=== PATIENT | male | born 1935 | race Caucasian/White ===

== ENCOUNTER 2017-09-09 00:18 | Emergency (ER) | payer MEDICARE, BC ==
[2017-09-09 00:43] LABS: BASOPHILS % (AUTO) 0.4 %; EOSINOPHILS # (AUTO) 0.6 10^3/uL (0.0-0.7); EOSINOPHILS % (AUTO) 11.1 %; HGB - HEMOGLOBIN 15.4 g/dL (14.0-18.0); LYMPHOCYTES # (AUTO) 1.3 10^3/uL (1.5-3.5); LYMPHOCYTES % (AUTO) 23.1 %; MEAN CORPUSCULAR HEMOGLOBIN 33.5 pg (27.0-31.0); MEAN CORPUSCULAR HGB CONC 33.6 g/dL (32.0-36.0); MEAN CORPUSCULAR VOLUME 99.8 fL (80.0-94.0); MEAN PLATELET VOLUME 7.5 fL (7.4-11.4); MONOCYTES % (AUTO) 17.8 %; NEUTROPHILS # (AUTO) 2.7 10^3/uL (1.5-6.6); NEUTROPHILS % (AUTO) 47.6 %; PLT - PLATELET COUNT 197 10^3/uL (130-450); RED CELL DISTRIBUTION WIDTH 13.5 % (12.0-15.0); WHITE BLOOD COUNT 5.8 x10^3/uL (4.8-10.8)
[2017-09-09 00:56] LABS: ALBUMIN/GLOBULIN RATIO 1.2 (1.0-2.2); BILIRUBIN,TOTAL 0.6 mg/dL (0.2-1.0); CREATININE 0.7 mg/dL (0.6-1.2); TOTAL PROTEIN 7.4 g/dL (6.7-8.2)
[2017-09-09] MEDS ORDERED: NITROGLYCERIN 50 MG/250 ML 50 MG/250 ML BOTTLE IV SCH (01:00)
--- NOTE | 2017-09-09 01:07 | XRAY Report ---
EXAM: CHEST RADIOGRAPHY EXAM DATE: 09/09/2017 12:54 AM. CLINICAL HISTORY: Chest pressure. COMPARISON: None. TECHNIQUE: 2 views. FINDINGS: Lungs/Pleura: No alveolar consolidation or pleural effusion seen. No pneumothorax. Mediastinum: Heart size upper normal. Other: None. IMPRESSION: 1. Heart size upper normal. No acute abnormality seen. [facility] Referring Provider Line: [phone] SITE ID: [id number]
--- NOTE | 2017-09-09 01:07 | XRAY Preliminary Report ---
Exam: XR CHEST 2 VIEW PA/LAT IMPRESSION: 1. Heart size upper normal. No acute abnormality seen. [facility] SITE ID: [id number]
[2017-09-09 01:20] LABS: PT - PROTHROMBIN TIME 10.9 secs (9.9-12.6)
--- NOTE | 2017-09-09 01:29 | ED Physician Documentation ---
History of Present Illness - Stated complaint Stated Complaint: CHEST PRESSURE - Chief complaint Chief Complaint: Cardiac - History obtained from History obtained from: Patient (pt here for evaluation of left sided rib pain. he states that it was a gradula onset at atounf 1600 today and has been constant since then until he arrived in the ER then it went away. pinpoint on the left sided of his chest, no change with movement, no nausea, no radiation, no shortness of breath, no travel, was symptom free at the time of my evaluation.) Review of Systems Constitutional: denies: Fever, Chills Throat: denies: Dental pain / toothache, Sore throat Cardiac: reports: Other (left sided rib pain). denies: Chest pain / pressure, Palpitations, Pedal edema, Calf pain Respiratory: denies: Dyspnea, Cough, Hemoptysis, Wheezing GI: denies: Abdominal Pain, Abdominal Swelling, Nausea, Vomiting, Diarrhea : denies: Dysuria Skin: denies: Rash, Lesions, Laceration (s) Musculoskeletal: denies: Neck pain, Back pain, Extremity pain, Joint pain, Extremity swelling Neurologic: denies: Generalized weakness, Altered mental status, Headache PD PAST MEDICAL HISTORY - Past Medical History Past Medical History: Yes Cardiovascular: Hypertension, High cholesterol, Coronary artery disease Neuro: None HEENT: None - Present Medications Home Medications: Ambulatory Orders Medication Instructions Recorded Confirmed Aspirin [Aspirin EC] 81 mg PO DAILY 09/09/17 09/09/17 Atorvastatin [Lipitor] 10 mg PO DAILY 09/09/17 09/09/17 Calcium Carbonate/Vitamin D3 1 tab PO DAILY 09/09/17 09/09/17 [Calcium 500-Vit D3 600 Caplet] Carvedilol Phosphate [Coreg Cr] 40 mg PO DAILY 09/09/17 09/09/17 Cholecalciferol (Vitamin D3) 2,000 unit PO DAILY 09/09/17 09/09/17 [Vitamin D3] Diltiazem HCl [Diltiazem 24Hr Cd] 300 mg PO DAILY 09/09/17 09/09/17 Doxycycline Hyclate 50 mg PO DAILY 09/09/17 09/09/17 Krill Oil/[place]-3/Dha/Epa [[place]-3 1 cap PO DAILY 09/09/17 09/09/17 Krill Oil Softgel] Lisinopril 30 mg PO DAILY 09/09/17 09/09/17 Lutein/Zeaxanthin [Ocuvite Lutein 1 cap PO DAILY 09/09/17 09/09/17 25-5 mg Softgel] Ubidecarenone [Co Q-10] 300 mg PO DAILY 09/09/17 09/09/17 - Allergies Allergies/Adverse Reactions: Allergies Allergy/AdvReac Type Severity Reaction Status Date / Time No Known Drug Allergies Allergy Verified 09/09/17 00:22 - Social History Does the pt smoke?: No Smoking Status: Never smoker PD ED PE NORMAL - Vitals Vital signs reviewed: Yes - General General: Alert and oriented X 3, No acute distress, Well developed/nourished - HEENT HEENT: Atraumatic, Moist mucous membranes - Cardiac Cardiac: RRR, No murmur, No gallop, No rub - Respiratory Respiratory: No respiratory distress, Clear bilaterally - Abdomen Abdomen: Soft, Non tender, Non distended - Back Back: No CVA TTP, No spinal TTP - Derm Derm: Normal color, Warm and dry, No rash - Extremities Extremities: No edema, No calf tenderness / cord - Neuro Neuro: Alert and oriented X 3, Normal speech Eye Opening: Spontaneous Motor: Obeys Commands Verbal: Oriented GCS Score: 15 - Psych Psych: Normal mood, Normal affect Results - Vitals Vitals: Vital Signs - 24 hr 09/09/17 09/09/17 00:22 01:02 Temperature 36.9 C Heart Rate 78 67 Respiratory 18 18 Rate Blood Pressure 195/93 H 165/82 H O2 Saturation 95 97 Oxygen O2 Source Room air - EKG (time done) 0024 Rate: Rate (enter#) Rhythm: NSR [place]: Normal Intervals: Normal [place]. No: Prolonged QT QRS: Normal Ischemia: Normal ST segments - Labs Labs: Laboratory Tests 09/09/17 09/09/17 09/09/17 00:30 00:30 00:30 WBC 5.8 RBC 4.60 L Hgb 15.4 Hct 45.9 MCV 99.8 H MCH 33.5 H MCHC 33.6 RDW 13.5 Plt Count 197 MPV 7.5 Neut # 2.7 Lymph # 1.3 L [place] # 1.0 Eos # 0.6 Baso # 0.0 Absolute Nucleated RBC 0.00 Nucleated RBC % 0.0 PT INR APTT Sodium 140 Potassium 3.6 Chloride 102 Carbon Dioxide 28 Anion Gap 10.0 BUN 11 Creatinine 0.7 Estimated GFR (MDRD) 108 Glucose 200 H Calcium 9.0 Total Bilirubin 0.6 AST 20 ALT 17 Alkaline Phosphatase 59 Troponin I < 0.04 Total Protein 7.4 Albumin 4.0 Globulin 3.4 Albumin/Globulin Ratio 1.2 Lipase 26 09/09/17 01:00 WBC RBC Hgb Hct MCV MCH MCHC RDW Plt Count MPV Neut # Lymph # [place] # Eos # Baso # Absolute Nucleated RBC Nucleated RBC % PT 10.9 INR 1.0 APTT 29.9 Sodium Potassium Chloride Carbon Dioxide Anion Gap BUN Creatinine Estimated GFR (MDRD) Glucose Calcium Total Bilirubin AST ALT Alkaline Phosphatase Troponin I Total Protein Albumin Globulin Albumin/Globulin Ratio Lipase - Rads (name of study) CXR Radiology: Final report received (No acute changes) PD MEDICAL DECISION MAKING - ED course Complexity details: reviewed results, re-evaluated patient, considered differential, d/w patient ED course: pt with pinpoint left sided rib pain that had resolved by the time of my evaluation. He had a neg trop and normal ECG > 6 hours after the onset of the symptoms. pt CXR neg. doubt ACS now. we discussed his symptoms and his blood pressure. he is on medications for his HTN and will follow up with his PCM. pt was given return precautions. Departure - Departure Disposition: 01 Home, Self Care Clinical Impression: Chest wall pain Condition: Good Instructions: ED Chest Pain NonCardiac Follow-Up: ZEYAD LAL PA-C [Primary Care Provider] - Comments: Recommend that you contact your primary care provider for a follow up in the next couple days. Continue all of your medications. Return to the ER for any new or worsening symptoms.
[2017-09-09 02:12] VITALS: BP 174/85
== END 2017-09-09 02:18 | disposition home or self-care (01) ==
LOC: ED 00:18
DX: R07.89 Other chest pain (principal); I10 Essential (primary) hypertension; E78.00 Pure hypercholesterolemia, unspecified; I25.10 Atherosclerotic heart disease of native coronary artery without angina pectoris; Z79.82 Long term (current) use of aspirin
CPT/HCPCS: 36415; 71020; 80053; 83690; 84484; 85025; 85610; 85730; 93005; 99283

== ENCOUNTER 2019-07-20 12:57 | Inpatient (IN) | payer MEDICARE, BC ==
--- NOTE | 2019-07-20 13:26 | ED Physician Documentation ---
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 He has long-standing issues with his left eye and over the last week has developed abdominal distention, constipation and some abdominal pain as well as generalized weakness and multiple falls without injury. He does drink alcohol daily. He denies any history of abdominal surgeries.) Review of Systems Ten Systems: 10 systems reviewed and negative Constitutional: reports: Fatigue. denies: Fever, Chills Cardiac: denies: Chest pain / pressure, Palpitations Respiratory: denies: Dyspnea, Cough GI: reports: Abdominal Pain, Abdominal Swelling, Constipation. denies: Nausea, Vomiting : denies: Dysuria PD PAST MEDICAL HISTORY - Past Medical History Cardiovascular: Hypertension, High cholesterol, Coronary artery disease HEENT: None - Present Medications Home Medications: Ambulatory Orders Medication Instructions Recorded Confirmed Aspirin [Aspirin EC] 81 mg PO DAILY 09/09/17 09/09/17 Atorvastatin [Lipitor] 10 mg PO DAILY 09/09/17 09/09/17 Calcium Carbonate/Vitamin D3 1 tab PO DAILY 09/09/17 09/09/17 [Calcium 500-Vit D3 600 Caplet] Carvedilol Phosphate [Coreg Cr] 40 mg PO DAILY 09/09/17 09/09/17 Cholecalciferol (Vitamin D3) 2,000 unit PO DAILY 09/09/17 09/09/17 [Vitamin D3] Doxycycline Hyclate 50 mg PO DAILY 09/09/17 09/09/17 Krill Oil/[place]-3/Dha/Epa [[place]-3 1 cap PO DAILY 09/09/17 09/09/17 Krill Oil Softgel] Lisinopril 30 mg PO DAILY 09/09/17 09/09/17 Lutein/Zeaxanthin [Ocuvite Lutein 1 cap PO DAILY 09/09/17 09/09/17 25-5 mg Softgel] Ubidecarenone [Co Q-10] 300 mg PO DAILY 09/09/17 09/09/17 dilTIAZem HCl [Diltiazem 24Hr Cd] 300 mg PO DAILY 09/09/17 09/09/17 - Allergies Allergies/Adverse Reactions: Allergies Allergy/AdvReac Type Severity Reaction Status Date / Time No Known Drug Allergies Allergy Verified 09/09/17 00:22 - Social History Does the pt smoke?: No Smoking Status: Never smoker - Family History Family history: reports: Non contributory PD ED PE NORMAL - Vitals Vital signs reviewed: Yes (Initial vital signs in the room are much better than they were in triage) - General General: Alert and oriented X 3, No acute distress - HEENT HEENT: Other (He has a patch over the left eye) - Neck Neck: Supple, no meningeal sign, No bony TTP - Cardiac Cardiac: RRR, No murmur - Respiratory Respiratory: No respiratory distress, Clear bilaterally - Abdomen Abdomen: Other (Distended abdomen, tympanitic to percussion, nontender.) - Back Back: No CVA TTP, No spinal TTP - Derm Derm: Normal color, Warm and dry - Extremities Extremities: No edema, No calf tenderness / cord - Neuro Neuro: Alert and oriented X 3, Normal speech Results - Vitals Vitals: Vital Signs - 24 hr 07/20/19 07/20/19 07/20/19 13:12 13:40 13:47 Temperature 95 C H Heart Rate 53 L 64 Respiratory 18 18 Rate Blood Pressure 72/50 L 125/71 O2 Saturation 87 L 88 L 93 07/20/19 07/20/19 15:00 16:03 Temperature Heart Rate 64 63 Respiratory 23 23 Rate Blood Pressure 123/69 136/79 H O2 Saturation 95 92 Oxygen O2 Source Nasal cannula - EKG (time done) 1353 Rate: Rate (enter#) (63) Rhythm: NSR [place]: Normal Intervals: Normal [place] QRS: LVH Ischemia: Normal ST segments, Q waves (inferior) Computer interpretation: Agree with computer - Labs Labs: Laboratory Tests 07/20/19 07/20/19 07/20/19 13:29 13:29 13:29 WBC 8.6 RBC 4.31 L Hgb 14.9 Hct 44.6 MCV 103.5 H MCH 34.6 H MCHC 33.4 RDW 13.8 Plt Count 191 MPV 9.9 Neut # (Auto) 6.1 Lymph # (Auto) 1.1 L [place] # (Auto) 1.3 H Eos # (Auto) 0.1 Baso # (Auto) 0.0 Absolute Nucleated RBC 0.00 Nucleated RBC % 0.0 Manual Slide Review Indicated RBC Morph Micro Appear 1+ ANISOCYTOSIS PT 11.2 INR 1.0 Sodium 136 Potassium 3.9 Chloride 96 L Carbon Dioxide 27 Anion Gap 13.0 BUN 32 H Creatinine 1.2 Estimated GFR (MDRD) 58 L Glucose 169 H Lactic Acid Calcium 9.5 Total Bilirubin 1.7 H AST 66 H ALT 58 Alkaline Phosphatase 72 Total Protein 6.9 Albumin 3.7 Globulin 3.2 Albumin/Globulin Ratio 1.2 Lipase 26 Ethyl Alcohol < 5.0 07/20/19 13:29 WBC RBC Hgb Hct MCV MCH MCHC RDW Plt Count MPV Neut # (Auto) Lymph # (Auto) [place] # (Auto) Eos # (Auto) Baso # (Auto) Absolute Nucleated RBC Nucleated RBC % Manual Slide Review RBC Morph Micro Appear PT INR Sodium Potassium Chloride Carbon Dioxide Anion Gap BUN Creatinine Estimated GFR (MDRD) Glucose Lactic Acid 2.8 H Calcium Total Bilirubin AST ALT Alkaline Phosphatase Total Protein Albumin Globulin Albumin/Globulin Ratio Lipase Ethyl Alcohol - Rads (name of study) Ct A/P Radiology: EMP read contemporaneously (Large and small bowel obstruction with transition in the sigmoid concerning for an occult colon cancer. Liver lesion needing follow-up, small ascites, trace right pleural effusion, cardiomegaly, underdistended IVC) PD MEDICAL DECISION MAKING - ED course ED course: 84-year-old gentleman presents with a progressive abdominal distention associated with decreased bowel movements but no vomiting. CT as shown concerning for a bowel obstruction potentially due to an occult malignancy. Spoke with the on-call surgeon, Dr. Guajardo for consultation and admitted to the hospitalist, Dr. Garces. Departure - Departure Disposition: 66 [facility] DC/Xfer Clinical Impression: Bowel obstruction Qualifiers: Intestinal obstruction type: unspecified Intestinal obstruction extent: unspecified extent Qualified Code(s): K56.609 - Unspecified intestinal obstruction, unspecified as to partial versus complete obstruction Condition: Serious
[2019-07-20] MEDS ORDERED: IOVERSOL 320 100 ML VIAL IVP ONE ×2 (13:43→16:15)
[2019-07-20 13:46] LABS: BASOPHILS % (AUTO) 0.2 %; EOSINOPHILS # (AUTO) 0.1 10^3/uL (0.0-0.7); EOSINOPHILS % (AUTO) 1.3 %; HGB - HEMOGLOBIN 14.9 g/dL (14.0-18.0); LYMPHOCYTES # (AUTO) 1.1 10^3/uL (1.5-3.5); LYMPHOCYTES % (AUTO) 12.3 %; MEAN CORPUSCULAR HEMOGLOBIN 34.6 pg (27.0-31.0); MEAN CORPUSCULAR HGB CONC 33.4 g/dL (32.0-36.0); MEAN CORPUSCULAR VOLUME 103.5 fL (80.0-94.0); MEAN PLATELET VOLUME 9.9 fL (7.4-11.4); MONOCYTES # (AUTO) 1.3 10^3/uL (0.0-1.0); MONOCYTES % (AUTO) 14.6 %; NEUTROPHILS # (AUTO) 6.1 10^3/uL (1.5-6.6); NEUTROPHILS % (AUTO) 71.3 %; PLT - PLATELET COUNT 191 10^3/uL (130-450); RED BLOOD COUNT 4.31 10^6/uL (4.70-6.10); RED CELL DISTRIBUTION WIDTH 13.8 % (12.0-15.0); WHITE BLOOD COUNT 8.6 x10^3/uL (4.8-10.8)
[2019-07-20 13:47] LABS: PT - PROTHROMBIN TIME 11.2 secs (9.9-12.6)
[2019-07-20 13:59] LABS: ALBUMIN 3.7 g/dL (3.2-5.5); ALBUMIN/GLOBULIN RATIO 1.2 (1.0-2.2); ALKALINE PHOSPHATASE 72 IU/L (42-121); ALT ALANINE AMINOTRANSFERASE 58 IU/L (10-60); AST ASPARTATE AMINOTRANSFERASE 66 IU/L (10-42); BILIRUBIN,TOTAL 1.7 mg/dL (0.2-1.0); BUN - BLOOD UREA NITROGEN 32 mg/dL (6-20); CALCIUM 9.5 mg/dL (8.5-10.3); CARBON DIOXIDE - CO2 27 mmol/L (21-32); CHLORIDE 96 mmol/L (101-111); CREATININE 1.2 mg/dL (0.6-1.2); GFR - MDRD 58 (>89); GLUCOSE 169 mg/dL (70-100); LIPASE 26 U/L (22-51); SODIUM 136 mmol/L (135-145); TOTAL PROTEIN 6.9 g/dL (6.7-8.2)
[2019-07-20 14:00] LABS: RBC MORPHOLOGY (MULTIPLE) 1+ ANISOCYTOSIS (NORMAL)
[2019-07-20] MEDS ORDERED: SODIUM CHLORIDE 0.9% 1,000 ML IV ONE ×2 (15:02)
--- NOTE | 2019-07-20 15:50 | CT Report ---
Reason: IV only, abd pain Procedure Date: 07/20/2019 Accession Number: [id number] / [id number] Procedure: CT - Abdomen/Pelvis W CPT Code: Final Report FULL RESULT: EXAM: CT ABDOMEN AND PELVIS EXAM DATE: 07/20/2019 02:28 PM. CLINICAL HISTORY: Abdominal pain COMPARISONS: None. TECHNIQUE: Routine helical CT imaging was performed through the abdomen and pelvis. IV contrast: 90 cc Optiray 320. Enteric contrast: No. Reconstructions: Coronal and sagittal. In accordance with CT protocol optimization, one or more of the following dose reduction techniques were utilized for this exam: automated exposure control, adjustment of mA and/or KV based on patient size, or use of iterative reconstructive technique. FINDINGS: Imaged chest: Trace right pleural effusion with right lower lobe subsegmental atelectasis. Ground glass opacity within the left lingula and left lower lobe. Cardiomegaly and coronary artery disease. Liver: There is a 2 cm hypoenhancing lesion within the posterior aspect of segment 7 (image 21, series 3) which is nonspecific. The liver is diffusely decreased in attenuation consistent fatty infiltration. There is a linear 2 cm focus of hypoattenuation within segment 2/3 which may represent scarring. Gallbladder: Unremarkable. Biliary: Unremarkable. Pancreas: Unremarkable. Spleen: Unremarkable. Adrenal glands: Unremarkable. Kidneys: Right renal cyst. Otherwise unremarkable. Urinary bladder: Thick-walled which may be secondary to underdistention. Reproductive organs: Enlarged prostate. Bowel: Dilated small and large bowel with foci of pseudo-pneumatosis seen within the ascending colon and cecum. No obvious bowel wall thickening, however, there is liquid stool in the descending colon. There is an abrupt transition to normal caliber within the proximal sigmoid colon (series 5, image 33) without obvious mass, however, there is a adjacent prominent mesenteric lymph node. Stomach: Unremarkable. Appendix: Unremarkable. Miscellaneous: Small ascites. No extraluminal gas. Aorta: Mild aortic atherosclerosis. Normal in caliber. IVC: Underdistended. Lymph nodes: No pathologically enlarged lymph nodes identified. Bones: Several healing right anterior rib fractures. There is a nonspecific 4.5 mm sclerotic lesion in T5. Sidewalls: Small fat-containing left inguinal hernia. IMPRESSION: 1. Dilated small and large bowel with abrupt transition to normal caliber in the proximal sigmoid colon. No obvious mass, however, there is an adjacent prominent mesenteric lymph node. No obvious bowel wall thickening. There is pseudo-pneumatosis within the ascending colon. Given abrupt transition point findings concerning for occult colon cancer. However, liquid stool in the colon and small bowel could be seen in enterocolitis. Recommend Gastroenterology consultation and colonoscopy for further evaluation. 2. Suspicious 2 cm hypoenhancing lesion within the right posterior liver. Recommend nonemergent MRI liver for further evaluation. 3. Small ascites. 4. Trace right pleural effusion with right lower lobe subsegmental atelectasis. Ground glass opacity within the left lingula and left lower lobe favored to represent atelectasis, however, infection/inflammation could have a similar appearance. 6. Cardiomegaly. 7. Underdistended IVC suggests dehydration. DEMARCO The above call report findings were discussed with Romero Tracey by Dr. Joe Orosco at 03:36 PM on 07/20/2019.
--- NOTE | 2019-07-20 16:02 | CONSULTATION NOTE ---
Referring Provider Name of Referring Provider:: arlene Consult Date: 07/20/19 Chief Complaint - Chief Complaint Chief Complaint: Abd distention / no BM x 3 days History of Present Illness - Admitted From Admitted From:: ED - History Obtained From Records Reviewed: yes History obtained from: ED record Exam Limitations: None - History of Present Illness HPI Comment/Other: 84 yo/wm w/abd distention and no BM x 3 days R/O bowel obst History - Past Medical History Cardiovascular: reports: Hypertension, High cholesterol, Coronary artery disease HEENT: reports: None MRSA Hx?: No - Family & Social History Living arrangement: At home Living Situation: With spouse/s.o. Meds/Allgy - Home Medications Home Medications: Ambulatory Orders Medication Instructions Recorded Confirmed Aspirin [Aspirin EC] 81 mg PO DAILY 09/09/17 09/09/17 Atorvastatin [Lipitor] 10 mg PO DAILY 09/09/17 09/09/17 Calcium Carbonate/Vitamin D3 1 tab PO DAILY 09/09/17 09/09/17 [Calcium 500-Vit D3 600 Caplet] Carvedilol Phosphate [Coreg Cr] 40 mg PO DAILY 09/09/17 09/09/17 Cholecalciferol (Vitamin D3) 2,000 unit PO DAILY 09/09/17 09/09/17 [Vitamin D3] Doxycycline Hyclate 50 mg PO DAILY 09/09/17 09/09/17 Krill Oil/[place]-3/Dha/Epa [[place]-3 1 cap PO DAILY 09/09/17 09/09/17 Krill Oil Softgel] Lisinopril 30 mg PO DAILY 09/09/17 09/09/17 Lutein/Zeaxanthin [Ocuvite Lutein 1 cap PO DAILY 09/09/17 09/09/17 25-5 mg Softgel] Ubidecarenone [Co Q-10] 300 mg PO DAILY 09/09/17 09/09/17 dilTIAZem HCl [Diltiazem 24Hr Cd] 300 mg PO DAILY 09/09/17 09/09/17 - Allergies Allergies/Adverse Reactions: Allergies Allergy/AdvReac Type Severity Reaction Status Date / Time No Known Drug Allergies Allergy Verified 09/09/17 00:22 Review of Systems - Constitutional Constitutional: reports: Fatigue, Poor appetite - Eyes Eyes: reports: Other (Watering left eye) - Gastrointestinal Gastrointestinal: reports: Abdominal distention, Constipation, Change in bowel habits Exam - Vital Signs Reviewed Vital Signs: Yes Vital Signs: Vital Signs x48h Temp Pulse Resp BP Pulse Ox 07/20/19 15:00 64 23 123/69 95 07/20/19 13:47 93 07/20/19 13:40 95 C H 64 18 125/71 88 L 07/20/19 13:12 53 L 18 72/50 L 87 L - Physical Exam General Appearance: positive: No acute distress Eyes Bilateral: positive: Other (Patch OS) Respiratory: positive: Chest non-tender, No respiratory distress, Breath sounds nml Cardiovascular: positive: Regular rate & rhythm Abdomen: positive: Non-tender, Nml bowel sounds, Other (Abd distention) Conclusion/Plan - Diagnosis Diagnosis: Possible large bowel obstruction - Plan Plan: Hospitalist to admit Observation Recommend return flow enema - Lab Results Lab results reviewed: Yes Fish Bones: 07/20/19 13:29 07/20/19 13:29 - Diagnostic Imaging Results Diagnostic Imaging Results: positive: Final report reviewed
[2019-07-20] MEDS ORDERED: ACETAMINOPHEN 325 MG TABLET PO PRN (16:12)
[2019-07-20] MEDS ORDERED: ONDANSETRON 4 MG/2 ML VIAL IVP PRN (16:12)
[2019-07-20] MEDS ORDERED: METOPROLOL 5 MG/5 ML VIAL IVP PRN (16:56)
--- NOTE | 2019-07-20 17:13 | HISTORY & PHYSICAL EXAMINATION ---
Chief Complaint - Chief Complaint Chief Complaint: abdominal distension History of Present Illness - History of Present Illness HPI Comment/Other: Mr. 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 HLD, CAD, who presents ER by private vehicle accompanied by his , complain of abdominal distension. pt report he has abdominal distended for three days. He report he did not have bowel movement for three days as well. He denies nausea, vomiting or abdominal pain. He report he did not eat much for three days because of distended abdomen. he report he never had EGD or colonoscopy. He report he has long-standing issues with his left eye. he also report he has generalized weakness and multiple falls but without injury. He denies any history of abdominal surgeries. He denies recent weight loss, GI bleed. CT of abdomen reveals dilated small and large bowel with abrupt transition to normal caliber in the proximal sigmoid colon, concerning for occult colon cancer. surgeon Dr. Guajardo was consulted. Dr. Guajardo recommended to have return flow enema for pt. pt is admitted for above medical reason. History - Past Medical History Cardiovascular: reports: Hypertension, High cholesterol, Coronary artery disease HEENT: reports: None MRSA Hx?: No - Family & Social History Family History: Mother: , Alzheimer's Disease, Father: Family History Comment/Other: pt report his mother from dementia at age 78, he is unclear to his father's health condition. he had two children. Living arrangement: At home Living Situation: With spouse/s.o. Social History Notes: he denies cigarette smoker, alcohol and drug issue. he r eport he was a professor of [employer] [place] before he was retired. he is living at [place] with his . - POLST POLST Status: DNR Meds/Allgy - Home Medications Home Medications: Ambulatory Orders Medication Instructions Recorded Confirmed Aspirin [Aspirin EC] 81 mg PO DAILY 09/09/17 09/09/17 Atorvastatin [Lipitor] 10 mg PO DAILY 09/09/17 09/09/17 Calcium Carbonate/Vitamin D3 1 tab PO DAILY 09/09/17 09/09/17 [Calcium 500-Vit D3 600 Caplet] Carvedilol Phosphate [Coreg Cr] 40 mg PO DAILY 09/09/17 09/09/17 Cholecalciferol (Vitamin D3) 2,000 unit PO DAILY 09/09/17 09/09/17 [Vitamin D3] Doxycycline Hyclate 50 mg PO DAILY 09/09/17 09/09/17 Krill Oil/Colo-3/Dha/Epa [Colo-3 1 cap PO DAILY 09/09/17 09/09/17 Krill Oil Softgel] Lisinopril 30 mg PO DAILY 09/09/17 09/09/17 Lutein/Zeaxanthin [Ocuvite Lutein 1 cap PO DAILY 09/09/17 09/09/17 25-5 mg Softgel] Ubidecarenone [Co Q-10] 300 mg PO DAILY 09/09/17 09/09/17 dilTIAZem HCl [Diltiazem 24Hr Cd] 300 mg PO DAILY 09/09/17 09/09/17 - Allergies Allergies/Adverse Reactions: Allergies Allergy/AdvReac Type Severity Reaction Status Date / Time No Known Drug Allergies Allergy Verified 09/09/17 00:22 Review of Systems - Constitutional Constitutional: denies: Fatigue, Fever, Chills, Malaise, Weakness, Poor appetite, Diaphoresis, Night sweats - Eyes Eyes: denies: Pain, Irritation, Spots in vision, Field loss, Vision loss, Dipolpia - Ears, Nose & Throat Ears, Nose & Throat: denies: Ear pain, Hearing loss, Hearing aids, Tinnitus, Vertigo, Nasal pain, Nasal discharge, Nosebleeds, Nasal obstruction, Nasal con gestion, Postnasal drainage, Dentures, Sore throat, Hoarseness, Mouth lesions - Cardiovascular Cariovascular: denies: Irregular heart rate, Palpitations, Chest pain, Edema, Lightheadedness, Syncope, Exertional dyspnea, Decr. exercise tolerance - Respiratory Respiratory: denies: Cough, Sputum production, Wheezing, Snoring, Hemoptysis, Orthopnea, SOB at rest, SOB with exertion - Gastrointestinal Gastrointestinal: reports: Abdominal distention. denies: Abdominal pain, Constipation, Diarrhea, Change in bowel habits, Rectal bleeding, Black stools, Bloody stools, Nausea, Vomiting, Bile emesis, Cesar blood emesis, Coffee grounds emesis, Reflux/heartburn - Genitourinary Genitourinary: denies: Dysuria, Frequency, Urgency, Hematuria, Incontinence, Flank pain, Nocturia - Musculoskeletal Musculoskeletal: denies: Muscle pain, Back pain, Muscle aches, Stiffness, Limited range of motion, Muscle weakness - Integumentary Integumentary: denies: Rash, Pruritis, Lesions, Dryness, Lumps, Acne, Pigment changes - Neurological Neurological: denies: General weakness, Focal weakness, Headache, Dizziness, Numbness, Memory problems, Pre-existing deficit, Abnormal gait, Seizures, Incoordination, Slurred speech - Psychiatric Psychiatric: denies: Depression, Anxiety, Suicidal, Delusions, Hallucinations, Homicidal - Endocrine Endocrine: denies: Polyuria, Polydypsia, Polyphagia - Hematologic/Lymphatic Hematologic/Lymphatic: denies: Anemia, Bruising, Petechiae, Blood clots, Lymphadenopathy, Bleeding tendencies Exam - Vital Signs Reviewed Vital Signs: Yes Vital Signs: Vital Signs x48h Temp Pulse Resp BP Pulse Ox 07/20/19 17:00 62 18 133/75 H 91 L 07/20/19 16:03 63 23 136/79 H 92 07/20/19 15:00 64 23 123/69 95 07/20/19 13:47 93 07/20/19 13:40 95 C H 64 18 125/71 88 L 07/20/19 13:12 53 L 18 72/50 L 87 L - Physical Exam General Appearance: positive: No acute distress, Alert. negative: Lethargic Eyes Bilateral: positive: Normal inspection, PERRL ENT: positive: ENT inspection nml, Pharynx nml. negative: Purulent nasal drainage Neck: positive: Nml inspection, Thyroid nml, No JVD, Trachea midline. negative: Thyromegaly, Lymphadenopathy (R), Lymphadenopathy (L), Stiff neck, Tracheal deviation Respiratory: positive: Chest non-tender, No respiratory distress, Breath sounds nml. negative: Wheezes, Rales, Rhonchi Cardiovascular: positive: Regular rate & rhythm, No murmur, No gallop. negative: Irregularly irregular, Bradycardia, JVD present, Systolic murmur, Diastolic murmur Peripheral Pulses: positive: 2+ Abdomen: positive: Abnml bowel sounds, Other (abdomen extensive distention, but without tenderness, significant reduced bowel sound). negative: Tenderness, Guarding, Rebound Back: positive: Nml inspection. negative: CVA tenderness (R), CVA tenderness (L) Skin: positive: Color nml, No rash, Warm, Dry. negative: Cyanosis, Diaphoresis, Pallor Extremities: positive: Non-tender, Nml appearance. negative: Calf tenderness, Columba's sign/cords Neurologic/Psychiatric: positive: Oriented x3, Sensation nml. negative: Weakness, Sensory loss, Facial droop, Slurred/abnml speech, Depressed mood/affect Sepsis Event Note (H) - Evaluation Current Stage of Sepsis: Ruled out Conclusion/Plan - Problem List (1) Abdominal distention Conclusion/Plan: pt present extensive abdominal distention, but pt did not have N/V and obvious abdominal pain. pt report he has no bowel movement for three days. CT reveals dilation at proximal large colon close to sigmoid area, also concern of occult colon cancer. pt has never had EGD or colonoscopy in his life. GI surgeon was consulted in ER, and recommend to have return flow enema for pt now. NPO with IVF of NS since pt has no N/V, NG is not needed now PRN meds for abdominal pain and nausea lab and vital and tele monitor (2) HTN (hypertension) Conclusion/Plan: stable now, since any meds is switched IV, PRN metoprolol IV now. vital monitor closely (3) HLD (hyperlipidemia) Conclusion/Plan: pt has home lipitor, hold now since NPO, will reconcile after pharmacy verify (4) Hx of coronary artery disease Conclusion/Plan: stable, denies chest pain, palpitation. will reconcile home meds after verified (5) Dehydration Conclusion/Plan: pt report he did not drink much water since his abdomen distended. pt clinic present dry mouth and dehydration IVF of NS lab and vital monitor (6) Do not attempt intubation Conclusion/Plan: pt request do not attempt intubation, but wish to have CPR, chest compression for his code status - Lab Results Lab results reviewed: Yes Fish Bones: 07/20/19 13:29 07/20/19 13:29 Core Measures - Anticipated LOS I expect patient to be DC'd or transferred within 96 hours.: Yes - DVT/VTE - Prophylaxis VTE/DVT Device ordered at admit?: Yes VTE/DVT Prophylaxis med ordered at admit?: Yes
[2019-07-20] MEDS: SODIUM CHLORIDE 0.9% 1,000 ML IV SCH (18:09)
[2019-07-20] MEDS: SODIUM CHLORIDE FLUSH 0.9% 10 ML SYRINGE IVP PRN (18:10)
[2019-07-20] MEDS ORDERED: hydrALAZINE INJ 20 MG/ML VIAL IVP PRN (18:27)
[2019-07-20] MEDS: SODIUM CHLORIDE FLUSH 0.9% 10 ML SYRINGE IVP SCH (23:50)
[2019-07-21 01:14] LABS: GLUCOSE, URINE (UA) NEGATIVE (NEGATIVE); KETONES,URINE (UA) 15 mg/dL (NEGATIVE); LEUKOCYTE ESTERASE, URINE NEGATIVE (NEGATIVE); NITRITE,URINE NEGATIVE (NEGATIVE); OCCULT BLOOD,URINE TRACE-INTA (NEGATIVE); PH,URINE 6.5 PH (5.0-7.5); PROTEIN,URINE TRACE mg/dL (NEGATIVE); UROBILINOGEN,URINE 1 (NORMAL) E.U./dL (NORMAL)
[2019-07-21 01:16] LABS: CLARITY,URINE CLEAR (CLEAR)
[2019-07-21 01:18] LABS: BILIRUBIN,URINE NEGATIVE (NEGATIVE); ICTOTEST,URINE NEGATIVE
[2019-07-21] MEDS: SODIUM CHLORIDE 0.9% 1,000 ML IV SCH (04:21)
[2019-07-21 05:03] LABS: BASOPHILS % (AUTO) 0.3 %; HGB - HEMOGLOBIN 13.8 g/dL (14.0-18.0); LYMPHOCYTES % (AUTO) 20.2 %; MEAN CORPUSCULAR HEMOGLOBIN 34.4 pg (27.0-31.0); MEAN CORPUSCULAR HGB CONC 33.2 g/dL (32.0-36.0); MEAN CORPUSCULAR VOLUME 103.7 fL (80.0-94.0); MEAN PLATELET VOLUME 9.8 fL (7.4-11.4); MONOCYTES % (AUTO) 23.8 %; NEUTROPHILS % (AUTO) 55.4 %; PLT - PLATELET COUNT 166 10^3/uL (130-450); RED BLOOD COUNT 4.01 10^6/uL (4.70-6.10); RED CELL DISTRIBUTION WIDTH 14.1 % (12.0-15.0); WHITE BLOOD COUNT 3.3 x10^3/uL (4.8-10.8)
[2019-07-21 05:04] LABS: ALBUMIN 3.1 g/dL (3.2-5.5); ALBUMIN/GLOBULIN RATIO 1.1 (1.0-2.2); BILIRUBIN,TOTAL 1.6 mg/dL (0.2-1.0); CALCIUM 8.5 mg/dL (8.5-10.3); CREATININE 0.8 mg/dL (0.6-1.2); MAGNESIUM 2.8 mg/dL (1.7-2.8)
[2019-07-21 05:06] LABS: ABNORMAL LYMPHS % (MANUAL) 0 %
[2019-07-21 05:20] LABS: BAND NEUTROPHILS % (MANUAL) 27 %; DIFFERENTIAL COMMENT MANUAL DIFFERENTIAL; LYMPHOCYTES # (MANUAL) 0.8 10^3/uL (1.5-3.5); LYMPHOCYTES % (MANUAL) 24 %; MONOCYTES # (MANUAL) 0.5 10^3/uL (0.0-1.0); PLATELET ESTIMATE, MANUAL NORMAL (130-450,000) (NORMAL); RBC MORPHOLOGY (MULTIPLE) NORMAL APPEARANCE (NORMAL)
[2019-07-21] MEDS: SODIUM CHLORIDE FLUSH 0.9% 10 ML SYRINGE IVP PRN ×2 (06:16→22:21)
[2019-07-21] MEDS ORDERED: PANTOPRAZOLE 40 MG VIAL IVP SCH (07:00)
[2019-07-21] MEDS ORDERED: ALBUTEROL NEB 2.5 MG/3 ML INH PRN (08:34)
[2019-07-21] MEDS ORDERED: IPRATROPIUM/ALBUTEROL 3 ML NEB INH PRN (08:35)
[2019-07-21] MEDS: ENOXAPARIN 40 MG/0.4 ML SYRINGE SUBQ SCH ×2 (08:53→11:40)
[2019-07-21] MEDS: SODIUM CHLORIDE FLUSH 0.9% 10 ML SYRINGE IVP SCH (08:54)
[2019-07-21] MEDS ORDERED: LIDOCAINE JELLY 2% 5 ML TUBE TOP ONE (09:00)
[2019-07-21] MEDS ORDERED: POTASSIUM CHLOR 10 MEQ/100 ML 10 MEQ/100 ML BAG IV ONE (09:00)
[2019-07-21 09:17] LABS: BASOPHILS % (AUTO) 0.3 %; HGB - HEMOGLOBIN 14.2 g/dL (14.0-18.0); LYMPHOCYTES # (AUTO) 0.7 10^3/uL (1.5-3.5); LYMPHOCYTES % (AUTO) 21.6 %; MEAN CORPUSCULAR HEMOGLOBIN 34.7 pg (27.0-31.0); MEAN CORPUSCULAR VOLUME 105.1 fL (80.0-94.0); MEAN PLATELET VOLUME 10.1 fL (7.4-11.4); MONOCYTES # (AUTO) 0.7 10^3/uL (0.0-1.0); MONOCYTES % (AUTO) 23.2 %; NEUTROPHILS # (AUTO) 1.7 10^3/uL (1.5-6.6); NEUTROPHILS % (AUTO) 54.6 %; PLT - PLATELET COUNT 176 10^3/uL (130-450); RED BLOOD COUNT 4.09 10^6/uL (4.70-6.10); RED CELL DISTRIBUTION WIDTH 14.1 % (12.0-15.0); WHITE BLOOD COUNT 3.1 x10^3/uL (4.8-10.8)
[2019-07-21] MEDS: MULTIVITAMIN 10 ML, THIAMINE INJ 100 MG, FOLIC ACID INJ 1 MG in SODIUM CHLORIDE 0.9% 1,... IV SCH (09:25)
[2019-07-21 09:42] LABS: RBC MORPHOLOGY (MULTIPLE) 2+ ANISOCYTOSIS (NORMAL)
--- NOTE | 2019-07-21 09:53 | XRAY Report ---
Reason: SOB Procedure Date: 07/21/2019 Accession Number: [id number] / [id number] Procedure: XR - Chest 1 View X-Ray CPT Code: 49982 Final Report FULL RESULT: EXAM: CHEST RADIOGRAPHY EXAM DATE: 07/21/2019 08:07 AM. CLINICAL HISTORY: Shortness of breath. COMPARISON: CHEST 2 VIEW PA/LAT 09/09/2017 12:42 AM. TECHNIQUE: 1 view. FINDINGS: Lungs/Pleura: Diminished lung volumes. Bibasilar atelectasis. No pneumothorax. Mediastinum: Cardiomegaly. Other: The visualized colon is distended with air. IMPRESSION: 1. Bibasilar atelectasis. RADIA
[2019-07-21] MEDS ORDERED: PHENOL THROAT SPRAY 177 ML MM PRN (11:31)
[2019-07-21] MEDS ORDERED: D5.45NS W/20 MEQ KCL 1,000 ML IV SCH (12:00)
--- NOTE | 2019-07-21 13:42 | XRAY Report ---
Reason: NG tube placement Procedure Date: 07/21/2019 Accession Number: [id number] / [id number] Procedure: XR - No-Charge 1V Abdomen CPT Code: 89178 Addended Final Report FULL RESULT: EXAM: ABDOMEN RADIOGRAPHY EXAM DATE: 07/21/2019 01:21 PM. CLINICAL HISTORY: NG tube placement. COMPARISON: ABDOMEN/PELVIS W/ 07/20/2019 2:19 PM. TECHNIQUE: 1 view. FINDINGS: Lung Bases: Unremarkable. Bowel Gas Pattern: There is copious gas dilation of small bowel and large bowel with maximum caliber of 11.4 cm. Free Air: Extraintestinal gas cannot be reliably assessed on supine projection only. Other: None. IMPRESSION: Prominent gaseous distention of small and large bowel can be seen with large bowel obstruction or ileus. Correlation is made to the recent CT abdomen and pelvis. DEMARCO The call report notification system was initiated by Dr. Rehan Murrieta at 01:40 PM on 07/21/2019. ADDENDUM: 07/21/2019 14:02 The above call report findings were discussed with Doctors Eloy and Bennett by Dr. Rehan Murrieta at 02:02 PM on 07/21/2019. ADDENDUM: 07/21/19 15:42 The enteric tube position is not confidently established given the large and small bowel gaseous dilatation as well as apical lordotic technique and possible pleural effusions/lung base consolidation. Would recommend reevaluation of enteric tube position following surgical intervention if clinically applicable.
[2019-07-21] MEDS ORDERED: SALINE ENEMA 133 ML BOTTLE RC SCH (14:00)
--- NOTE | 2019-07-21 14:21 | PROVIDER PROGRESS NOTE ---
Assessment/Plan - Problem List (1) Abdominal distention Assessment/Plan: 07/21 pt had twice of enema per surgeon's instruction. pt had one documented bowel movement of moderate size. pt still present abdomen distension but slightly reduced from yesterday. But pt also had nausea an vomiting. pt had NG tube now. I called Dr. Guajardo for pt's conditions. Dr. Guajardo tell me now pt will have procedure. I already ordered ECHO for pt as well. pt is NPO now. pt has hx of CAD. revised cardiac risk index for pre-operative risk is one point with 6% 30-day risk of , SD or cardiac arrest. pt present extensive abdominal distention, but pt did not have N/V and obvious abdominal pain. pt report he has no bowel movement for three days. CT reveals dilation at proximal large colon close to sigmoid area, also concern of occult colon cancer. pt has never had EGD or colonoscopy in his life. GI surgeon was consulted in ER, and recommend to have return flow enema for pt now. NPO with IVF of NS since pt has no N/V, NG is not needed now PRN meds for abdominal pain and nausea lab and vital and tele monitor (2)nausea and vomiting pt has n/v today morning. NG tube was ordered for pt, Xray was ordered to check NG tube position. NG sucked out about 400ml upper GI secretion now. continue anti-emesis PRN IVF of D5 1/2 NS with 20 meq K lab and vital, tele monitor pt (3) HTN (hypertension) Conclusion/Plan: stable now, since any meds is switched IV, PRN metoprolol IV now. vital monitor closely (4) HLD (hyperlipidemia) Conclusion/Plan: pt has home lipitor, hold now since NPO, will reconcile after pharmacy verify (5) Hx of coronary artery disease Conclusion/Plan: stable, denies chest pain, palpitation. will reconcile home meds after verified (6) Dehydration Conclusion/Plan: 07/21 pt's creatinine is improved, better. continue gently IVF, precaution of fluid overloaded pt report he did not drink much water since his abdomen distended. pt clinic present dry mouth and dehydration IVF of NS lab and vital monitor (7) alcohol abuse I did ask pt and his at pt's bedside about smoking, alcohol and drug hx. pt clearly told me he did not have all above. today morning, pt's told me and nurse, pt did have heavy alcohol drunk hx and had hx of withdrawal. pt presented some confused at today morning as well. Now pt's mental status is better, pt is alert and oriented to himself, and location but not time. CIWA protocol, ativan PRN as protocol Banana bag 1:1 check pt with neuro check - Current Meds Current Meds: Current Medications Generic Name Dose Route Start Last Admin Trade Name Freq PRN Reason Stop Dose Admin Enoxaparin Sodium 40 mg 07/21/19 09:00 07/21/19 11:40 Lovenox SUBQ Not Given DAILY BRO Multivitamins 10 ml/ Thiamine 1,011.2 mls @ 100 mls/hr 07/21/19 09:30 07/21/19 09:25 HCl 100 mg/ Folic Acid 1 mg/ IV 100 mls/hr Sodium Chloride DAILY BRO Administration Pantoprazole Sodium 40 mg 07/21/19 07:00 07/21/19 06:16 Protonix IVP 40 mg QDAC BRO Administration Phenol/Menthol 2 sprays 07/21/19 11:31 07/21/19 11:37 Chloraseptic MM 2 sprays Q2HR PRN Administration Throat Pain Sodium Chloride 10 ml 07/20/19 16:12 07/21/19 06:16 Normal Saline Flush 0.9% IVP 10 ml PRN PRN Administration NEEDED PER PROVIDER ORDERS Sodium Chloride 10 ml 07/21/19 01:00 07/21/19 08:54 Normal Saline Flush 0.9% IVP Not Given 0100,0900,1700 BRO - Lab Result Fish Bone Diagrams: 07/21/19 09:07 07/21/19 04:35 - Additional Planning My Orders: My Active Orders 07/20/19 16:12 Activity Orders [RC] Q2HR IO [RC] IOSHIFT Initiate Bowel Care Protocol [RC] .protocol Initiate Line Care Protocol [RC] QSHIFT Initiate Personal Care Protoco [RC] .protocol Oxygen Therapy [RC] Routine Telemetry- [RC] Q4HR Vital Signs [RC] 0800,1600,0000 Acetaminophen [Tylenol] 650 mg PO Q4HR PRN Morphine Inj (Carpuject) [Morphine (Carpuject)] 2 mg IVP Q2HR PRN Ondansetron Inj [Zofran Inj] 4 mg IVP Q6HR PRN Sodium Chloride Flush 0.9% [Normal Saline Flush 0.9%] 10 ml IVP PRN PRN Code Status [OTHERS] Routine Condition of Patient [OTHERS] Routine DVT Prophylaxis [OTHERS] Routine 07/20/19 16:14 IV Insert [RC] .ONCE NPO [DIET] 07/20/19 16:15 SCDs [RC] QSHIFT 07/20/19 16:56 Metoprolol Inj [Lopressor Inj] 5 mg IVP Q6H PRN 07/20/19 17:57 Code Status [OTHERS] Routine 07/20/19 18:27 hydrALAZINE INJ [Apresoline Inj] 10 mg IVP QID PRN 07/21/19 01:00 Sodium Chloride Flush 0.9% [Normal Saline Flush 0.9%] 10 ml IVP 0100,0900,1700 07/21/19 07:00 Pantoprazole [Protonix] 40 mg IVP QDAC 07/21/19 08:34 Albuterol 2.5 mg INH RTQ4H PRN 07/21/19 08:35 Nebulizer/MDI Tx. [RC] .QID Ipratropium/Albuterol [Duoneb] 3 ml INH RTQID PRN 07/21/19 08:36 NG Tube Care [RC] Q4HR 07/21/19 08:48 1:1 Observation [RC] Routine CIWA - AR Score Card [RC] Routine Routine Neuro Check [RC] Routine Routine Social Work Consult [CONS] Routine LORazepam INJ [Ativan Inj (Vial)] 1 mg IVP Q1H PRN 07/21/19 09:00 Enoxaparin [Lovenox] 40 mg SUBQ DAILY 07/21/19 09:30 Multivitamin [Infuvite] 10 ml Thiamine Inj [Vitamin B-1 Inj] 100 mg Folic Acid Inj 1 mg Sodium Chloride 0.9% [Normal Saline 0.9%] 1,000 ml IV DAILY 07/21/19 11:31 Phenol [Chloraseptic] 2 sprays MM Q2HR PRN 07/21/19 12:00 D5.45ns W/20 Meq KCl 1,000 ml IV 100 mls/hr 07/21/19 13:15 Enema [RC] .ONCE 07/22/19 05:00 CBC - COMP BLD CT W/AUTO DIFF [HEME] DAILYLAB CMP [COMPREHENSIVE METABOLIC PANEL] [CHEM] DAILYLAB 07/23/19 05:00 CBC - COMP BLD CT W/AUTO DIFF [HEME] DAILYLAB CMP [COMPREHENSIVE METABOLIC PANEL] [CHEM] DAILYLAB 07/24/19 05:00 CBC - COMP BLD CT W/AUTO DIFF [HEME] DAILYLAB CMP [COMPREHENSIVE METABOLIC PANEL] [CHEM] DAILYLAB 07/25/19 05:00 CBC - COMP BLD CT W/AUTO DIFF [HEME] DAILYLAB CMP [COMPREHENSIVE METABOLIC PANEL] [CHEM] DAILYLAB Subjective - Subjective Patient Reports: Feeling Better Objective Vital Signs: Vital Signs - 24 hr 07/20/19 07/20/19 07/20/19 15:00 16:03 17:00 Temperature Heart Rate 64 63 62 Heart Rate [ Brachial] Respiratory 23 23 18 Rate Blood Pressure 123/69 136/79 H 133/75 H Blood Pressure [Right Brachial artery] O2 Saturation 95 92 91 L 07/20/19 07/20/19 07/21/19 17:45 23:52 04:19 Temperature 36.3 C L 36.8 C 36.4 C L Heart Rate Heart Rate [ 60 70 79 Brachial] Respiratory 20 18 20 Rate Blood Pressure Blood Pressure 138/72 H 133/65 H 150/79 H [Right Brachial artery] O2 Saturation 93 95 91 L 07/21/19 07/21/19 07/21/19 08:00 10:29 11:45 Temperature 36.3 C L 37 C Heart Rate 83 Heart Rate [ 81 78 Brachial] Respiratory 22 14 22 Rate Blood Pressure Blood Pressure 146/73 H 133/68 H [Right Brachial artery] O2 Saturation 92 91 L Oxygen O2 Source Nasal cannula I&O (Last 24 Hrs): Intake and Output Totals x24h 07/19/19 07/20/19 07/21/19 23:59 23:59 23:59 Intake Total 1000 1030 Output Total 125 225 Balance 875 805 General: Alert, Mild distress HEENT: Atraumatic Neck: Supple Lymphatic: no adenopathy Neuro: Alert, Non Focal Cardiovascular: Regular rate, Normal S1, Normal S2 Respiratory: Chest non-tender, No respiratory distress Abdomen: Other (distended abdomen, reduced bowel sound, denies tenderness.) - Results Results: Laboratory Results WBC 3.1 x10^3/uL (4.8-10.8) L 07/21/19 09:07 RBC 4.09 10^6/uL (4.70-6.10) L 07/21/19 09:07 Hgb 14.2 g/dL (14.0-18.0) 07/21/19 09:07 Hct 43.0 % (42.0-52.0) 07/21/19 09:07 MCV 105.1 fL (80.0-94.0) H 07/21/19 09:07 MCH 34.7 pg (27.0-31.0) H 07/21/19 09:07 MCHC 33.0 g/dL (32.0-36.0) 07/21/19 09:07 RDW 14.1 % (12.0-15.0) 07/21/19 09:07 Plt Count 176 10^3/uL (130-450) 07/21/19 09:07 MPV 10.1 fL (7.4-11.4) 07/21/19 09:07 Neut # (Auto) 1.7 10^3/uL (1.5-6.6) 07/21/19 09:07 Lymph # (Auto) 0.7 10^3/uL (1.5-3.5) L 07/21/19 09:07 [place] # (Auto) 0.7 10^3/uL (0.0-1.0) 07/21/19 09:07 Eos # (Auto) 0.0 10^3/uL (0.0-0.7) 07/21/19 09:07 Baso # (Auto) 0.0 10^3/uL (0.0-0.1) 07/21/19 09:07 Absolute Nucleated RBC 0.00 x10^3/uL 07/21/19 09:07 Total Counted 100 07/21/19 04:35 Band Neuts % (Manual) 27 % (0-10) H 07/21/19 04:35 Abnorm Lymph % (Manual) 0 % 07/21/19 04:35 Nucleated RBC % 0.0 /100WBC 07/21/19 09:07 Neutrophils # (Manual) 2.0 10^3/uL (1.5-6.6) 07/21/19 04:35 Lymphocytes # (Manual) 0.8 10^3/uL (1.5-3.5) L 07/21/19 04:35 Monocytes # (Manual) 0.5 10^3/uL (0.0-1.0) 07/21/19 04:35 Eosinophils # (Manual) 0.0 10^3/uL (0-0.7) 07/21/19 04:35 Basophils # (Manual) 0.0 10^3/uL (0-0.1) 07/21/19 04:35 Differential Comment MANUAL DIFFERENTIAL 07/21/19 04:35 Manual Slide Review Indicated 07/21/19 09:07 Platelet Estimate NORMAL (130-450,000) (NORMAL) 07/21/19 04:35 RBC Morph Micro Appear 2+ ANISOCYTOSIS (NORMAL) 07/21/19 09:07 PT 11.2 secs (9.9-12.6) 07/20/19 13:29 INR 1.0 (0.8-1.2) 07/20/19 13:29 Sodium 139 mmol/L (135-145) 07/21/19 04:35 Potassium 3.4 mmol/L (3.5-5.0) L 07/21/19 04:35 Chloride 103 mmol/L (101-111) 07/21/19 04:35 Carbon Dioxide 23 mmol/L (21-32) 07/21/19 04:35 Anion Gap 13.0 (6-13) 07/21/19 04:35 BUN 41 mg/dL (6-20) H 07/21/19 04:35 Creatinine 0.8 mg/dL (0.6-1.2) 07/21/19 04:35 Estimated GFR (MDRD) 92 (>89) 07/21/19 04:35 Glucose 122 mg/dL (70-100) H 07/21/19 04:35 Lactic Acid 1.2 mmol/L (0.5-2.2) 07/20/19 18:28 Calcium 8.5 mg/dL (8.5-10.3) 07/21/19 04:35 Magnesium 2.8 mg/dL (1.7-2.8) 07/21/19 04:35 Total Bilirubin 1.6 mg/dL (0.2-1.0) H 07/21/19 04:35 AST 47 IU/L (10-42) H 07/21/19 04:35 ALT 51 IU/L (10-60) 07/21/19 04:35 Alkaline Phosphatase 61 IU/L (42-121) 07/21/19 04:35 Total Protein 6.0 g/dL (6.7-8.2) L 07/21/19 04:35 Albumin 3.1 g/dL (3.2-5.5) L 07/21/19 04:35 Globulin 2.9 g/dL (2.1-4.2) 07/21/19 04:35 Albumin/Globulin Ratio 1.1 (1.0-2.2) 07/21/19 04:35 Lipase 26 U/L (22-51) 07/20/19 13:29 Urine Color DARK YELLOW 07/20/19 23:35 Urine Clarity CLEAR (CLEAR) 07/20/19 23:35 Urine pH 6.5 PH (5.0-7.5) 07/20/19 23:35 Ur Specific [place] <=1.005 (1.002-1.030) 07/20/19 23:35 Urine Protein TRACE mg/dL (NEGATIVE) 07/20/19 23:35 Urine Glucose (UA) NEGATIVE mg/dL (NEGATIVE) 07/20/19 23:35 Urine Ketones 15 mg/dL (NEGATIVE) H 07/20/19 23:35 Urine Occult Blood TRACE-INTA (NEGATIVE) 07/20/19 23:35 Urine Nitrite NEGATIVE (NEGATIVE) 07/20/19 23:35 Urine Bilirubin NEGATIVE (NEGATIVE) 07/20/19 23:35 Urine Urobilinogen 1 (NORMAL) E.U./dL (NORMAL) 07/20/19 23:35 Ur Leukocyte Esterase NEGATIVE (NEGATIVE) 07/20/19 23:35 Ur Microscopic Review NOT INDICATED 07/20/19 23:35 Urine Culture Comments NOT INDICATED 07/20/19 23:35 Ethyl Alcohol < 5.0 mg/dL 07/20/19 13:29 Sepsis Event Note (H) - Evaluation Current Stage of Sepsis: Ruled out ABX Reporting Has patient been on IV antibiotics over the past 48 hours?: No Current Medications - Current Medications Current Medications: Active Medications Acetaminophen (Tylenol) 650 mg PO Q4HR PRN PRN Reason: Pain 1 to 4 Albuterol () 2.5 mg INH RTQ4H PRN PRN Reason: Wheezing Albuterol/Ipratropium (Duoneb) 3 ml INH RTQID PRN PRN Reason: Shortness of Air/Wheezing Enoxaparin Sodium (Lovenox) 40 mg SUBQ DAILY [facility] Last Admin: 07/21/19 11:40 Dose: Not Given Hydralazine HCl (Apresoline Inj) 10 mg IVP QID PRN PRN Reason: Hypertensive Emergency Multivitamins 10 ml/ Thiamine HCl 100 mg/ Folic Acid 1 mg/Sodium Chloride 1,011.2 mls @ 100 mls/hr IV DAILY [facility] Last Admin: 07/21/19 09:25 Dose: 100 mls/hr Potassium Chloride/Dextrose/Sod Cl (D5.45ns W/20 Meq Kcl) 1,000 mls @ 75 mls/hr IV .[id number] [facility] Lorazepam (Ativan Inj (Vial)) 1 mg IVP Q1H PRN; Protocol PRN Reason: CIWA >8 Metoprolol Tartrate (Lopressor Inj) 5 mg IVP Q6H PRN PRN Reason: Hypertensive Emergency Morphine Sulfate (Morphine (Carpuject)) 2 mg IVP Q2HR PRN PRN Reason: Pain 8 to 10 Ondansetron HCl (Zofran Inj) 4 mg IVP Q6HR PRN PRN Reason: Nausea / Vomiting Pantoprazole Sodium (Protonix) 40 mg IVP QDAC [facility] Last Admin: 07/21/19 06:16 Dose: 40 mg Phenol/Menthol (Chloraseptic) 2 sprays MM Q2HR PRN PRN Reason: Throat Pain Last Admin: 07/21/19 11:37 Dose: 2 sprays Sodium Chloride (Normal Saline Flush 0.9%) 10 ml IVP PRN PRN PRN Reason: NEEDED PER PROVIDER ORDERS Last Admin: 07/21/19 06:16 Dose: 10 ml Sodium Chloride (Normal Saline Flush 0.9%) 10 ml IVP 0100,0900,1700 [facility] Last Admin: 07/21/19 08:54 Dose: Not Given Aspirin [Aspirin EC] 81 mg PO DAILY 09/09/17 Atorvastatin [Lipitor] 10 mg PO DAILY 09/09/17 Calcium Carbonate/Vitamin D3 [Calcium 500-Vit D3 600 Caplet] 1 tab PO DAILY 09/09/17 Carvedilol Phosphate [Coreg Cr] 40 mg PO DAILY 09/09/17 Doxycycline Hyclate 50 mg PO DAILY 09/09/17 Krill Oil/Paron-3/Dha/Epa [Paron-3 Krill Oil Softgel] 1 cap PO DAILY 09/09/17 Lutein/Zeaxanthin [Ocuvite Lutein 25-5 mg Softgel] 1 cap PO DAILY 09/09/17 Ubidecarenone [Co Q-10] 300 mg PO DAILY 09/09/17 dilTIAZem HCl [Diltiazem 24Hr Cd] 300 mg PO DAILY 09/09/17 L. Acidophilus/L. Rhamnosus [Probiotic 15 Billion Cell Cap] 1 each PO DAILY 07/21/19 Lisinopril [Prinivil] 20 mg PO BID 07/21/19 Multivitamin,Therapeutic [Thera] 1 each PO DAILY 07/21/19
--- NOTE | 2019-07-21 15:57 | PROVIDER PROGRESS NOTE ---
Assessment/Plan - Problem List (1) Bowel obstruction Qualifiers: Intestinal obstruction type: unspecified Intestinal obstruction extent: unspecified extent Qualified Code(s): K56.609 - Unspecified intestinal obstruction, unspecified as to partial versus complete obstruction Assessment/Plan: Large bowel obstruction unresponsive to conservative therapy. / Exploratory laparotomy and possible bowel resection. - Current Meds Current Meds: Current Medications Generic Name Dose Route Start Last Admin Trade Name Freq PRN Reason Stop Dose Admin Enoxaparin Sodium 40 mg 07/21/19 09:00 07/21/19 11:40 Lovenox SUBQ Not Given DAILY BRO Multivitamins 10 ml/ Thiamine 1,011.2 mls @ 100 mls/hr 07/21/19 09:30 07/21/19 09:25 HCl 100 mg/ Folic Acid 1 mg/ IV 100 mls/hr Sodium Chloride DAILY BRO Administration Pantoprazole Sodium 40 mg 07/21/19 07:00 07/21/19 06:16 Protonix IVP 40 mg QDAC BRO Administration Phenol/Menthol 2 sprays 07/21/19 11:31 07/21/19 11:37 Chloraseptic MM 2 sprays Q2HR PRN Administration Throat Pain Sodium Chloride 10 ml 07/20/19 16:12 07/21/19 06:16 Normal Saline Flush 0.9% IVP 10 ml PRN PRN Administration NEEDED PER PROVIDER ORDERS Sodium Chloride 10 ml 07/21/19 01:00 07/21/19 08:54 Normal Saline Flush 0.9% IVP Not Given 0100,0900,1700 BRO - Lab Result Lab results reviewed: Yes Fish Bone Diagrams: 07/21/19 09:07 07/21/19 04:35 - EKG Results EKG Interpreted Independently: Yes - Diagnostic Imaging Results Diagnostic Imaging Results: Discussed with radiologist - Additional Planning Condition/Complexity: Critical My Orders: My Active Orders 07/20/19 16:54 Enema [RC] .ONCE Consult/Specialty: Hospitalist Plan Discussed with:: Patient, Spouse Time Spent: Greater than 60 minutes Subjective - Subjective Patient Reports: Constipation, Nausea Nursing Reports: Confused, Constipation, Vomitting Objective Vital Signs: Vital Signs - 24 hr 07/20/19 07/20/19 07/20/19 16:03 17:00 17:45 Temperature 36.3 C L Heart Rate 63 62 Heart Rate [ 60 Brachial] Respiratory 23 18 20 Rate Blood Pressure 136/79 H 133/75 H Blood Pressure 138/72 H [Right Brachial artery] O2 Saturation 92 91 L 93 07/20/19 07/21/19 07/21/19 23:52 04:19 08:00 Temperature 36.8 C 36.4 C L 36.3 C L Heart Rate Heart Rate [ 70 79 81 Brachial] Respiratory 18 20 22 Rate Blood Pressure Blood Pressure 133/65 H 150/79 H 146/73 H [Right Brachial artery] O2 Saturation 95 91 L 92 07/21/19 07/21/19 07/21/19 10:29 11:45 14:43 Temperature 37 C Heart Rate 83 Heart Rate [ 78 Brachial] Respiratory 14 22 Rate Blood Pressure Blood Pressure 133/68 H 186/102 H [Right Brachial artery] O2 Saturation 91 L 07/21/19 07/21/19 15:12 15:25 Temperature 37.0 C Heart Rate Heart Rate [ 95 Brachial] Respiratory 22 Rate Blood Pressure Blood Pressure 167/81 H 129/107 H [Right Brachial artery] O2 Saturation 91 L Oxygen O2 Source Nasal cannula I&O (Last 24 Hrs): Intake and Output Totals x24h 07/19/19 07/20/19 07/21/19 23:59 23:59 23:59 Intake Total 1000 2130 Output Total 125 1175 Balance 875 955 Neuro: Disoriented Cardiovascular: Regular rate Respiratory: No respiratory distress Abdomen: Other (Massive distention) - Results Results: Laboratory Results WBC 3.1 x10^3/uL (4.8-10.8) L 07/21/19 09:07 RBC 4.09 10^6/uL (4.70-6.10) L 07/21/19 09:07 Hgb 14.2 g/dL (14.0-18.0) 07/21/19 09:07 Hct 43.0 % (42.0-52.0) 07/21/19 09:07 MCV 105.1 fL (80.0-94.0) H 07/21/19 09:07 MCH 34.7 pg (27.0-31.0) H 07/21/19 09:07 MCHC 33.0 g/dL (32.0-36.0) 07/21/19 09:07 RDW 14.1 % (12.0-15.0) 07/21/19 09:07 Plt Count 176 10^3/uL (130-450) 07/21/19 09:07 MPV 10.1 fL (7.4-11.4) 07/21/19 09:07 Neut # (Auto) 1.7 10^3/uL (1.5-6.6) 07/21/19 09:07 Lymph # (Auto) 0.7 10^3/uL (1.5-3.5) L 07/21/19 09:07 [place] # (Auto) 0.7 10^3/uL (0.0-1.0) 07/21/19 09:07 Eos # (Auto) 0.0 10^3/uL (0.0-0.7) 07/21/19 09:07 Baso # (Auto) 0.0 10^3/uL (0.0-0.1) 07/21/19 09:07 Absolute Nucleated RBC 0.00 x10^3/uL 07/21/19 09:07 Total Counted 100 07/21/19 04:35 Band Neuts % (Manual) 27 % (0-10) H 07/21/19 04:35 Abnorm Lymph % (Manual) 0 % 07/21/19 04:35 Nucleated RBC % 0.0 /100WBC 07/21/19 09:07 Neutrophils # (Manual) 2.0 10^3/uL (1.5-6.6) 07/21/19 04:35 Lymphocytes # (Manual) 0.8 10^3/uL (1.5-3.5) L 07/21/19 04:35 Monocytes # (Manual) 0.5 10^3/uL (0.0-1.0) 07/21/19 04:35 Eosinophils # (Manual) 0.0 10^3/uL (0-0.7) 07/21/19 04:35 Basophils # (Manual) 0.0 10^3/uL (0-0.1) 07/21/19 04:35 Differential Comment MANUAL DIFFERENTIAL 07/21/19 04:35 Manual Slide Review Indicated 07/21/19 09:07 Platelet Estimate NORMAL (130-450,000) (NORMAL) 07/21/19 04:35 RBC Morph Micro Appear 2+ ANISOCYTOSIS (NORMAL) 07/21/19 09:07 PT 11.2 secs (9.9-12.6) 07/20/19 13:29 INR 1.0 (0.8-1.2) 07/20/19 13:29 Sodium 139 mmol/L (135-145) 07/21/19 04:35 Potassium 3.4 mmol/L (3.5-5.0) L 07/21/19 04:35 Chloride 103 mmol/L (101-111) 07/21/19 04:35 Carbon Dioxide 23 mmol/L (21-32) 07/21/19 04:35 Anion Gap 13.0 (6-13) 07/21/19 04:35 BUN 41 mg/dL (6-20) H 07/21/19 04:35 Creatinine 0.8 mg/dL (0.6-1.2) 07/21/19 04:35 Estimated GFR (MDRD) 92 (>89) 07/21/19 04:35 Glucose 122 mg/dL (70-100) H 07/21/19 04:35 Lactic Acid 1.2 mmol/L (0.5-2.2) 07/20/19 18:28 Calcium 8.5 mg/dL (8.5-10.3) 07/21/19 04:35 Magnesium 2.8 mg/dL (1.7-2.8) 07/21/19 04:35 Total Bilirubin 1.6 mg/dL (0.2-1.0) H 07/21/19 04:35 AST 47 IU/L (10-42) H 07/21/19 04:35 ALT 51 IU/L (10-60) 07/21/19 04:35 Alkaline Phosphatase 61 IU/L (42-121) 07/21/19 04:35 Total Protein 6.0 g/dL (6.7-8.2) L 07/21/19 04:35 Albumin 3.1 g/dL (3.2-5.5) L 07/21/19 04:35 Globulin 2.9 g/dL (2.1-4.2) 07/21/19 04:35 Albumin/Globulin Ratio 1.1 (1.0-2.2) 07/21/19 04:35 Lipase 26 U/L (22-51) 07/20/19 13:29 Urine Color DARK YELLOW 07/20/19 23:35 Urine Clarity CLEAR (CLEAR) 07/20/19 23:35 Urine pH 6.5 PH (5.0-7.5) 07/20/19 23:35 Ur Specific [place] <=1.005 (1.002-1.030) 07/20/19 23:35 Urine Protein TRACE mg/dL (NEGATIVE) 07/20/19 23:35 Urine Glucose (UA) NEGATIVE mg/dL (NEGATIVE) 07/20/19 23:35 Urine Ketones 15 mg/dL (NEGATIVE) H 07/20/19 23:35 Urine Occult Blood TRACE-INTA (NEGATIVE) 07/20/19 23:35 Urine Nitrite NEGATIVE (NEGATIVE) 07/20/19 23:35 Urine Bilirubin NEGATIVE (NEGATIVE) 07/20/19 23:35 Urine Urobilinogen 1 (NORMAL) E.U./dL (NORMAL) 07/20/19 23:35 Ur Leukocyte Esterase NEGATIVE (NEGATIVE) 07/20/19 23:35 Ur Microscopic Review NOT INDICATED 07/20/19 23:35 Urine Culture Comments NOT INDICATED 07/20/19 23:35 Ethyl Alcohol < 5.0 mg/dL 07/20/19 13:29 Sepsis Event Note (H) - Evaluation Current Stage of Sepsis: Ruled out ABX Reporting Has patient been on IV antibiotics over the past 48 hours?: No
[2019-07-21] MEDS ORDERED: SUCCINYLCHOLINE 200 MG/10 ML VIAL IVP ONE (17:00)
[2019-07-21] MEDS ORDERED: fentaNYL 250 MCG/5 ML VIAL IVP ONE (17:00)
[2019-07-21] MEDS ORDERED: MIDAZOLAM 2 MG/2 ML VIAL IVP ONE ×2 (17:00→21:18)
[2019-07-21] MEDS ORDERED: EPINEPHrine 1 MG/ML VIAL IVP ONE (17:00)
[2019-07-21] MEDS ORDERED: ROCURONIUM 50 MG/5 ML VIAL IVP ONE (17:00)
[2019-07-21] MEDS ORDERED: NEOSTIGMINE 1 MG/1 ML 10 ML MDV IVP ONE (17:00)
[2019-07-21] MEDS ORDERED: PROPOFOL 200 MG/20 ML VIAL IVP ONE (17:00)
--- NOTE | 2019-07-21 17:18 | ANESTHESIA ---
Pre-Anesthesia VS, & Labs - Diagnosis Diagnosis Possible large bowel obstruction - Procedure Exploratory laparotomy Vital Signs: Temp Pulse Resp BP Pulse Ox 37.0 C 95 22 139/87 H 91 L 07/21/19 15:12 07/21/19 15:12 07/21/19 15:12 07/21/19 16:12 07/21/19 15:12 Height 5 ft 9 in Weight (kg) 70.5 kg Body Mass Index 22.9 - NPO >8 hours, Other (bowel obstruction with NGT) - Lab Results Current Lab Results: Laboratory Tests 07/21/19 09:07: WBC 3.1 L, RBC 4.09 L, Hgb 14.2, Hct 43.0, MCV 105.1 H, MCH 34.7 H, MCHC 33.0, RDW 14.1, Plt Count 176, MPV 10.1, Neut # (Auto) 1.7, Lymph # (Auto) 0.7 L, [place] # (Auto) 0.7, Eos # (Auto) 0.0, Baso # (Auto) 0.0, Absolute Nucleated RBC 0.00, Nucleated RBC % 0.0, Manual Slide Review Indicated, RBC Morph Micro Appear 2+ ANISOCYTOSIS 07/21/19 04:35: Sodium 139, Potassium 3.4 L, Chloride 103, Carbon Dioxide 23, Anion Gap 13.0, BUN 41 H, Creatinine 0.8, Estimated GFR (MDRD) 92, Glucose 122 H , Calcium 8.5, Magnesium 2.8, Total Bilirubin 1.6 H, AST 47 H, ALT 51, Alkaline Phosphatase 61, Total Protein 6.0 L, Albumin 3.1 L, Globulin 2.9, Albumin/Globulin Ratio 1.1 07/21/19 04:35: WBC 3.3 L, RBC 4.01 L, Hgb 13.8 L, Hct 41.6 L, MCV 103.7 H, MCH 34.4 H, MCHC 33.2, RDW 14.1, Plt Count 166, MPV 9.8, Neut # (Auto) Not Reportable, Lymph # (Auto) Not Reportable, [place] # (Auto) Not Reportable, Eos # (Auto) Not Reportable, Baso # (Auto) Not Reportable, Absolute Nucleated RBC Not Reportable, Total Counted 100, Band Neuts % (Manual) 27 H, Abnorm Lymph % (Manual) 0, Nucleated RBC % Not Reportable, Neutrophils # (Manual) 2.0, Lymphocytes # (Manual) 0.8 L, Monocytes # (Manual) 0.5, Eosinophils # (Manual) 0.0, Basophils # (Manual) 0.0, Differential Comment MANUAL DIFFERENTIAL, Platelet Estimate NORMAL (130-450,000), RBC Morph Micro Appear NORMAL APPEARANCE 07/20/19 18:28: Lactic Acid 1.2 07/20/19 13:29: Lactic Acid 2.8 H 07/20/19 13:29: Sodium 136, Potassium 3.9, Chloride 96 L, Carbon Dioxide 27, Anion Gap 13.0, BUN 32 H, Creatinine 1.2, Estimated GFR (MDRD) 58 L, Glucose 169 H, Calcium 9.5, Total Bilirubin 1.7 H, AST 66 H, ALT 58, Alkaline Phosphatase 72, Total Protein 6.9, Albumin 3.7, Globulin 3.2, Albumin/Globulin Ratio 1.2, Lipase 26, Ethyl Alcohol < 5.0 07/20/19 13:29: PT 11.2, INR 1.0 07/20/19 13:29: WBC 8.6, RBC 4.31 L, Hgb 14.9, Hct 44.6, MCV 103.5 H, MCH 34.6 H , MCHC 33.4, RDW 13.8, Plt Count 191, MPV 9.9, Neut # (Auto) 6.1, Lymph # (Auto) 1.1 L, [place] # (Auto) 1.3 H, Eos # (Auto) 0.1, Baso # (Auto) 0.0, Absolute Nucleated RBC 0.00, Nucleated RBC % 0.0, Manual Slide Review Indicated, RBC Morph Micro Appear 1+ ANISOCYTOSIS Fish Bones: 07/21/19 09:07 07/21/19 04:35 Home Medications and Allergies Home Medications: Ambulatory Orders L. Acidophilus/L. Rhamnosus [Probiotic 15 Billion Cell Cap] 1 each PO DAILY 07/21/19 Lisinopril [Prinivil] 20 mg PO BID 07/21/19 Multivitamin,Therapeutic [Thera] 1 each PO DAILY 07/21/19 Active Medications Acetaminophen (Tylenol) 650 mg PO Q4HR PRN PRN Reason: Pain 1 to 4 Albuterol () 2.5 mg INH RTQ4H PRN PRN Reason: Wheezing Albuterol/Ipratropium (Duoneb) 3 ml INH RTQID PRN PRN Reason: Shortness of Air/Wheezing Enoxaparin Sodium (Lovenox) 40 mg SUBQ DAILY [facility] Last Admin: 07/21/19 11:40 Dose: Not Given Hydralazine HCl (Apresoline Inj) 10 mg IVP QID PRN PRN Reason: Hypertensive Emergency Multivitamins 10 ml/ Thiamine HCl 100 mg/ Folic Acid 1 mg/Sodium Chloride 1,011.2 mls @ 100 mls/hr IV DAILY [facility] Last Admin: 07/21/19 09:25 Dose: 100 mls/hr Potassium Chloride/Dextrose/Sod Cl (D5.45ns W/20 Meq Kcl) 1,000 mls @ 75 mls/hr IV .[id number] [facility] Lorazepam (Ativan Inj (Vial)) 1 mg IVP Q1H PRN; Protocol PRN Reason: CIWA >8 Metoprolol Tartrate (Lopressor Inj) 5 mg IVP Q6H PRN PRN Reason: Hypertensive Emergency Morphine Sulfate (Morphine (Carpuject)) 2 mg IVP Q2HR PRN PRN Reason: Pain 8 to 10 Ondansetron HCl (Zofran Inj) 4 mg IVP Q6HR PRN PRN Reason: Nausea / Vomiting Pantoprazole Sodium (Protonix) 40 mg IVP QDAC [facility] Last Admin: 07/21/19 06:16 Dose: 40 mg Phenol/Menthol (Chloraseptic) 2 sprays MM Q2HR PRN PRN Reason: Throat Pain Last Admin: 07/21/19 11:37 Dose: 2 sprays Sodium Chloride (Normal Saline Flush 0.9%) 10 ml IVP PRN PRN PRN Reason: NEEDED PER PROVIDER ORDERS Last Admin: 07/21/19 06:16 Dose: 10 ml Sodium Chloride (Normal Saline Flush 0.9%) 10 ml IVP 0100,0900,1700 [facility] Last Admin: 07/21/19 08:54 Dose: Not Given Aspirin [Aspirin EC] 81 mg PO DAILY 09/09/17 Atorvastatin [Lipitor] 10 mg PO DAILY 09/09/17 Calcium Carbonate/Vitamin D3 [Calcium 500-Vit D3 600 Caplet] 1 tab PO DAILY 12/28/17 Carvedilol Phosphate [Coreg Cr] 40 mg PO DAILY 09/09/17 Doxycycline Hyclate 50 mg PO DAILY 09/09/17 Krill Oil/Kaufman-3/Dha/Epa [Kaufman-3 Krill Oil Softgel] 1 cap PO DAILY 09/09/17 Lutein/Zeaxanthin [Ocuvite Lutein 25-5 mg Softgel] 1 cap PO DAILY 09/09/17 Ubidecarenone [Co Q-10] 300 mg PO DAILY 09/09/17 dilTIAZem HCl [Diltiazem 24Hr Cd] 300 mg PO DAILY 09/09/17 L. Acidophilus/L. Rhamnosus [Probiotic 15 Billion Cell Cap] 1 each PO DAILY 07/21/19 Lisinopril [Prinivil] 20 mg PO BID 07/21/19 Multivitamin,Therapeutic [Thera] 1 each PO DAILY 07/21/19 Allergies/Adverse Reactions: Allergies Allergy/AdvReac Type Severity Reaction Status Date / Time No Known Drug Allergies Allergy Verified 09/09/17 00:22 Anes History & Medical History - Medical History Cardiovascular: reports: Hypertension, High cholesterol, Coronary artery disease (Patient's reports he has never had history of CAD. Denies any testing or treatment for CAD.), Other (cardiomegaly on CXR) Pulmonary: reports: None Gastrointestinal: reports: Other (bowel obstruction) Urinary: reports: None Neuro: reports: Tremors, Other (Questionable alcohol withdrawl) Musculoskeletal: reports: None Endocrine/Autoimmune: reports: None Blood Disorders: reports: None Smoking Status: Never smoker Psychosocial: reports: Depression, Alcohol (Uses alcohol daily, 2 bottles of wine daily) - Surgical History Eyes Ears Nose Throat (EENT): Rhinoplasty Orthopedic: Arthroscopic surgery, Other (knee scope) Results - EKG Results EKG Comparison: Reviewed EKG (shows q waves in inferior leads.) Exam General: Alert, Cooperative, Mild distress Dental: Poor dentition Mouth Openin Fingerbreadth Neck Mobility: Reduced Mallampati classification: III Thyromental Distance: 4-6 cm Respiratory: Lungs clear, Normal breath sounds, Respiratory distress Cardiovascular: Regular rate, Normal S1, Normal S2, No murmurs Mental/Cognitive Status: Change from baseline Cognitive Status: Other (describe below) (change in mental status) Plan Anesthesia Type: General, Other (Possible central line, possible arterial line.) Consent for Procedure(s) Verified and Reviewed: Yes Code Status: Attempt Resuscitation ASA classification: 4-Incapacitating disease Is this case an emergency?: Yes
[2019-07-21] MEDS ORDERED: LACTATED RINGERS 1,000 ML IV ONE ×2 (17:35→19:05)
[2019-07-21] MEDS ORDERED: ENOXAPARIN 30 MG/0.3 ML SYRINGE SUBQ ONE ×2 (18:38→19:00)
[2019-07-21] MEDS ORDERED: PIPERACILLIN/TAZOBACTAM 3.375 GM in SODIUM CHLORIDE 0.9% MINIBAG 100 ML IV ONE (19:00)
--- NOTE | 2019-07-21 20:21 | OPERATIVE REPORT ---
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
[2019-07-21] MEDS ORDERED: PIPERACILLIN/TAZOBACTAM 3.375 GM in SODIUM CHLORIDE 0.9% MINIBAG 100 ML IV SCH (21:00)
[2019-07-21] MEDS ORDERED: SODIUM CHLORIDE 0.9% 1,000 ML IV ONE (21:15)
[2019-07-21] MEDS ORDERED: MIDAZOLAM 2 MG/2 ML VIAL ONE (21:17)
--- NOTE | 2019-07-21 21:22 | ANESTHESIA PROCEDURE NOTE ---
Diagnosis: s/p Exp. Laparotomy, total colectomy Procedure: Placement of triple lumen central line Consent for Procedure(s) Verified and Reviewed: Yes Height and Weight: Height 5 ft 9 in Weight (kg) 70.5 kg Body Mass Index 22.9 Vital Signs: Temp Pulse Resp BP Pulse Ox 37.0 C 95 22 139/87 H 91 L 07/21/19 15:12 07/21/19 15:12 07/21/19 15:12 07/21/19 16:12 07/21/19 15:12 Allergies No Known Drug Allergies Allergy (Verified 09/09/17 00:22) Requesting Provider: Bennett ASA classification: 4-Incapacitating disease Is this case an emergency?: Yes Anes. Monitoring and Equipment: Non-invasive BP, Pulse oximetery Anesth Central Line Template - Central Line Central Line Preparation: Consent Obtained, Time out completed, Ultrasound used, Sterile prep and drape Central line location: Right IJ Central line type: Triple lumen Central line catheter tip site resides: cavoatrial junction Central line aftercare: Chlorhexidine disc placed, Secured, No pneumothorax, No complications, Bundle checklist complete, Pt tolerated well
[2019-07-21] MEDS: PROPOFOL 1000 MG/100 ML 100 ML IV SCH (21:26)
[2019-07-21] MEDS ORDERED: PROPOFOL 1000 MG/100 ML 100 ML IV ONE (21:29)
[2019-07-21 21:44] LABS: BASOPHILS % (AUTO) 0.2 %; HGB - HEMOGLOBIN 11.4 g/dL (14.0-18.0); LYMPHOCYTES % (AUTO) 12.6 %; MEAN CORPUSCULAR HEMOGLOBIN 34.9 pg (27.0-31.0); MEAN CORPUSCULAR HGB CONC 32.8 g/dL (32.0-36.0); MEAN CORPUSCULAR VOLUME 106.4 fL (80.0-94.0); MEAN PLATELET VOLUME 9.6 fL (7.4-11.4); MONOCYTES % (AUTO) 16.8 %; NEUTROPHILS % (AUTO) 69.8 %; PLT - PLATELET COUNT 142 10^3/uL (130-450); RED BLOOD COUNT 3.27 10^6/uL (4.70-6.10); RED CELL DISTRIBUTION WIDTH 14.2 % (12.0-15.0); WHITE BLOOD COUNT 4.8 x10^3/uL (4.8-10.8)
[2019-07-21 21:48] LABS: ABNORMAL LYMPHS % (MANUAL) 0 %
[2019-07-21 21:50] LABS: CALCIUM 7.7 mg/dL (8.5-10.3); CREATININE 1.1 mg/dL (0.6-1.2)
[2019-07-21] MEDS: D5.45NS W/20 MEQ KCL 1,000 ML IV SCH (21:55)
[2019-07-21] MEDS: metroNIDAZOLE 500 MG/100 ML 500 MG/100 ML BAG IV SCH (22:00)
[2019-07-21] MEDS: SODIUM CHLORIDE 0.9% 500 ML IV PRN (22:01)
[2019-07-21] MEDS: MORPHINE 2 MG/ML CARPUJECT IVP PRN (22:02)
[2019-07-21] MEDS ORDERED: SODIUM CHLORIDE 0.9% 500 ML ONE (22:05)
[2019-07-21 22:13] LABS: BAND NEUTROPHILS % (MANUAL) 20 %; LYMPHOCYTES # (MANUAL) 1.2 10^3/uL (1.5-3.5); LYMPHOCYTES % (MANUAL) 25 %; MONOCYTES # (MANUAL) 0.7 10^3/uL (0.0-1.0)
[2019-07-21 22:16] LABS: DIFFERENTIAL COMMENT MANUAL DIFFERENTIAL; PLATELET ESTIMATE, MANUAL NORMAL (130-450,000) (NORMAL); PLATELET MORPHOLOGY NORMAL APPEARANCE (NORMAL)
--- NOTE | 2019-07-21 22:16 | XRAY Report ---
Reason: New PICC line Procedure Date: 07/21/2019 Accession Number: [id number] / [id number] Procedure: XR - Chest for Line Placement CPT Code: Final Report FULL RESULT: EXAM: CHEST RADIOGRAPHY EXAM DATE: 07/21/2019 09:39 PM. CLINICAL HISTORY: New PICC line. COMPARISON: CHEST 1 VIEW 07/21/2019 7:51 AM ABDOMEN 1 VIEW 07/21/2019 12:24 PM ABDOMEN/PELVIS W/ 07/20/2019 2:19 PM. TECHNIQUE: 1 view. FINDINGS: Lines/Tubes: Right IJ catheter tip in region of right atrium. Endotracheal tube tip located above the expected level of tracie. Tracie is not well seen. Enteric tube courses into stomach with tip not included on image. Lungs/Pleura: Bibasilar opacities. Suspect small left pleural effusion. No large pneumothorax. Probable skinfold along left lateral hemithorax. Mediastinum: Stable cardiomediastinal contours with enlargement of cardiac silhouette. Other: Lucency at region of right hemidiaphragm and suspected dilated bowel in the visualized upper abdomen. IMPRESSION: 1. Right IJ catheter tip projects in right atrium. 2. Endotracheal tube tip above tracie. 3. Enteric tube courses into stomach with tip not included on image. 4. Basilar opacities, possibly atelectasis or infiltrates, and suspected small left pleural effusion. 5. Probable skinfold along left lateral hemithorax. Recommend attention on follow-up imaging. 6. Lucency at region of right hemidiaphragm which could represent dilated bowel or free air. Left lateral decubitus view or CT can further assess as clinically indicated. [facility] The call report notification system was initiated by Dr. Nereyda Altman at 10:08 PM on 07/21/2019. The above call report findings were discussed with Dr. Wade by Dr. Nereyda Altman at 10:12 PM on 07/21/2019.
[2019-07-21] MEDS: LORazepam 2 MG/ML VIAL IVP PRN (22:20)
[2019-07-21] MEDS ORDERED: LORazepam 2 MG/ML VIAL IVP PRN (22:48)
[2019-07-21 23:46] LABS: ABG BASE EXCESS -5.1 mmol/L (-2.0-3.0); ABG HCO3 18.9 mmol/L (22.0-26.0); ABG OXYGEN SATURATION 99 % (94-98); ABG PCO2 32 mmHg (34-45); ABG PH 7.39 (7.35-7.45); ABG PO2 181 mmHg (80-100); ABG TCO2 19.8 MMOL/L (21.0-29.0)
[2019-07-21 23:47] LABS: ALLEN TEST POSITIVE
[2019-07-22] MEDS: SODIUM CHLORIDE FLUSH 0.9% 10 ML SYRINGE IVP SCH ×10 (01:05→23:34)
--- NOTE | 2019-07-22 01:32 | OPERATIVE REPORT ---
DATE OF SERVICE: 07/21/2019 Physician: Adis Guajardo DO PREOPERATIVE DIAGNOSIS: An 84-year-old white male with large bowel obstruction. 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 PROCEDURE 1. Total abdominal colectomy. 2. Kaz pouch. 3. End-ileostomy. SURGEON: Adis Guajardo DO DIRECTORY CARRIER SURGEON: Dr. Lyons ELEVATOR TECHNICIAN: Jossy Mack CRNA ANESTHESIA: General endotracheal tube. ESTIMATED BLOOD LOSS: 100 mL. URINE OUTPUT: 100 mL. IV FLUIDS: 1200 mL crystalloid. COMPLICATIONS: None. CONDITION: Improved upon transport to recovery, though still critical, as he is on a ventilator at this time. HISTORY: The patient is an 84-year-old white male admitted through the emergency department yesterday to the Hospitalist service with complaint of a 3- day history of constipation and abdominal swelling. At the time of examination, he had a protuberant abdomen with normal bowel tones and nontender. He was not showing signs of sepsis. Please see admitting lab report for other information. He proceeded to worsen throughout the day today, however, and conference with the radiologist in person revealed a large bowel obstruction, unknown etiology, and it was then decided to take him urgently to the operating room for exploratory laparotomy and possible bowel resection. Following informed consent with the patient and his , they were in agreement as to the plan of action. PROCEDURE IN DETAIL: The patient was taken to the operating room and under the above-mentioned anesthetic, prepped and draped in the usual sterile manner. A midline incision was utilized to gain entrance into the abdominal cavity. Once in the abdominal cavity, it was readily apparent that he had a toxic megacolon, and this had the faint smell of necrosis, and there was pneumatosis of the bowel wall as well. Discussion with Dr. Lyons at the time centered around whether or not after resection, he could tolerate an anastomosis, and we both felt that under the circumstances, it would be better not to anastomose; and the entire remainder of the colon and small bowel was examined, and a clinically palpable, likely adenocarcinoma at the rectosigmoid junction was palpated, and this necessitated our decision to do a total abdominal colectomy with a Kaz pouch. The resection included a large portion of the colonic mesentery, so as to capture as many lymph nodes as possible. The colon was resected using the JAMAR and the mesentery using the LigaSure device and eventually passed off the operative field as specimen. The terminal ileum was transected using the JAMAR and subsequently mobilized for eventual end-ileostomy construction. Once the abdomen was copiously irrigated and hemostasis was achieved, especially up near the splenic flexure where there was a slight oozing vessel, which was dealt with by electrocautery and Surgicel with direct pressure, a final look revealed no evidence for recurrent bleeding, and hemostasis was satisfactory. Once again, the abdomen was copiously irrigated with sterile saline solution and, after as much of this irrigant as possible was evacuated, and after a correct sponge and needle count was reported, the patient was prepared for closure. The fascia was closed from either end, meeting in the center using #1 double- stranded PDS suture. The skin margins were then joined with kirti. The ileostomy had previously been created and matured after the midline incision was closed and dressed. The ileostomy was matured in the standard Laurie ileostomy fashion, and an ileostomy custom-fit bag was applied. At this time, the patient was transported to the PACU in critical condition but improved from preoperative condition. TD: 07/21/2019 20:55 LAURY
[2019-07-22 01:44] LABS: ABG PCO2 35 mmHg (34-45); ABG PO2 73 mmHg (80-100)
[2019-07-22 01:45] LABS: ABG BASE EXCESS -2.8 mmol/L (-2.0-3.0); ABG HCO3 21.3 mmol/L (22.0-26.0); ABG OXYGEN SATURATION 95 % (94-98); ABG TCO2 22.4 MMOL/L (21.0-29.0); ALLEN TEST POSITIVE
[2019-07-22] MEDS: PROPOFOL 1000 MG/100 ML 100 ML IV SCH ×4 (03:29→20:22)
[2019-07-22 04:58] LABS: BASOPHILS % (AUTO) 0.5 %; HGB - HEMOGLOBIN 10.8 g/dL (14.0-18.0); LYMPHOCYTES % (AUTO) 9.1 %; MEAN CORPUSCULAR HEMOGLOBIN 34.6 pg (27.0-31.0); MEAN CORPUSCULAR VOLUME 104.8 fL (80.0-94.0); MEAN PLATELET VOLUME 9.7 fL (7.4-11.4); MONOCYTES % (AUTO) 15.8 %; NEUTROPHILS % (AUTO) 74.1 %; PLT - PLATELET COUNT 137 10^3/uL (130-450); RED BLOOD COUNT 3.12 10^6/uL (4.70-6.10); RED CELL DISTRIBUTION WIDTH 14.3 % (12.0-15.0); WHITE BLOOD COUNT 6.3 x10^3/uL (4.8-10.8)
[2019-07-22 05:05] LABS: ABNORMAL LYMPHS % (MANUAL) 0 %
[2019-07-22 05:06] LABS: ALBUMIN 2.2 g/dL (3.2-5.5); ALBUMIN/GLOBULIN RATIO 0.9 (1.0-2.2); BILIRUBIN,TOTAL 1.1 mg/dL (0.2-1.0); CALCIUM 7.5 mg/dL (8.5-10.3); CREATININE 1.1 mg/dL (0.6-1.2); TOTAL PROTEIN 4.6 g/dL (6.7-8.2)
[2019-07-22 05:20] LABS: BAND NEUTROPHILS % (MANUAL) 15 %; EOSINOPHILS # (MANUAL) 0.1 10^3/uL (0-0.7); LYMPHOCYTES # (MANUAL) 0.7 10^3/uL (1.5-3.5); LYMPHOCYTES % (MANUAL) 11 %; MONOCYTES # (MANUAL) 0.8 10^3/uL (0.0-1.0)
[2019-07-22 05:21] LABS: PLATELET MORPHOLOGY NORMAL APPEARANCE (NORMAL); RBC MORPHOLOGY (MULTIPLE) NORMAL APPEARANCE (NORMAL)
[2019-07-22 05:22] LABS: DIFFERENTIAL COMMENT MANUAL DIFFERENTIAL; PLATELET ESTIMATE, MANUAL NORMAL (130-450,000) (NORMAL)
[2019-07-22] MEDS: metroNIDAZOLE 500 MG/100 ML 500 MG/100 ML BAG IV SCH ×3 (05:59→22:04)
[2019-07-22] MEDS: D5.45NS W/20 MEQ KCL 1,000 ML IV SCH ×2 (06:11→16:15)
[2019-07-22] MEDS ORDERED: PIPERACILLIN/TAZOBACTAM 3.375 GM in SODIUM CHLORIDE 0.9% MINIBAG 100 ML IV SCH (07:00)
[2019-07-22] MEDS: SODIUM CHLORIDE FLUSH 0.9% 10 ML SYRINGE IVP PRN ×4 (07:05→22:03)
[2019-07-22 07:12] LABS: VBG PH 7.425 (7.31-7.41)
[2019-07-22] MEDS: PANTOPRAZOLE 40 MG VIAL IVP SCH (07:14)
[2019-07-22] MEDS: POTASSIUM CHLOR 20 MEQ/100 ML 20 MEQ/100 ML BAG IV SCH ×2 (07:40→08:40)
[2019-07-22] MEDS: MORPHINE 2 MG/ML CARPUJECT IVP PRN ×3 (08:04→20:25)
--- NOTE | 2019-07-22 08:24 | PROVIDER PROGRESS NOTE ---
Assessment/Plan - Problem List (1) Bowel obstruction Qualifiers: Intestinal obstruction extent: unspecified extent Qualified Code(s): K56.609 - Unspecified intestinal obstruction, unspecified as to partial versus complete obstruction Assessment/Plan: He did not have relief of obstruction with conservative management of bowel rest, ng decompression and enemas. 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 The tumor and mesentary containing nodes were removed surgically. He is now in the ICU, ng decompression continues. Pathology report pending. 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 Pathology report is pending. He is on iv Zosyn and iv Flagyl. (3) S/P total colectomy Assessment/Plan: As above in #2 (4) On mechanically assisted ventilation Assessment/Plan: He came out of surgery intubated and sedated on Propofol. Will add Versed for alcohol withdrawal, which started yesterday. Continue Versed for at least 24 hours. Will therefore continue ventilator today, no weaning. (5) Dehydration Assessment/Plan: He has had poor liquid intake for the 3 days he was distended, and now 2 days NPO here. His BUM/creat ratio has been elevated since admission. Continue iv hydration with NS and Banana Bag. Follow BMP daily. (6) Hypokalemia Assessment/Plan: Replace with ICU protocol. Follow BMP daily. (7) Alcohol abuse Assessment/Plan: His AST is > ALT and the had reported to the last provider, by phone, after he was here a day, that the patient drinks daily and heavily. Yesterday, after being here 1 day, he was more confused and the impression tgerefore was that he was starting to go through alcohol withdrawal. A banana bag was ordered and CIWA protocol with prn iv Ativan. Now he is sedated on Propofol and cannot assess a CIWA score. Will add Versed drip for alcohol withdrawal, which started yesterday. Continue Versed for at least 24 hours. Will therefore continue ventilator today, no weaning. Continue iv Banana Bag (8) Anemia Assessment/Plan: Multifactorial: hemodilutional, from EBL in the OR and from pre-hospitalization alcohol abuse and associated nutritional deficiencies. Continue iv vitamins. Follow CBC daily, transfuse if Hgb <7. (9) HTN (hypertension) Assessment/Plan: He was hypotensive post-op, but responded to 1L fluid bolus. His po meds are on hold. Prn Hydralazine or Lopressor - Current Meds Current Meds: Current Medications Generic Name Dose Route Start Last Admin Trade Name Freq PRN Reason Stop Dose Admin Enoxaparin Sodium 40 mg 07/21/19 09:00 07/21/19 11:40 Lovenox SUBQ Not Given DAILY BRO Multivitamins 10 ml/ Thiamine 1,011.2 mls @ 100 mls/hr 07/21/19 09:30 07/21/19 20:00 HCl 100 mg/ Folic Acid 1 mg/ IV Infused Sodium Chloride DAILY BRO Infusion Potassium Chloride/Dextrose/Sod Cl 1,000 mls @ 75 mls/hr 07/21/19 14:24 07/22/19 07:00 D5.45ns W/20 Meq Kcl IV 75 mls/hr .[id number] BRO Infusion Metronidazole 500 mg in 100 mls @ 100 mls/hr 07/21/19 22:00 07/22/19 07:00 Flagyl 500 Mg/100 Ml IV Infused Q8HR BRO Infusion Propofol 100 mls @ 4.23 mls/hr 07/21/19 22:00 07/22/19 07:00 Diprivan IV 40 mcg/kg/min .[id number] BRO 16.92 mls/hr Titration Protocol 10 MCG/KG/MIN Norepinephrine Bitartrate 8 mg 250 mls @ 15 mls/hr 07/21/19 22:00 07/22/19 01:07 / Dextrose IV Not Given .[id number] BRO Protocol 8 MCG/MIN Sodium Chloride 500 mls @ 0 mls/hr 07/21/19 21:49 07/21/19 22:01 Normal Saline 0.9% IV 20 mls/hr Q24H PRN Administration TKO RATE TKO Potassium Chloride 20 meq in 100 mls @ 100 mls/hr 07/22/19 08:00 07/22/19 07:40 Potassium Chloride IV 07/22/19 09:59 100 mls/hr Q1H BRO Administration Lorazepam 1 mg 07/21/19 08:48 07/21/19 22:20 Ativan Inj (Vial) IVP 1 mg Q1H PRN Administration CIWA >8 Protocol Morphine Sulfate 2 mg 07/20/19 16:12 07/22/19 08:04 Morphine (Carpuject) IVP 2 mg Q2HR PRN Administration Pain 8 to 10 Pantoprazole Sodium 40 mg 07/22/19 07:00 07/22/19 07:14 Protonix IVP 40 mg QDAC BRO Administration Phenol/Menthol 2 sprays 07/21/19 11:31 07/21/19 11:37 Chloraseptic MM 2 sprays Q2HR PRN Administration Throat Pain Sodium Chloride 10 ml 07/20/19 16:12 07/21/19 22:21 Normal Saline Flush 0.9% IVP 60 ml PRN PRN Administration NEEDED PER PROVIDER ORDERS Sodium Chloride 10 ml 07/21/19 01:00 07/22/19 04:19 Normal Saline Flush 0.9% IVP 10 ml 0100,0900,1700 BRO Administration Sodium Chloride 10 ml 07/22/19 01:00 07/22/19 07:05 Normal Saline Flush 0.9% IVP 10 ml 0100,0900,1700 BRO Administration Sodium Chloride 10 ml 07/21/19 21:06 07/22/19 07:15 Normal Saline Flush 0.9% IVP 10 ml PRN PRN Administration NEEDED PER PROVIDER ORDERS Sodium Chloride 20 ml 07/21/19 21:49 07/22/19 07:05 Normal Saline Flush 0.9% IVP 20 ml PRN PRN Administration After Blood Draw - Lab Result Fish Bone Diagrams: 07/25/19 04:15 07/25/19 04:15 Objective Vital Signs: Vital Signs - 24 hr 07/21/19 07/21/19 07/21/19 10:29 11:45 14:43 Temperature 37 C Heart Rate 83 Heart Rate [ 78 Brachial] Heart Rate [ Monitoring electrodes] Respiratory 14 22 Rate Blood Pressure 186/102 H [Left Brachial artery] Blood Pressure 133/68 H [Right Brachial artery] O2 Saturation 91 L 07/21/19 07/21/19 07/21/19 15:12 15:25 16:12 Temperature 37.0 C Heart Rate Heart Rate [ 95 Brachial] Heart Rate [ Monitoring electrodes] Respiratory 22 Rate Blood Pressure 167/81 H 129/107 H [Left Brachial artery] Blood Pressure 139/87 H [Right Brachial artery] O2 Saturation 91 L 07/21/19 07/21/19 07/21/19 21:07 21:10 21:15 Temperature Heart Rate Heart Rate [ 84 82 80 Brachial] Heart Rate [ Monitoring electrodes] Respiratory 20 22 22 Rate Blood Pressure [Left Brachial artery] Blood Pressure 120/60 110/59 L 111/62 [Right Brachial artery] O2 Saturation 96 94 98 07/21/19 07/21/19 07/21/19 21:19 21:20 21:23 Temperature Heart Rate 79 Heart Rate [ 81 81 Brachial] Heart Rate [ Monitoring electrodes] Respiratory 19 20 Rate Blood Pressure 111/62 [Left Brachial artery] Blood Pressure 113/63 [Right Brachial artery] O2 Saturation 98 96 07/21/19 07/21/19 07/21/19 21:25 21:30 21:35 Temperature Heart Rate Heart Rate [ 80 80 79 Brachial] Heart Rate [ Monitoring electrodes] Respiratory 20 20 22 Rate Blood Pressure [Left Brachial artery] Blood Pressure 116/68 112/60 116/63 [Right Brachial artery] O2 Saturation 98 96 100 07/21/19 07/21/19 07/21/19 21:40 21:45 21:50 Temperature Heart Rate Heart Rate [ 79 79 81 Brachial] Heart Rate [ Monitoring electrodes] Respiratory 25 H 21 20 Rate Blood Pressure [Left Brachial artery] Blood Pressure 127/65 117/68 120/73 [Right Brachial artery] O2 Saturation 99 98 100 07/21/19 07/21/19 07/21/19 21:55 22:00 22:05 Temperature Heart Rate Heart Rate [ 80 81 80 Brachial] Heart Rate [ Monitoring electrodes] Respiratory 21 26 H 20 Rate Blood Pressure [Left Brachial artery] Blood Pressure 123/81 H 124/70 126/68 [Right Brachial artery] O2 Saturation 100 100 07/21/19 07/21/19 07/21/19 22:10 22:15 22:23 Temperature Heart Rate Heart Rate [ 81 81 79 Brachial] Heart Rate [ Monitoring electrodes] Respiratory 21 19 16 Rate Blood Pressure [Left Brachial artery] Blood Pressure 97/82 H 131/65 H 126/66 [Right Brachial artery] O2 Saturation 100 100 100 07/21/19 07/21/19 07/21/19 22:25 22:30 22:35 Temperature Heart Rate Heart Rate [ 77 75 73 Brachial] Heart Rate [ Monitoring electrodes] Respiratory 18 19 18 Rate Blood Pressure [Left Brachial artery] Blood Pressure 116/64 106/57 L 100/59 L [Right Brachial artery] O2 Saturation 100 100 100 07/21/19 07/21/19 07/21/19 22:40 22:45 22:50 Temperature Heart Rate Heart Rate [ 74 73 71 Brachial] Heart Rate [ Monitoring electrodes] Respiratory 18 18 19 Rate Blood Pressure [Left Brachial artery] Blood Pressure 110/60 111/44 L 90/53 L [Right Brachial artery] O2 Saturation 100 100 100 07/21/19 07/21/19 07/22/19 23:00 23:52 00:00 Temperature Heart Rate 72 Heart Rate [ Brachial] Heart Rate [ 77 71 Monitoring electrodes] Respiratory 18 20 Rate Blood Pressure [Left Brachial artery] Blood Pressure 122/67 96/55 L [Right Brachial artery] O2 Saturation 99 95 07/22/19 07/22/19 07/22/19 01:00 01:21 02:00 Temperature Heart Rate 71 Heart Rate [ Brachial] Heart Rate [ 71 72 Monitoring electrodes] Respiratory 21 20 Rate Blood Pressure [Left Brachial artery] Blood Pressure 106/58 L 115/65 [Right Brachial artery] O2 Saturation 95 96 07/22/19 07/22/19 07/22/19 03:00 03:21 04:00 Temperature 36.3 C L Heart Rate 72 Heart Rate [ Brachial] Heart Rate [ 72 60 Monitoring electrodes] Respiratory 20 23 Rate Blood Pressure [Left Brachial artery] Blood Pressure 105/57 L 116/66 [Right Brachial artery] O2 Saturation 97 97 07/22/19 07/22/19 07/22/19 05:00 05:12 06:00 Temperature Heart Rate 76 Heart Rate [ Brachial] Heart Rate [ 77 77 Monitoring electrodes] Respiratory 22 23 Rate Blood Pressure [Left Brachial artery] Blood Pressure 117/59 L 143/59 H [Right Brachial artery] O2 Saturation 98 97 07/22/19 07/22/19 07/22/19 07:00 07:45 08:00 Temperature 36.6 C Heart Rate 84 Heart Rate [ Brachial] Heart Rate [ 73 85 Monitoring electrodes] Respiratory 16 25 H Rate Blood Pressure 130/67 [Left Brachial artery] Blood Pressure 153/88 H [Right Brachial artery] O2 Saturation 97 97 Oxygen O2 Source Mechanical ventilator I&O (Last 24 Hrs): Intake and Output Totals x24h 07/20/19 07/21/19 07/22/19 23:59 23:59 23:59 Intake Total 1000 4299.752 1055.200 Output Total 125 1575 343 Balance 875 2724.752 712.200 General: Other (Sedated) HEENT: Mucous membr. moist/pink, Other (ET tube and ng tube in place) Neuro: Other (sedated) Cardiovascular: Regular rate, No murmurs Respiratory: Breath sounds nml Abdomen: Other (Bandaged) Extremities: No edema - Results Results: Laboratory Results WBC 6.3 x10^3/uL (4.8-10.8) 07/22/19 04:35 RBC 3.12 10^6/uL (4.70-6.10) L 07/22/19 04:35 Hgb 10.8 g/dL (14.0-18.0) L 07/22/19 04:35 Hct 32.7 % (42.0-52.0) L 07/22/19 04:35 MCV 104.8 fL (80.0-94.0) H 07/22/19 04:35 MCH 34.6 pg (27.0-31.0) H 07/22/19 04:35 MCHC 33.0 g/dL (32.0-36.0) 07/22/19 04:35 RDW 14.3 % (12.0-15.0) 07/22/19 04:35 Plt Count 137 10^3/uL (130-450) 07/22/19 04:35 MPV 9.7 fL (7.4-11.4) 07/22/19 04:35 Neut # (Auto) Not Reportable 07/22/19 04:35 Lymph # (Auto) Not Reportable 07/22/19 04:35 [place] # (Auto) Not Reportable 07/22/19 04:35 Eos # (Auto) Not Reportable 07/22/19 04:35 Baso # (Auto) Not Reportable 07/22/19 04:35 Absolute Nucleated RBC Not Reportable 07/22/19 04:35 Total Counted 100 07/22/19 04:35 Band Neuts % (Manual) 15 % (0-10) H 07/22/19 04:35 Abnorm Lymph % (Manual) 0 % 07/22/19 04:35 Nucleated RBC % Not Reportable 07/22/19 04:35 Neutrophils # (Manual) 4.8 10^3/uL (1.5-6.6) 07/22/19 04:35 Lymphocytes # (Manual) 0.7 10^3/uL (1.5-3.5) L 07/22/19 04:35 Monocytes # (Manual) 0.8 10^3/uL (0.0-1.0) 07/22/19 04:35 Eosinophils # (Manual) 0.1 10^3/uL (0-0.7) 07/22/19 04:35 Basophils # (Manual) 0.0 10^3/uL (0-0.1) 07/22/19 04:35 Differential Comment MANUAL DIFFERENTIAL 07/22/19 04:35 Manual Slide Review Indicated 07/21/19 21:36 WBC Morphology NORMAL APPEARANCE (NORMAL) 07/22/19 04:35 Platelet Estimate NORMAL (130-450,000) (NORMAL) 07/22/19 04:35 Platelet Morphology NORMAL APPEARANCE (NORMAL) 07/22/19 04:35 RBC Morph Micro Appear 1+ ANISOCYTOSIS (NORMAL) 1+ OVALOCYTES (NORMAL) 07/21/19 21:36 RBC Morph Micro Appear NORMAL APPEARANCE (NORMAL) 07/22/19 04:35 PT 11.2 secs (9.9-12.6) 07/20/19 13:29 INR 1.0 (0.8-1.2) 07/20/19 13:29 Bld Gas Analysis Time 0141 07/22/19 01:37 Sample Site RIGHT RADIAL 07/22/19 01:37 ABG pH 7.40 (7.35-7.45) 07/22/19 01:37 ABG pCO2 35 mmHg (34-45) 07/22/19 01:37 ABG pO2 73 mmHg (80-100) L 07/22/19 01:37 ABG HCO3 21.3 mmol/L (22.0-26.0) L 07/22/19 01:37 ABG Total CO2 22.4 MMOL/L (21.0-29.0) 07/22/19 01:37 ABG O2 Saturation 95 % (94-98) 07/22/19 01:37 ABG Base Excess -2.8 mmol/L (-2.0-3.0) L 07/22/19 01:37 Horacio Test POSITIVE 07/22/19 01:37 VBG pH 7.425 (7.31-7.41) H 07/22/19 07:00 Ionized Calcium 1.03 mmol/L (1.15-1.33) L 07/22/19 07:00 Respiration Rate 12 b/min 07/22/19 01:37 Vent Mode SIMV 07/22/19 01:37 FiO2 50.00 07/22/19 01:37 Tidal Volume 500 mL 07/22/19 01:37 PEEP 5 cmH2O 07/22/19 01:37 Pressure Support Vent 10 cmH2O 07/22/19 01:37 Sodium 140 mmol/L (135-145) 07/22/19 04:35 Potassium 3.3 mmol/L (3.5-5.0) L 07/22/19 04:35 Chloride 109 mmol/L (101-111) 07/22/19 04:35 Carbon Dioxide 22 mmol/L (21-32) 07/22/19 04:35 Anion Gap 9.0 (6-13) 07/22/19 04:35 BUN 53 mg/dL (6-20) H 07/22/19 04:35 Creatinine 1.1 mg/dL (0.6-1.2) 07/22/19 04:35 Estimated GFR (MDRD) 64 (>89) L 07/22/19 04:35 Glucose 212 mg/dL (70-100) H 07/22/19 04:35 POC Whole Bld Glucose 205 mg/dL (70 - 100) H 07/22/19 05:57 Lactic Acid 1.4 mmol/L (0.5-2.2) 07/21/19 21:36 Calcium 7.5 mg/dL (8.5-10.3) L 07/22/19 04:35 Magnesium 2.8 mg/dL (1.7-2.8) 07/21/19 04:35 Total Bilirubin 1.1 mg/dL (0.2-1.0) H 07/22/19 04:35 AST 55 IU/L (10-42) H 07/22/19 04:35 ALT 59 IU/L (10-60) 07/22/19 04:35 Alkaline Phosphatase 49 IU/L (42-121) 07/22/19 04:35 Total Protein 4.6 g/dL (6.7-8.2) L 07/22/19 04:35 Albumin 2.2 g/dL (3.2-5.5) L 07/22/19 04:35 Globulin 2.4 g/dL (2.1-4.2) 07/22/19 04:35 Albumin/Globulin Ratio 0.9 (1.0-2.2) L 07/22/19 04:35 Amylase 19 U/L (28-100) L 07/22/19 04:35 Lipase 26 U/L (22-51) 07/20/19 13:29 Urine Color DARK YELLOW 07/20/19 23:35 Urine Clarity CLEAR (CLEAR) 07/20/19 23:35 Urine pH 6.5 PH (5.0-7.5) 07/20/19 23:35 Ur Specific [place] <=1.005 (1.002-1.030) 07/20/19 23:35 Urine Protein TRACE mg/dL (NEGATIVE) 07/20/19 23:35 Urine Glucose (UA) NEGATIVE mg/dL (NEGATIVE) 07/20/19 23:35 Urine Ketones 15 mg/dL (NEGATIVE) H 07/20/19 23:35 Urine Occult Blood TRACE-INTA (NEGATIVE) 07/20/19 23:35 Urine Nitrite NEGATIVE (NEGATIVE) 07/20/19 23:35 Urine Bilirubin NEGATIVE (NEGATIVE) 07/20/19 23:35 Urine Urobilinogen 1 (NORMAL) E.U./dL (NORMAL) 07/20/19 23:35 Ur Leukocyte Esterase NEGATIVE (NEGATIVE) 07/20/19 23:35 Ur Microscopic Review NOT INDICATED 07/20/19 23:35 Urine Culture Comments NOT INDICATED 07/20/19 23:35 Nasal Screen MRSA (PCR) NEGATIVE (NEGATIVE) 07/21/19 21:00 Ethyl Alcohol < 5.0 mg/dL 07/20/19 13:29 Sepsis Event Note (H) - Evaluation Current Stage of Sepsis: Ruled out
[2019-07-22] MEDS ORDERED: SODIUM CHLORIDE 0.9% 500 ML IV PRN (08:25)
[2019-07-22] MEDS: PIPERACILLIN/TAZOBACTAM 3.375 GM in SODIUM CHLORIDE 0.9% MINIBAG 100 ML IV SCH ×2 (08:48→16:25)
--- NOTE | 2019-07-22 08:55 | PROVIDER PROGRESS NOTE ---
Subjective - General Admit Date: 07/20/19 Procedure Date: 07/21/19 Post Op Days: 1 Procedure Performed: Exploratory Laparotomy with total abdominal colectomy and Dang's pouch - Review of Systems Wound/Incisions: positive: Dressing dry and intact, Other (Ostomy is pink and viable. No output) - Other Other Information/Narrative: Patient sedated and mechanically ventilated. Appears comfortable. No pressors required to maintain MAP. Objective - Patient Data Reviewed Vital Signs: Yes Vital Signs: Vital Signs x48h Temp Pulse Pulse Resp BP BP Pulse Ox 07/22/19 08:00 36.6 C 85 25 H 130/67 97 07/22/19 07:45 84 07/22/19 07:00 73 16 153/88 H 97 07/22/19 06:00 77 23 143/59 H 97 07/22/19 05:12 76 07/22/19 05:00 77 22 117/59 L 98 07/22/19 04:00 36.3 C L 60 23 116/66 97 07/22/19 03:21 72 07/22/19 03:00 72 20 105/57 L 97 07/22/19 02:00 72 20 115/65 96 07/22/19 01:21 71 07/22/19 01:00 71 21 106/58 L 95 Weight: Weight 07/20/19 07/21/19 07/22/19 23:59 23:59 23:59 Weight (kg) 70.5 kg 70.5 kg 74.5 kg Intake & Output: Intake and Output Totals x24h 07/20/19 07/21/19 07/22/19 23:59 23:59 23:59 Intake Total 1000 4299.752 1530.365 Output Total 125 1575 343 Balance 875 2724.752 1187.365 - Lab Results Lab Results: 07/22/19 04:35 07/22/19 04:35 Other Lab Results: Lab Results x24hrs 07/22/19 07/22/19 07/22/19 Range/Units 07:00 05:57 04:35 WBC (4.8-10.8) x10^3/uL RBC (4.70-6.10) 10^6/uL Hgb (14.0-18.0) g/dL Hct (42.0-52.0) % MCV (80.0-94.0) fL MCH (27.0-31.0) pg MCHC (32.0-36.0) g/dL RDW (12.0-15.0) % Plt Count (130-450) 10^3/uL MPV (7.4-11.4) fL Neut # (Auto) (1.5-6.6) 10^3/uL Lymph # (Auto) (1.5-3.5) 10^3/uL [place] # (Auto) (0.0-1.0) 10^3/uL Eos # (Auto) (0.0-0.7) 10^3/uL Baso # (Auto) (0.0-0.1) 10^3/uL Absolute Nucleated RBC x10^3/uL Total Counted Band Neuts % (Manual) (0 - 10) % Abnorm Lymph % (Manual) % Nucleated RBC % /100WBC Neutrophils # (Manual) (1.5-6.6) 10^3/uL Lymphocytes # (Manual) (1.5-3.5) 10^3/uL Monocytes # (Manual) (0.0-1.0) 10^3/uL Eosinophils # (Manual) (0-0.7) 10^3/uL Basophils # (Manual) (0-0.1) 10^3/uL Differential Comment Manual Slide Review WBC Morphology (NORMAL) Platelet Estimate (NORMAL) Platelet Morphology (NORMAL) RBC Morph Micro Appear (NORMAL) Bld Gas Analysis Time Sample Site ABG pH (7.35-7.45) ABG pCO2 (34-45) mmHg ABG pO2 (80-100) mmHg ABG HCO3 (22.0-26.0) mmol/L ABG Total CO2 (21.0-29.0) MMOL/L ABG O2 Saturation (94-98) % ABG Base Excess (-2.0-3.0) mmol/L Horacio Test VBG pH 7.425 H (7.31-7.41) Ionized Calcium 1.03 L (1.15-1.33) mmol/L Respiration Rate b/min Vent Mode FiO2 Tidal Volume mL PEEP cmH2O Pressure Support Vent cmH2O Sodium 140 (135-145) mmol/L Potassium 3.3 L (3.5-5.0) mmol/L Chloride 109 (101-111) mmol/L Carbon Dioxide 22 (21-32) mmol/L Anion Gap 9.0 (6-13) BUN 53 H (6-20) mg/dL Creatinine 1.1 (0.6-1.2) mg/dL Estimated GFR (MDRD) 64 L (>89) Glucose 212 H (70-100) mg/dL POC Whole Bld Glucose 205 H (70 - 100) mg/dL Lactic Acid (0.5-2.2) mmol/L Calcium 7.5 L (8.5-10.3) mg/dL Total Bilirubin 1.1 H (0.2-1.0) mg/dL AST 55 H (10-42) IU/L ALT 59 (10-60) IU/L Alkaline Phosphatase 49 (42-121) IU/L Total Protein 4.6 L (6.7-8.2) g/dL Albumin 2.2 L (3.2-5.5) g/dL Globulin 2.4 (2.1-4.2) g/dL Albumin/Globulin Ratio 0.9 L (1.0-2.2) Amylase 19 L (28-100) U/L Nasal Screen MRSA (PCR) (NEGATIVE) 07/22/19 07/22/19 07/21/19 Range/Units 04:35 01:37 23:42 WBC 6.3 (4.8-10.8) x10^3/uL RBC 3.12 L (4.70-6.10) 10^6/uL Hgb 10.8 L (14.0-18.0) g/dL Hct 32.7 L (42.0-52.0) % MCV 104.8 H (80.0-94.0) fL MCH 34.6 H (27.0-31.0) pg MCHC 33.0 (32.0-36.0) g/dL RDW 14.3 (12.0-15.0) % Plt Count 137 (130-450) 10^3/uL MPV 9.7 (7.4-11.4) fL Neut # (Auto) Not Reportable (1.5-6.6) 10^3/uL Lymph # (Auto) Not Reportable (1.5-3.5) 10^3/uL [place] # (Auto) Not Reportable (0.0-1.0) 10^3/uL Eos # (Auto) Not Reportable (0.0-0.7) 10^3/uL Baso # (Auto) Not Reportable (0.0-0.1) 10^3/uL Absolute Nucleated RBC Not Reportable x10^3/uL Total Counted 100 Band Neuts % (Manual) 15 H (0 - 10) % Abnorm Lymph % (Manual) 0 % Nucleated RBC % Not Reportable /100WBC Neutrophils # (Manual) 4.8 (1.5-6.6) 10^3/uL Lymphocytes # (Manual) 0.7 L (1.5-3.5) 10^3/uL Monocytes # (Manual) 0.8 (0.0-1.0) 10^3/uL Eosinophils # (Manual) 0.1 (0-0.7) 10^3/uL Basophils # (Manual) 0.0 (0-0.1) 10^3/uL Differential Comment MANUAL DIFFERENTIAL Manual Slide Review WBC Morphology NORMAL APPEARANCE (NORMAL) Platelet Estimate NORMAL (130-450,000) (NORMAL) Platelet Morphology NORMAL APPEARANCE (NORMAL) RBC Morph Micro Appear NORMAL APPEARANCE (NORMAL) Bld Gas Analysis Time 0141 Sample Site RIGHT RADIAL ABG pH 7.40 (7.35-7.45) ABG pCO2 35 (34-45) mmHg ABG pO2 73 L (80-100) mmHg ABG HCO3 21.3 L (22.0-26.0) mmol/L ABG Total CO2 22.4 (21.0-29.0) MMOL/L ABG O2 Saturation 95 (94-98) % ABG Base Excess -2.8 L (-2.0-3.0) mmol/L Horacio Test POSITIVE VBG pH (7.31-7.41) Ionized Calcium (1.15-1.33) mmol/L Respiration Rate 12 b/min Vent Mode SIMV FiO2 50.00 Tidal Volume 500 mL PEEP 5 cmH2O Pressure Support Vent 10 cmH2O Sodium (135-145) mmol/L Potassium (3.5-5.0) mmol/L Chloride (101-111) mmol/L Carbon Dioxide (21-32) mmol/L Anion Gap (6-13) BUN (6-20) mg/dL Creatinine (0.6-1.2) mg/dL Estimated GFR (MDRD) (>89) Glucose (70-100) mg/dL POC Whole Bld Glucose 141 H (70 - 100) mg/dL Lactic Acid (0.5-2.2) mmol/L Calcium (8.5-10.3) mg/dL Total Bilirubin (0.2-1.0) mg/dL AST (10-42) IU/L ALT (10-60) IU/L Alkaline Phosphatase (42-121) IU/L Total Protein (6.7-8.2) g/dL Albumin (3.2-5.5) g/dL Globulin (2.1-4.2) g/dL Albumin/Globulin Ratio (1.0-2.2) Amylase (28-100) U/L Nasal Screen MRSA (PCR) (NEGATIVE) 07/21/19 07/21/19 07/21/19 Range/Units 23:37 21:36 21:36 WBC 4.8 (4.8-10.8) x10^3/uL RBC 3.27 L (4.70-6.10) 10^6/uL Hgb 11.4 L (14.0-18.0) g/dL Hct 34.8 L (42.0-52.0) % MCV 106.4 H (80.0-94.0) fL MCH 34.9 H (27.0-31.0) pg MCHC 32.8 (32.0-36.0) g/dL RDW 14.2 (12.0-15.0) % Plt Count 142 (130-450) 10^3/uL MPV 9.6 (7.4-11.4) fL Neut # (Auto) Not Reportable (1.5-6.6) 10^3/uL Lymph # (Auto) Not Reportable (1.5-3.5) 10^3/uL [place] # (Auto) Not Reportable (0.0-1.0) 10^3/uL Eos # (Auto) Not Reportable (0.0-0.7) 10^3/uL Baso # (Auto) Not Reportable (0.0-0.1) 10^3/uL Absolute Nucleated RBC Not Reportable x10^3/uL Total Counted 100 Band Neuts % (Manual) 20 H (0 - 10) % Abnorm Lymph % (Manual) 0 % Nucleated RBC % Not Reportable /100WBC Neutrophils # (Manual) 2.9 (1.5-6.6) 10^3/uL Lymphocytes # (Manual) 1.2 L (1.5-3.5) 10^3/uL Monocytes # (Manual) 0.7 (0.0-1.0) 10^3/uL Eosinophils # (Manual) 0.0 (0-0.7) 10^3/uL Basophils # (Manual) 0.0 (0-0.1) 10^3/uL Differential Comment MANUAL DIFFERENTIAL Manual Slide Review Indicated WBC Morphology (NORMAL) Platelet Estimate NORMAL (130-450,000) (NORMAL) Platelet Morphology NORMAL APPEARANCE (NORMAL) RBC Morph Micro Appear 1+ OVALOCYTES (NORMAL) Bld Gas Analysis Time 2343 Sample Site RIGHT RADIAL ABG pH 7.39 (7.35-7.45) ABG pCO2 32 L (34-45) mmHg ABG pO2 181 H* (80-100) mmHg ABG HCO3 18.9 L (22.0-26.0) mmol/L ABG Total CO2 19.8 L (21.0-29.0) MMOL/L ABG O2 Saturation 99 H (94-98) % ABG Base Excess -5.1 L (-2.0-3.0) mmol/L Horacio Test POSITIVE VBG pH (7.31-7.41) Ionized Calcium (1.15-1.33) mmol/L Respiration Rate 12 b/min Vent Mode SIMV FiO2 100.00 Tidal Volume 560 mL PEEP 5 cmH2O Pressure Support Vent 10 cmH2O Sodium 140 (135-145) mmol/L Potassium 3.7 (3.5-5.0) mmol/L Chloride 106 (101-111) mmol/L Carbon Dioxide 22 (21-32) mmol/L Anion Gap 12.0 (6-13) BUN 53 H (6-20) mg/dL Creatinine 1.1 (0.6-1.2) mg/dL Estimated GFR (MDRD) 64 L (>89) Glucose 160 H (70-100) mg/dL POC Whole Bld Glucose (70 - 100) mg/dL Lactic Acid (0.5-2.2) mmol/L Calcium 7.7 L (8.5-10.3) mg/dL Total Bilirubin (0.2-1.0) mg/dL AST (10-42) IU/L ALT (10-60) IU/L Alkaline Phosphatase (42-121) IU/L Total Protein (6.7-8.2) g/dL Albumin (3.2-5.5) g/dL Globulin (2.1-4.2) g/dL Albumin/Globulin Ratio (1.0-2.2) Amylase (28-100) U/L Nasal Screen MRSA (PCR) (NEGATIVE) 07/21/19 07/21/19 07/21/19 Range/Units 21:36 21:15 21:00 WBC (4.8-10.8) x10^3/uL RBC (4.70-6.10) 10^6/uL Hgb (14.0-18.0) g/dL Hct (42.0-52.0) % MCV (80.0-94.0) fL MCH (27.0-31.0) pg MCHC (32.0-36.0) g/dL RDW (12.0-15.0) % Plt Count (130-450) 10^3/uL MPV (7.4-11.4) fL Neut # (Auto) (1.5-6.6) 10^3/uL Lymph # (Auto) (1.5-3.5) 10^3/uL [place] # (Auto) (0.0-1.0) 10^3/uL Eos # (Auto) (0.0-0.7) 10^3/uL Baso # (Auto) (0.0-0.1) 10^3/uL Absolute Nucleated RBC x10^3/uL Total Counted Band Neuts % (Manual) (0 - 10) % Abnorm Lymph % (Manual) % Nucleated RBC % /100WBC Neutrophils # (Manual) (1.5-6.6) 10^3/uL Lymphocytes # (Manual) (1.5-3.5) 10^3/uL Monocytes # (Manual) (0.0-1.0) 10^3/uL Eosinophils # (Manual) (0-0.7) 10^3/uL Basophils # (Manual) (0-0.1) 10^3/uL Differential Comment Manual Slide Review WBC Morphology (NORMAL) Platelet Estimate (NORMAL) Platelet Morphology (NORMAL) RBC Morph Micro Appear (NORMAL) Bld Gas Analysis Time Sample Site ABG pH (7.35-7.45) ABG pCO2 (34-45) mmHg ABG pO2 (80-100) mmHg ABG HCO3 (22.0-26.0) mmol/L ABG Total CO2 (21.0-29.0) MMOL/L ABG O2 Saturation (94-98) % ABG Base Excess (-2.0-3.0) mmol/L Horacio Test VBG pH (7.31-7.41) Ionized Calcium (1.15-1.33) mmol/L Respiration Rate b/min Vent Mode FiO2 Tidal Volume mL PEEP cmH2O Pressure Support Vent cmH2O Sodium (135-145) mmol/L Potassium (3.5-5.0) mmol/L Chloride (101-111) mmol/L Carbon Dioxide (21-32) mmol/L Anion Gap (6-13) BUN (6-20) mg/dL Creatinine (0.6-1.2) mg/dL Estimated GFR (MDRD) (>89) Glucose (70-100) mg/dL POC Whole Bld Glucose 156 H (70 - 100) mg/dL Lactic Acid 1.4 (0.5-2.2) mmol/L Calcium (8.5-10.3) mg/dL Total Bilirubin (0.2-1.0) mg/dL AST (10-42) IU/L ALT (10-60) IU/L Alkaline Phosphatase (42-121) IU/L Total Protein (6.7-8.2) g/dL Albumin (3.2-5.5) g/dL Globulin (2.1-4.2) g/dL Albumin/Globulin Ratio (1.0-2.2) Amylase (28-100) U/L Nasal Screen MRSA (PCR) NEGATIVE (NEGATIVE) 07/21/19 Range/Units 09:07 WBC 3.1 L (4.8-10.8) x10^3/uL RBC 4.09 L (4.70-6.10) 10^6/uL Hgb 14.2 (14.0-18.0) g/dL Hct 43.0 (42.0-52.0) % MCV 105.1 H (80.0-94.0) fL MCH 34.7 H (27.0-31.0) pg MCHC 33.0 (32.0-36.0) g/dL RDW 14.1 (12.0-15.0) % Plt Count 176 (130-450) 10^3/uL MPV 10.1 (7.4-11.4) fL Neut # (Auto) 1.7 (1.5-6.6) 10^3/uL Lymph # (Auto) 0.7 L (1.5-3.5) 10^3/uL [place] # (Auto) 0.7 (0.0-1.0) 10^3/uL Eos # (Auto) 0.0 (0.0-0.7) 10^3/uL Baso # (Auto) 0.0 (0.0-0.1) 10^3/uL Absolute Nucleated RBC 0.00 x10^3/uL Total Counted Band Neuts % (Manual) (0 - 10) % Abnorm Lymph % (Manual) % Nucleated RBC % 0.0 /100WBC Neutrophils # (Manual) (1.5-6.6) 10^3/uL Lymphocytes # (Manual) (1.5-3.5) 10^3/uL Monocytes # (Manual) (0.0-1.0) 10^3/uL Eosinophils # (Manual) (0-0.7) 10^3/uL Basophils # (Manual) (0-0.1) 10^3/uL Differential Comment Manual Slide Review Indicated WBC Morphology (NORMAL) Platelet Estimate (NORMAL) Platelet Morphology (NORMAL) RBC Morph Micro Appear 2+ ANISOCYTOSIS (NORMAL) Bld Gas Analysis Time Sample Site ABG pH (7.35-7.45) ABG pCO2 (34-45) mmHg ABG pO2 (80-100) mmHg ABG HCO3 (22.0-26.0) mmol/L ABG Total CO2 (21.0-29.0) MMOL/L ABG O2 Saturation (94-98) % ABG Base Excess (-2.0-3.0) mmol/L Horacio Test VBG pH (7.31-7.41) Ionized Calcium (1.15-1.33) mmol/L Respiration Rate b/min Vent Mode FiO2 Tidal Volume mL PEEP cmH2O Pressure Support Vent cmH2O Sodium (135-145) mmol/L Potassium (3.5-5.0) mmol/L Chloride (101-111) mmol/L Carbon Dioxide (21-32) mmol/L Anion Gap (6-13) BUN (6-20) mg/dL Creatinine (0.6-1.2) mg/dL Estimated GFR (MDRD) (>89) Glucose (70-100) mg/dL POC Whole Bld Glucose (70 - 100) mg/dL Lactic Acid (0.5-2.2) mmol/L Calcium (8.5-10.3) mg/dL Total Bilirubin (0.2-1.0) mg/dL AST (10-42) IU/L ALT (10-60) IU/L Alkaline Phosphatase (42-121) IU/L Total Protein (6.7-8.2) g/dL Albumin (3.2-5.5) g/dL Globulin (2.1-4.2) g/dL Albumin/Globulin Ratio (1.0-2.2) Amylase (28-100) U/L Nasal Screen MRSA (PCR) (NEGATIVE) - Current Medications Current Medications: Current Medications Generic Name Dose Route Start Last Admin Trade Name Freq PRN Reason Stop Dose Admin Enoxaparin Sodium 40 mg 07/21/19 09:00 07/21/19 11:40 Lovenox SUBQ Not Given DAILY BRO Multivitamins 10 ml/ Thiamine 1,011.2 mls @ 100 mls/hr 07/21/19 09:30 07/21/19 20:00 HCl 100 mg/ Folic Acid 1 mg/ IV Infused Sodium Chloride DAILY BRO Infusion Potassium Chloride/Dextrose/Sod Cl 1,000 mls @ 75 mls/hr 07/21/19 14:24 07/22/19 08:48 D5.45ns W/20 Meq Kcl IV 0 mls/hr .[id number] BRO Infusion Metronidazole 500 mg in 100 mls @ 100 mls/hr 07/21/19 22:00 07/22/19 07:00 Flagyl 500 Mg/100 Ml IV Infused Q8HR BRO Infusion Propofol 100 mls @ 4.23 mls/hr 07/21/19 22:00 07/22/19 08:30 Diprivan IV 40 mcg/kg/min .[id number] BRO 16.92 mls/hr Administration Protocol 10 MCG/KG/MIN Sodium Chloride 500 mls @ 0 mls/hr 07/21/19 21:49 07/22/19 08:00 Normal Saline 0.9% IV 20 mls/hr Q24H PRN Infusion TKO RATE TKO Potassium Chloride 20 meq in 100 mls @ 100 mls/hr 07/22/19 08:00 07/22/19 08:40 Potassium Chloride IV 07/22/19 09:59 100 mls/hr Q1H BRO Administration Piperacillin Sod/Tazobactam 100 mls @ 25 mls/hr 07/22/19 09:00 07/22/19 08:48 Sod 3.375 gm/ Sodium Chloride IV 25 mls/hr Q8H BRO Administration Sodium Chloride 500 mls @ 0 mls/hr 07/22/19 08:25 07/22/19 08:30 Normal Saline 0.9% IV 20 mls/hr Q24H PRN Administration TKO RATE TKO Lorazepam 1 mg 07/21/19 08:48 07/21/19 22:20 Ativan Inj (Vial) IVP 1 mg Q1H PRN Administration CIWA >8 Protocol Morphine Sulfate 2 mg 07/20/19 16:12 07/22/19 08:04 Morphine (Carpuject) IVP 2 mg Q2HR PRN Administration Pain 8 to 10 Pantoprazole Sodium 40 mg 07/22/19 07:00 07/22/19 07:14 Protonix IVP 40 mg QDAC BRO Administration Sodium Chloride 10 ml 07/20/19 16:12 07/21/19 22:21 Normal Saline Flush 0.9% IVP 60 ml PRN PRN Administration NEEDED PER PROVIDER ORDERS Sodium Chloride 10 ml 07/21/19 01:00 07/22/19 04:19 Normal Saline Flush 0.9% IVP 10 ml 0100,0900,1700 BRO Administration Sodium Chloride 10 ml 07/22/19 01:00 07/22/19 07:05 Normal Saline Flush 0.9% IVP 10 ml 0100,0900,1700 BRO Administration Sodium Chloride 10 ml 07/21/19 21:06 07/22/19 07:15 Normal Saline Flush 0.9% IVP 10 ml PRN PRN Administration NEEDED PER PROVIDER ORDERS Sodium Chloride 20 ml 07/21/19 21:49 07/22/19 07:05 Normal Saline Flush 0.9% IVP 20 ml PRN PRN Administration After Blood Draw - Physical Exam Wound/Incisions: positive: Dressing dry and intact General Appearance: positive: No acute distress Eyes Bilateral: positive: PERRL Respiratory: positive: No respiratory distress Cardiovascular: positive: Regular rate & rhythm Abdomen: positive: Other (Distended and quiet. Dressing intact and dry. 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 Hemodynamically stable and ostomy is viable. Continue Zosyn and Flagyl. Management of all of the patient's confounding medical issues per the hospitalist service.
[2019-07-22] MEDS ORDERED: ENOXAPARIN 40 MG/0.4 ML SYRINGE SUBQ SCH (09:00)
[2019-07-22] MEDS: ENOXAPARIN 40 MG/0.4 ML SYRINGE SUBQ SCH (09:11)
[2019-07-22 09:14] LABS: ABG BASE EXCESS -1.4 mmol/L (-2.0-3.0); ABG HCO3 22.1 mmol/L (22.0-26.0); ABG OXYGEN SATURATION 97 % (94-98); ABG PCO2 33 mmHg (34-45); ABG PH 7.44 (7.35-7.45); ABG PO2 101 mmHg (80-100); ABG TCO2 23.1 MMOL/L (21.0-29.0)
[2019-07-22] MEDS: CHLORHEXIDINE GLUCONATE 15 ML UDC PO SCH ×2 (09:17→20:57)
[2019-07-22] MEDS: MIDAZOLAM DRIP 50 MG/100 ML BAG IV SCH (09:45)
[2019-07-22 11:17] LABS: ABG BASE EXCESS -2.5 mmol/L (-2.0-3.0); ABG HCO3 20.9 mmol/L (22.0-26.0); ABG OXYGEN SATURATION 96 % (94-98); ABG PCO2 32 mmHg (34-45); ABG PH 7.44 (7.35-7.45); ABG PO2 86 mmHg (80-100); ABG TCO2 21.9 MMOL/L (21.0-29.0)
[2019-07-22 11:18] LABS: ALLEN TEST POSITIVE
[2019-07-22] MEDS: MULTIVITAMIN 10 ML, THIAMINE INJ 100 MG, FOLIC ACID INJ 1 MG in SODIUM CHLORIDE 0.9% 1,... IV SCH (12:05)
[2019-07-23 00:48] LABS: ABG BASE EXCESS -3.4 mmol/L (-2.0-3.0); ABG HCO3 20.6 mmol/L (22.0-26.0); ABG OXYGEN SATURATION 98 % (94-98); ABG PCO2 33 mmHg (34-45); ABG PH 7.41 (7.35-7.45); ABG PO2 111 mmHg (80-100); ABG TCO2 21.6 MMOL/L (21.0-29.0)
[2019-07-23] MEDS: PIPERACILLIN/TAZOBACTAM 3.375 GM in SODIUM CHLORIDE 0.9% MINIBAG 100 ML IV SCH ×3 (00:48→16:50)
[2019-07-23 00:49] LABS: ALLEN TEST POSITIVE
[2019-07-23] MEDS: MIDAZOLAM DRIP 50 MG/100 ML BAG IV SCH (00:53)
[2019-07-23] MEDS: PROPOFOL 1000 MG/100 ML 100 ML IV SCH ×4 (01:20→19:50)
[2019-07-23] MEDS: SODIUM CHLORIDE FLUSH 0.9% 10 ML SYRINGE IVP PRN ×4 (04:15→20:26)
[2019-07-23 04:41] LABS: BASOPHILS % (AUTO) 0.3 %; EOSINOPHILS % (AUTO) 2.6 %; HGB - HEMOGLOBIN 10.1 g/dL (14.0-18.0); LYMPHOCYTES % (AUTO) 10.6 %; MEAN CORPUSCULAR HEMOGLOBIN 34.4 pg (27.0-31.0); MEAN CORPUSCULAR HGB CONC 32.3 g/dL (32.0-36.0); MEAN CORPUSCULAR VOLUME 106.5 fL (80.0-94.0); MEAN PLATELET VOLUME 10.1 fL (7.4-11.4); PLT - PLATELET COUNT 143 10^3/uL (130-450); RED BLOOD COUNT 2.94 10^6/uL (4.70-6.10); RED CELL DISTRIBUTION WIDTH 14.4 % (12.0-15.0); WHITE BLOOD COUNT 5.8 x10^3/uL (4.8-10.8)
[2019-07-23 04:44] LABS: ABNORMAL LYMPHS % (MANUAL) 0 %; BAND NEUTROPHILS % (MANUAL) 0 %
[2019-07-23 04:45] LABS: ALBUMIN/GLOBULIN RATIO 0.8 (1.0-2.2); BILIRUBIN,TOTAL 0.5 mg/dL (0.2-1.0); CALCIUM 7.6 mg/dL (8.5-10.3); CREATININE 0.9 mg/dL (0.6-1.2); TOTAL PROTEIN 4.5 g/dL (6.7-8.2)
[2019-07-23 05:19] LABS: EOSINOPHILS # (MANUAL) 0.1 10^3/uL (0-0.7); LYMPHOCYTES # (MANUAL) 0.5 10^3/uL (1.5-3.5); LYMPHOCYTES % (MANUAL) 8 %; MONOCYTES # (MANUAL) 0.7 10^3/uL (0.0-1.0)
[2019-07-23 05:20] LABS: RBC MORPHOLOGY (MULTIPLE) NORMAL APPEARANCE (NORMAL)
[2019-07-23 05:21] LABS: PLATELET MORPHOLOGY NORMAL APPEARANCE (NORMAL)
[2019-07-23 05:22] LABS: DIFFERENTIAL COMMENT MANUAL DIFFERENTIAL; PLATELET ESTIMATE, MANUAL NORMAL (130-450,000) (NORMAL)
[2019-07-23 05:39] LABS: VBG PH 7.355 (7.31-7.41)
[2019-07-23 05:59] LABS: MAGNESIUM 2.7 mg/dL (1.7-2.8); PHOSPHORUS 2.1 mg/dL (2.5-4.6)
[2019-07-23] MEDS: metroNIDAZOLE 500 MG/100 ML 500 MG/100 ML BAG IV SCH ×3 (06:05→21:30)
[2019-07-23] MEDS: PANTOPRAZOLE 40 MG VIAL IVP SCH (06:08)
[2019-07-23] MEDS ORDERED: POTASSIUM PHOSPHATE 15 MMOL in SODIUM CHLORIDE 0.9% 250 ML IV ONE (08:00)
[2019-07-23] MEDS: MULTIVITAMIN 10 ML, THIAMINE INJ 100 MG, FOLIC ACID INJ 1 MG in SODIUM CHLORIDE 0.9% 1,... IV SCH (08:20)
[2019-07-23] MEDS: ENOXAPARIN 40 MG/0.4 ML SYRINGE SUBQ SCH (08:48)
[2019-07-23] MEDS: CHLORHEXIDINE GLUCONATE 15 ML UDC PO SCH ×2 (08:48→21:30)
[2019-07-23] MEDS: SODIUM CHLORIDE FLUSH 0.9% 10 ML SYRINGE IVP SCH ×5 (08:49→21:35)
--- NOTE | 2019-07-23 09:27 | PROVIDER PROGRESS NOTE ---
Subjective - General Admit Date: 07/20/19 Procedure Date: 07/21/19 Post Op Days: 2 Procedure Performed: Exploratory Laparotomy with total abdominal colectomy and Dang's pouch - Review of Systems Wound/Incisions: positive: Dressing dry and intact - Other Other Information/Narrative: Unable to obtain as patient is sedated and mechanically ventilated. Objective - Patient Data Reviewed Vital Signs: Yes Vital Signs: Vital Signs x48h Temp Pulse Pulse Resp BP BP Pulse Ox 07/23/19 09:14 72 07/23/19 09:00 36.3 C L 73 22 124/67 135/55 H 98 07/23/19 08:00 36.1 C L 74 24 135/74 H 98 07/23/19 07:22 72 07/23/19 07:00 75 22 118/68 97 07/23/19 06:00 72 22 102/58 L 96 07/23/19 05:35 72 07/23/19 05:00 73 22 113/65 96 07/23/19 04:00 36.6 C 73 15 116/64 97 07/23/19 03:15 77 07/23/19 03:00 74 23 111/65 97 07/23/19 02:00 74 21 109/64 96 Weight: Weight 07/21/19 07/22/19 07/23/19 23:59 23:59 23:59 Weight (kg) 70.5 kg 74.5 kg 77.5 kg Intake & Output: Intake and Output Totals x24h 07/21/19 07/22/19 07/23/19 23:59 23:59 23:59 Intake Total 4299.752 4306.341 1239.227 Output Total 1575 1154 407 Balance 2724.752 3152.341 832.227 - Lab Results Lab Results: 07/23/19 03:40 07/23/19 03:40 Other Lab Results: Lab Results x24hrs 07/23/19 07/23/19 07/23/19 Range/Units 06:16 03:40 03:40 WBC (4.8-10.8) x10^3/uL RBC (4.70-6.10) 10^6/uL Hgb (14.0-18.0) g/dL Hct (42.0-52.0) % MCV (80.0-94.0) fL MCH (27.0-31.0) pg MCHC (32.0-36.0) g/dL RDW (12.0-15.0) % Plt Count (130-450) 10^3/uL MPV (7.4-11.4) fL Neut # (Auto) Lymph # (Auto) [place] # (Auto) Eos # (Auto) Baso # (Auto) Absolute Nucleated RBC Total Counted Band Neuts % (Manual) (0 - 10) % Abnorm Lymph % (Manual) % Nucleated RBC % Neutrophils # (Manual) (1.5-6.6) 10^3/uL Lymphocytes # (Manual) (1.5-3.5) 10^3/uL Monocytes # (Manual) (0.0-1.0) 10^3/uL Eosinophils # (Manual) (0-0.7) 10^3/uL Basophils # (Manual) (0-0.1) 10^3/uL Differential Comment WBC Morphology (NORMAL) Platelet Estimate (NORMAL) Platelet Morphology (NORMAL) RBC Morph Micro Appear (NORMAL) Bld Gas Analysis Time Sample Site ABG pH (7.35-7.45) ABG pCO2 (34-45) mmHg ABG pO2 (80-100) mmHg ABG HCO3 (22.0-26.0) mmol/L ABG Total CO2 (21.0-29.0) MMOL/L ABG O2 Saturation (94-98) % ABG Base Excess (-2.0-3.0) mmol/L Horacio Test VBG pH 7.355 (7.31-7.41) Ionized Calcium 1.08 L (1.15-1.33) mmol/L Respiration Rate b/min Vent Mode FiO2 Tidal Volume mL PEEP cmH2O Pressure Support Vent cmH2O Sodium (135-145) mmol/L Potassium (3.5-5.0) mmol/L Chloride (101-111) mmol/L Carbon Dioxide (21-32) mmol/L Anion Gap (6-13) BUN (6-20) mg/dL Creatinine (0.6-1.2) mg/dL Estimated GFR (MDRD) (>89) Glucose (70-100) mg/dL POC Whole Bld Glucose 161 H (70 - 100) mg/dL Calcium (8.5-10.3) mg/dL Phosphorus 2.1 L (2.5-4.6) mg/dL Magnesium 2.7 (1.7-2.8) mg/dL Total Bilirubin (0.2-1.0) mg/dL AST (10-42) IU/L ALT (10-60) IU/L Alkaline Phosphatase (42-121) IU/L Total Protein (6.7-8.2) g/dL Albumin (3.2-5.5) g/dL Globulin (2.1-4.2) g/dL Albumin/Globulin Ratio (1.0-2.2) 07/23/19 07/23/19 07/23/19 Range/Units 03:40 03:40 00:42 WBC 5.8 (4.8-10.8) x10^3/uL RBC 2.94 L (4.70-6.10) 10^6/uL Hgb 10.1 L (14.0-18.0) g/dL Hct 31.3 L (42.0-52.0) % MCV 106.5 H (80.0-94.0) fL MCH 34.4 H (27.0-31.0) pg MCHC 32.3 (32.0-36.0) g/dL RDW 14.4 (12.0-15.0) % Plt Count 143 (130-450) 10^3/uL MPV 10.1 (7.4-11.4) fL Neut # (Auto) Not Reportable Lymph # (Auto) Not Reportable [place] # (Auto) Not Reportable Eos # (Auto) Not Reportable Baso # (Auto) Not Reportable Absolute Nucleated RBC Not Reportable Total Counted 100 Band Neuts % (Manual) 0 (0 - 10) % Abnorm Lymph % (Manual) 0 % Nucleated RBC % Not Reportable Neutrophils # (Manual) 4.6 (1.5-6.6) 10^3/uL Lymphocytes # (Manual) 0.5 L (1.5-3.5) 10^3/uL Monocytes # (Manual) 0.7 (0.0-1.0) 10^3/uL Eosinophils # (Manual) 0.1 (0-0.7) 10^3/uL Basophils # (Manual) 0.0 (0-0.1) 10^3/uL Differential Comment MANUAL DIFFERENTIAL WBC Morphology NORMAL APPEARANCE (NORMAL) Platelet Estimate NORMAL (130-450,000) (NORMAL) Platelet Morphology NORMAL APPEARANCE (NORMAL) RBC Morph Micro Appear NORMAL APPEARANCE (NORMAL) Bld Gas Analysis Time 0046 Sample Site RIGHT RADIAL ABG pH 7.41 (7.35-7.45) ABG pCO2 33 L (34-45) mmHg ABG pO2 111 H (80-100) mmHg ABG HCO3 20.6 L (22.0-26.0) mmol/L ABG Total CO2 21.6 (21.0-29.0) MMOL/L ABG O2 Saturation 98 (94-98) % ABG Base Excess -3.4 L (-2.0-3.0) mmol/L Horacio Test POSITIVE VBG pH (7.31-7.41) Ionized Calcium (1.15-1.33) mmol/L Respiration Rate 12 b/min Vent Mode SIMV FiO2 40.00 Tidal Volume 500 mL PEEP 5 cmH2O Pressure Support Vent 10 cmH2O Sodium 142 (135-145) mmol/L Potassium 3.6 (3.5-5.0) mmol/L Chloride 113 H (101-111) mmol/L Carbon Dioxide 23 (21-32) mmol/L Anion Gap 6.0 (6-13) BUN 41 H (6-20) mg/dL Creatinine 0.9 (0.6-1.2) mg/dL Estimated GFR (MDRD) 81 L (>89) Glucose 179 H (70-100) mg/dL POC Whole Bld Glucose (70 - 100) mg/dL Calcium 7.6 L (8.5-10.3) mg/dL Phosphorus (2.5-4.6) mg/dL Magnesium (1.7-2.8) mg/dL Total Bilirubin 0.5 (0.2-1.0) mg/dL AST 23 (10-42) IU/L ALT 42 (10-60) IU/L Alkaline Phosphatase 46 (42-121) IU/L Total Protein 4.5 L (6.7-8.2) g/dL Albumin 2.0 L (3.2-5.5) g/dL Globulin 2.5 (2.1-4.2) g/dL Albumin/Globulin Ratio 0.8 L (1.0-2.2) 07/23/19 07/22/19 07/22/19 Range/Units 00:07 18:07 11:25 WBC (4.8-10.8) x10^3/uL RBC (4.70-6.10) 10^6/uL Hgb (14.0-18.0) g/dL Hct (42.0-52.0) % MCV (80.0-94.0) fL MCH (27.0-31.0) pg MCHC (32.0-36.0) g/dL RDW (12.0-15.0) % Plt Count (130-450) 10^3/uL MPV (7.4-11.4) fL Neut # (Auto) Lymph # (Auto) [place] # (Auto) Eos # (Auto) Baso # (Auto) Absolute Nucleated RBC Total Counted Band Neuts % (Manual) (0 - 10) % Abnorm Lymph % (Manual) % Nucleated RBC % Neutrophils # (Manual) (1.5-6.6) 10^3/uL Lymphocytes # (Manual) (1.5-3.5) 10^3/uL Monocytes # (Manual) (0.0-1.0) 10^3/uL Eosinophils # (Manual) (0-0.7) 10^3/uL Basophils # (Manual) (0-0.1) 10^3/uL Differential Comment WBC Morphology (NORMAL) Platelet Estimate (NORMAL) Platelet Morphology (NORMAL) RBC Morph Micro Appear (NORMAL) Bld Gas Analysis Time Sample Site ABG pH (7.35-7.45) ABG pCO2 (34-45) mmHg ABG pO2 (80-100) mmHg ABG HCO3 (22.0-26.0) mmol/L ABG Total CO2 (21.0-29.0) MMOL/L ABG O2 Saturation (94-98) % ABG Base Excess (-2.0-3.0) mmol/L Horacio Test VBG pH (7.31-7.41) Ionized Calcium (1.15-1.33) mmol/L Respiration Rate b/min Vent Mode FiO2 Tidal Volume mL PEEP cmH2O Pressure Support Vent cmH2O Sodium (135-145) mmol/L Potassium (3.5-5.0) mmol/L Chloride (101-111) mmol/L Carbon Dioxide (21-32) mmol/L Anion Gap (6-13) BUN (6-20) mg/dL Creatinine (0.6-1.2) mg/dL Estimated GFR (MDRD) (>89) Glucose (70-100) mg/dL POC Whole Bld Glucose 138 H 147 H 167 H (70 - 100) mg/dL Calcium (8.5-10.3) mg/dL Phosphorus (2.5-4.6) mg/dL Magnesium (1.7-2.8) mg/dL Total Bilirubin (0.2-1.0) mg/dL AST (10-42) IU/L ALT (10-60) IU/L Alkaline Phosphatase (42-121) IU/L Total Protein (6.7-8.2) g/dL Albumin (3.2-5.5) g/dL Globulin (2.1-4.2) g/dL Albumin/Globulin Ratio (1.0-2.2) 07/22/19 Range/Units 11:05 WBC (4.8-10.8) x10^3/uL RBC (4.70-6.10) 10^6/uL Hgb (14.0-18.0) g/dL Hct (42.0-52.0) % MCV (80.0-94.0) fL MCH (27.0-31.0) pg MCHC (32.0-36.0) g/dL RDW (12.0-15.0) % Plt Count (130-450) 10^3/uL MPV (7.4-11.4) fL Neut # (Auto) Lymph # (Auto) [place] # (Auto) Eos # (Auto) Baso # (Auto) Absolute Nucleated RBC Total Counted Band Neuts % (Manual) (0 - 10) % Abnorm Lymph % (Manual) % Nucleated RBC % Neutrophils # (Manual) (1.5-6.6) 10^3/uL Lymphocytes # (Manual) (1.5-3.5) 10^3/uL Monocytes # (Manual) (0.0-1.0) 10^3/uL Eosinophils # (Manual) (0-0.7) 10^3/uL Basophils # (Manual) (0-0.1) 10^3/uL Differential Comment WBC Morphology (NORMAL) Platelet Estimate (NORMAL) Platelet Morphology (NORMAL) RBC Morph Micro Appear (NORMAL) Bld Gas Analysis Time 1115 Sample Site ABG pH 7.44 (7.35-7.45) ABG pCO2 32 L (34-45) mmHg ABG pO2 86 (80-100) mmHg ABG HCO3 20.9 L (22.0-26.0) mmol/L ABG Total CO2 21.9 (21.0-29.0) MMOL/L ABG O2 Saturation 96 (94-98) % ABG Base Excess -2.5 L (-2.0-3.0) mmol/L Horacio Test POSITIVE VBG pH (7.31-7.41) Ionized Calcium (1.15-1.33) mmol/L Respiration Rate b/min Vent Mode FiO2 Tidal Volume mL PEEP cmH2O Pressure Support Vent cmH2O Sodium (135-145) mmol/L Potassium (3.5-5.0) mmol/L Chloride (101-111) mmol/L Carbon Dioxide (21-32) mmol/L Anion Gap (6-13) BUN (6-20) mg/dL Creatinine (0.6-1.2) mg/dL Estimated GFR (MDRD) (>89) Glucose (70-100) mg/dL POC Whole Bld Glucose (70 - 100) mg/dL Calcium (8.5-10.3) mg/dL Phosphorus (2.5-4.6) mg/dL Magnesium (1.7-2.8) mg/dL Total Bilirubin (0.2-1.0) mg/dL AST (10-42) IU/L ALT (10-60) IU/L Alkaline Phosphatase (42-121) IU/L Total Protein (6.7-8.2) g/dL Albumin (3.2-5.5) g/dL Globulin (2.1-4.2) g/dL Albumin/Globulin Ratio (1.0-2.2) - Current Medications Current Medications: Current Medications Generic Name Dose Route Start Last Admin Trade Name Freq PRN Reason Stop Dose Admin Chlorhexidine Gluconate 15 ml 07/22/19 09:00 07/23/19 08:48 Peridex PO 15 ml BID BRO Administration Enoxaparin Sodium 40 mg 07/21/19 09:00 07/23/19 08:48 Lovenox SUBQ 40 mg DAILY BRO Administration Heparin Sodium (Beef Lung) 30 - 50 unit 07/23/19 00:19 07/23/19 06:07 IVP 30 unit PRN PRN Administration Central Line Protocol (<24 hr) Multivitamins 10 ml/ Thiamine 1,011.2 mls @ 100 mls/hr 07/21/19 09:30 07/23/19 08:20 HCl 100 mg/ Folic Acid 1 mg/ IV 100 mls/hr Sodium Chloride DAILY BRO Administration Potassium Chloride/Dextrose/Sod Cl 1,000 mls @ 75 mls/hr 07/21/19 14:24 07/23/19 08:40 D5.45ns W/20 Meq Kcl IV 0 mls/hr .[id number] BRO Infusion Metronidazole 500 mg in 100 mls @ 100 mls/hr 07/21/19 22:00 07/23/19 07:05 Flagyl 500 Mg/100 Ml IV Infused Q8HR BRO Infusion Propofol 100 mls @ 4.23 mls/hr 07/21/19 22:00 07/23/19 08:00 Diprivan IV 35 mcg/kg/min .[id number] BRO 14.805 mls/hr Titration Protocol 10 MCG/KG/MIN Sodium Chloride 500 mls @ 0 mls/hr 07/21/19 21:49 07/23/19 00:00 Normal Saline 0.9% IV Infused Q24H PRN Infusion TKO RATE TKO Piperacillin Sod/Tazobactam 100 mls @ 25 mls/hr 07/22/19 09:00 07/23/19 08:40 Sod 3.375 gm/ Sodium Chloride IV 25 mls/hr Q8H BRO Administration Sodium Chloride 500 mls @ 0 mls/hr 07/22/19 08:25 07/23/19 08:00 Normal Saline 0.9% IV 20 mls/hr Q24H PRN Infusion TKO RATE TKO Midazolam HCl 50 mg in 100 mls @ 5.96 mls/hr 07/22/19 09:00 07/23/19 08:00 Versed Drip IV 07/23/19 10:00 0.04 mg/kg/hr .[id number] BRO 5.96 mls/hr Infusion 0.04 MG/KG/HR Potassium Phosphate 15 mmol/ 255 mls @ 63 mls/hr 07/23/19 08:00 07/23/19 08:25 Sodium Chloride IV 07/23/19 12:02 63 mls/hr ONCE ONE Administration Protocol Lorazepam 1 mg 07/21/19 08:48 07/21/19 22:20 Ativan Inj (Vial) IVP 1 mg Q1H PRN Administration CIWA >8 Protocol Morphine Sulfate 2 mg 07/20/19 16:12 07/22/19 20:25 Morphine (Carpuject) IVP 2 mg Q2HR PRN Administration Pain 8 to 10 Pantoprazole Sodium 40 mg 07/22/19 07:00 07/23/19 06:08 Protonix IVP 40 mg QDAC BRO Administration Sodium Chloride 10 ml 07/20/19 16:12 07/23/19 06:08 Normal Saline Flush 0.9% IVP 10 ml PRN PRN Administration NEEDED PER PROVIDER ORDERS Sodium Chloride 10 ml 07/21/19 01:00 07/23/19 08:49 Normal Saline Flush 0.9% IVP 10 ml 0100,0900,1700 BRO Administration Sodium Chloride 10 ml 07/22/19 01:00 07/23/19 08:50 Normal Saline Flush 0.9% IVP Not Given 0100,0900,1700 BRO Sodium Chloride 10 ml 07/21/19 21:06 07/22/19 07:15 Normal Saline Flush 0.9% IVP 10 ml PRN PRN Administration NEEDED PER PROVIDER ORDERS Sodium Chloride 20 ml 07/21/19 21:49 07/23/19 04:15 Normal Saline Flush 0.9% IVP 20 ml PRN PRN Administration After Blood Draw - Physical Exam Wound/Incisions: positive: Dressing dry and intact Respiratory: positive: No respiratory distress, Breath sounds nml Cardiovascular: positive: Regular rate & rhythm Abdomen: positive: Other (Ostomy is well vascularized. The mucosa is pink and viable. No output. Hypoactive bowel tones.) Back: positive: Nml inspection. negative: CVA tenderness (R), CVA tenderness (L) Skin: positive: Color nml, No rash ABX Reporting Has patient been on IV antibiotics over the past 48 hours?: Yes Impression/Plan - Problem List Problem List: Agree with all current management. Continue Zosyn and Flagyl. Await return of bowel function. Agree with TPN
[2019-07-23] MEDS: SODIUM CHLORIDE 0.9% 500 ML IV PRN (10:00)
[2019-07-23] MEDS: MORPHINE 2 MG/ML CARPUJECT IVP PRN ×3 (12:08→20:26)
[2019-07-23] MEDS ORDERED: MINERAL OIL/PETROLAT OPHTH OINT EACHEYE PRN (13:33)
[2019-07-23] MEDS: D5.45NS W/20 MEQ KCL 1,000 ML IV SCH ×2 (14:00→20:54)
--- NOTE | 2019-07-23 15:16 | PROVIDER PROGRESS NOTE ---
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 Colostomy iin place. He is on empiric iv Zosyn and Flagyl Surgery following along (3) S/P total colectomy Assessment/Plan: As above (4) On mechanically assisted ventilation Assessment/Plan: Will taper off the Versed at midday (which is treating alcohol withdrawal). Will taper off propofol following that and give a weaning trial but will rest him overnight on the ventilator again, a full weaning trial for extubation is planned for tomorrow (5) Dehydration Assessment/Plan: Getting Banana bag and other drips. Follow BMP daily (6) Hypokalemia Assessment/Plan: Electrolyte protocol, to replace, ordered (7) Alcohol abuse Assessment/Plan: His AST is > ALT and the had reported to the last provider, by phone, after he was here a day, that the patient drinks daily and heavily. Yesterday, after being here 1 day, he was more confused and the impression therefore was that he was starting to go through alcohol withdrawal. A banana bag was ordered and CIWA protocol with prn iv Ativan. Now he is sedated on Propofol and cannot assess a CIWA score. Versed drip for alcohol withdrawal was on for 24 hours. Continue iv Banana Bag (8) Anemia Assessment/Plan: Hemodilutional and eBL. Follow CBC daily (9) HTN (hypertension) Assessment/Plan: iv meds as needed for HTN - Current Meds Current Meds: Current Medications Generic Name Dose Route Start Last Admin Trade Name Freq PRN Reason Stop Dose Admin Chlorhexidine Gluconate 15 ml 07/22/19 09:00 07/23/19 08:48 Peridex PO 15 ml BID BRO Administration Enoxaparin Sodium 40 mg 07/21/19 09:00 07/23/19 08:48 Lovenox SUBQ 40 mg DAILY BRO Administration Heparin Sodium (Beef Lung) 30 - 50 unit 07/23/19 00:19 07/23/19 06:07 IVP 30 unit PRN PRN Administration Central Line Protocol (<24 hr) Multivitamins 10 ml/ Thiamine 1,011.2 mls @ 100 mls/hr 07/21/19 09:30 07/23/19 15:00 HCl 100 mg/ Folic Acid 1 mg/ IV 100 mls/hr Sodium Chloride DAILY BRO Infusion Potassium Chloride/Dextrose/Sod Cl 1,000 mls @ 75 mls/hr 07/21/19 14:24 07/23/19 14:20 D5.45ns W/20 Meq Kcl IV 0 mls/hr .[id number] BRO Infusion Metronidazole 500 mg in 100 mls @ 100 mls/hr 07/21/19 22:00 07/23/19 14:20 Flagyl 500 Mg/100 Ml IV 100 mls/hr Q8HR BRO Administration Propofol 100 mls @ 4.23 mls/hr 07/21/19 22:00 07/23/19 15:00 Diprivan IV 35 mcg/kg/min .[id number] BRO 14.805 mls/hr Titration Protocol 10 MCG/KG/MIN Sodium Chloride 500 mls @ 0 mls/hr 07/21/19 21:49 07/23/19 15:00 Normal Saline 0.9% IV 20 mls/hr Q24H PRN Infusion TKO RATE TKO Piperacillin Sod/Tazobactam 100 mls @ 25 mls/hr 07/22/19 09:00 07/23/19 12:40 Sod 3.375 gm/ Sodium Chloride IV Infused Q8H BRO Infusion Sodium Chloride 500 mls @ 0 mls/hr 07/22/19 08:25 07/23/19 10:00 Normal Saline 0.9% IV Infused Q24H PRN Infusion TKO RATE TKO Lorazepam 1 mg 07/21/19 08:48 07/21/19 22:20 Ativan Inj (Vial) IVP 1 mg Q1H PRN Administration CIWA >8 Protocol Morphine Sulfate 2 mg 07/20/19 16:12 07/23/19 14:14 Morphine (Carpuject) IVP 2 mg Q2HR PRN Administration Pain 8 to 10 Multi-Ingred Cream/Lotion/Oil/Oint 1 applic 07/23/19 13:33 07/23/19 14:32 Lubrifresh Pm Ophth Oint EACHEYE 1 applic QPM PRN Administration Dry Eye Pantoprazole Sodium 40 mg 07/22/19 07:00 07/23/19 06:08 Protonix IVP 40 mg QDAC BRO Administration Sodium Chloride 10 ml 07/20/19 16:12 07/23/19 06:08 Normal Saline Flush 0.9% IVP 10 ml PRN PRN Administration NEEDED PER PROVIDER ORDERS Sodium Chloride 10 ml 07/21/19 01:00 07/23/19 08:49 Normal Saline Flush 0.9% IVP 10 ml 0100,0900,1700 BRO Administration Sodium Chloride 10 ml 07/22/19 01:00 07/23/19 08:50 Normal Saline Flush 0.9% IVP Not Given 0100,0900,1700 BRO Sodium Chloride 10 ml 07/21/19 21:06 07/22/19 07:15 Normal Saline Flush 0.9% IVP 10 ml PRN PRN Administration NEEDED PER PROVIDER ORDERS Sodium Chloride 20 ml 07/21/19 21:49 07/23/19 04:15 Normal Saline Flush 0.9% IVP 20 ml PRN PRN Administration After Blood Draw - Lab Result Fish Bone Diagrams: 07/25/19 04:15 07/25/19 04:15 - Additional Planning My Orders: My Active Orders 07/23/19 13:33 Mineral Oil/Petrola Ophth Oint [Cristo Ophth Oint] 1 applic EACHEYE QPM PRN Subjective - Subjective Patient Reports: Other (Sefated) Objective Vital Signs: Vital Signs - 24 hr 07/22/19 07/22/19 07/22/19 16:00 17:00 17:08 Temperature 36.0 C L Heart Rate 76 Heart Rate [ 77 77 Monitoring electrodes] Respiratory 23 23 Rate Blood Pressure 123/68 113/63 [Left Brachial artery] Blood Pressure [Right Radial artery] O2 Saturation 98 97 07/22/19 07/22/19 07/22/19 18:00 19:00 19:43 Temperature 36.6 C Heart Rate Heart Rate [ 78 75 Monitoring electrodes] Respiratory 22 22 Rate Blood Pressure 113/64 111/62 [Left Brachial artery] Blood Pressure [Right Radial artery] O2 Saturation 98 98 07/22/19 07/22/19 07/22/19 20:00 20:28 21:00 Temperature Heart Rate 74 Heart Rate [ 74 75 Monitoring electrodes] Respiratory 22 20 Rate Blood Pressure 113/62 122/70 [Left Brachial artery] Blood Pressure [Right Radial artery] O2 Saturation 98 98 07/22/19 07/22/19 07/22/19 22:00 22:06 23:00 Temperature Heart Rate 75 Heart Rate [ 73 73 Monitoring electrodes] Respiratory 19 19 Rate Blood Pressure 117/66 110/64 [Left Brachial artery] Blood Pressure [Right Radial artery] O2 Saturation 98 97 07/22/19 07/23/19 07/23/19 23:19 00:00 00:35 Temperature 36.6 C Heart Rate 73 Heart Rate [ 73 Monitoring electrodes] Respiratory 20 Rate Blood Pressure 116/65 [Left Brachial artery] Blood Pressure [Right Radial artery] O2 Saturation 98 07/23/19 07/23/19 07/23/19 01:00 02:00 03:00 Temperature Heart Rate Heart Rate [ 73 74 74 Monitoring electrodes] Respiratory 21 21 23 Rate Blood Pressure 115/63 109/64 111/65 [Left Brachial artery] Blood Pressure [Right Radial artery] O2 Saturation 96 96 97 07/23/19 07/23/19 07/23/19 03:15 04:00 05:00 Temperature 36.6 C Heart Rate 77 Heart Rate [ 73 73 Monitoring electrodes] Respiratory 15 22 Rate Blood Pressure 116/64 113/65 [Left Brachial artery] Blood Pressure [Right Radial artery] O2 Saturation 97 96 07/23/19 07/23/19 07/23/19 05:35 06:00 07:00 Temperature Heart Rate 72 Heart Rate [ 72 75 Monitoring electrodes] Respiratory 22 22 Rate Blood Pressure 102/58 L 118/68 [Left Brachial artery] Blood Pressure [Right Radial artery] O2 Saturation 96 97 07/23/19 07/23/19 07/23/19 07:22 08:00 09:00 Temperature 36.1 C L 36.3 C L Heart Rate 72 Heart Rate [ 74 73 Monitoring electrodes] Respiratory 24 22 Rate Blood Pressure 135/74 H 124/67 [Left Brachial artery] Blood Pressure 135/55 H [Right Radial artery] O2 Saturation 98 98 07/23/19 07/23/19 07/23/19 09:14 10:00 11:00 Temperature 36.4 C L Heart Rate 72 Heart Rate [ 74 71 Monitoring electrodes] Respiratory 24 22 Rate Blood Pressure 122/66 [Left Brachial artery] Blood Pressure 132/71 H 127/51 L [Right Radial artery] O2 Saturation 98 98 07/23/19 07/23/19 07/23/19 11:14 12:00 13:00 Temperature Heart Rate 70 Heart Rate [ 78 73 Monitoring electrodes] Respiratory 26 H 23 Rate Blood Pressure 139/77 H 142/73 H [Left Brachial artery] Blood Pressure 148/64 H 147/61 H [Right Radial artery] O2 Saturation 98 98 07/23/19 07/23/19 07/23/19 13:26 14:00 14:47 Temperature Heart Rate 72 80 Heart Rate [ 83 Monitoring electrodes] Respiratory 23 Rate Blood Pressure 157/82 H [Left Brachial artery] Blood Pressure 165/72 H [Right Radial artery] O2 Saturation 97 07/23/19 15:00 Temperature Heart Rate Heart Rate [ 79 Monitoring electrodes] Respiratory 20 Rate Blood Pressure 139/76 H [Left Brachial artery] Blood Pressure 158/65 H [Right Radial artery] O2 Saturation 97 Oxygen O2 Source Mechanical ventilator I&O (Last 24 Hrs): Intake and Output Totals x24h 07/21/19 07/22/19 07/23/19 23:59 23:59 23:59 Intake Total 4299.752 4306.341 2643.386 Output Total 1575 1154 605 Balance 2724.752 3152.341 2038.386 General: Other (Sedated, on vent) HEENT: Other (ET tube and ng tube in place) Neuro: Other (sedated) Cardiovascular: Regular rate, No murmurs Respiratory: No respiratory distress, Breath sounds nml Abdomen: Other (Bandaged, no bowel sounds) Extremities: No edema - Results Results: Laboratory Results WBC 5.8 x10^3/uL (4.8-10.8) 07/23/19 03:40 RBC 2.94 10^6/uL (4.70-6.10) L 07/23/19 03:40 Hgb 10.1 g/dL (14.0-18.0) L 07/23/19 03:40 Hct 31.3 % (42.0-52.0) L 07/23/19 03:40 MCV 106.5 fL (80.0-94.0) H 07/23/19 03:40 MCH 34.4 pg (27.0-31.0) H 07/23/19 03:40 MCHC 32.3 g/dL (32.0-36.0) 07/23/19 03:40 RDW 14.4 % (12.0-15.0) 07/23/19 03:40 Plt Count 143 10^3/uL (130-450) 07/23/19 03:40 MPV 10.1 fL (7.4-11.4) 07/23/19 03:40 Neut # (Auto) Not Reportable 07/23/19 03:40 Lymph # (Auto) Not Reportable 07/23/19 03:40 [place] # (Auto) Not Reportable 07/23/19 03:40 Eos # (Auto) Not Reportable 07/23/19 03:40 Baso # (Auto) Not Reportable 07/23/19 03:40 Absolute Nucleated RBC Not Reportable 07/23/19 03:40 Total Counted 100 07/23/19 03:40 Band Neuts % (Manual) 0 % (0-10) 07/23/19 03:40 Abnorm Lymph % (Manual) 0 % 07/23/19 03:40 Nucleated RBC % Not Reportable 07/23/19 03:40 Neutrophils # (Manual) 4.6 10^3/uL (1.5-6.6) 07/23/19 03:40 Lymphocytes # (Manual) 0.5 10^3/uL (1.5-3.5) L 07/23/19 03:40 Monocytes # (Manual) 0.7 10^3/uL (0.0-1.0) 07/23/19 03:40 Eosinophils # (Manual) 0.1 10^3/uL (0-0.7) 07/23/19 03:40 Basophils # (Manual) 0.0 10^3/uL (0-0.1) 07/23/19 03:40 Differential Comment MANUAL DIFFERENTIAL 07/23/19 03:40 Manual Slide Review Indicated 07/21/19 21:36 WBC Morphology NORMAL APPEARANCE (NORMAL) 07/23/19 03:40 Platelet Estimate NORMAL (130-450,000) (NORMAL) 07/23/19 03:40 Platelet Morphology NORMAL APPEARANCE (NORMAL) 07/23/19 03:40 RBC Morph Micro Appear NORMAL APPEARANCE (NORMAL) 07/22/19 04:35 RBC Morph Micro Appear NORMAL APPEARANCE (NORMAL) 07/23/19 03:40 PT 11.2 secs (9.9-12.6) 07/20/19 13:29 INR 1.0 (0.8-1.2) 07/20/19 13:29 Bld Gas Analysis Time 0046 07/23/19 00:42 Sample Site RIGHT RADIAL 07/23/19 00:42 ABG pH 7.41 (7.35-7.45) 07/23/19 00:42 ABG pCO2 33 mmHg (34-45) L 07/23/19 00:42 ABG pO2 111 mmHg (80-100) H 07/23/19 00:42 ABG HCO3 20.6 mmol/L (22.0-26.0) L 07/23/19 00:42 ABG Total CO2 21.6 MMOL/L (21.0-29.0) 07/23/19 00:42 ABG O2 Saturation 98 % (94-98) 07/23/19 00:42 ABG Base Excess -3.4 mmol/L (-2.0-3.0) L 07/23/19 00:42 Horacio Test POSITIVE 07/23/19 00:42 VBG pH 7.355 (7.31-7.41) 07/23/19 03:40 Ionized Calcium 1.08 mmol/L (1.15-1.33) L 07/23/19 03:40 Respiration Rate 12 b/min 07/23/19 00:42 O2 Delivery Device VENTILATOR 07/22/19 09:00 Vent Mode SIMV 07/23/19 00:42 FiO2 40.00 07/23/19 00:42 Tidal Volume 500 mL 07/23/19 00:42 PEEP 5 cmH2O 07/23/19 00:42 Pressure Support Vent 10 cmH2O 07/23/19 00:42 Sodium 142 mmol/L (135-145) 07/23/19 03:40 Potassium 3.6 mmol/L (3.5-5.0) 07/23/19 03:40 Chloride 113 mmol/L (101-111) H 07/23/19 03:40 Carbon Dioxide 23 mmol/L (21-32) 07/23/19 03:40 Anion Gap 6.0 (6-13) 07/23/19 03:40 BUN 41 mg/dL (6-20) H 07/23/19 03:40 Creatinine 0.9 mg/dL (0.6-1.2) 07/23/19 03:40 Estimated GFR (MDRD) 81 (>89) L 07/23/19 03:40 Glucose 179 mg/dL (70-100) H 07/23/19 03:40 POC Whole Bld Glucose 118 mg/dL (70 - 100) H 07/23/19 11:30 Lactic Acid 1.4 mmol/L (0.5-2.2) 07/21/19 21:36 Calcium 7.6 mg/dL (8.5-10.3) L 07/23/19 03:40 Phosphorus 2.1 mg/dL (2.5-4.6) L 07/23/19 03:40 Magnesium 2.7 mg/dL (1.7-2.8) 07/23/19 03:40 Total Bilirubin 0.5 mg/dL (0.2-1.0) 07/23/19 03:40 AST 23 IU/L (10-42) 07/23/19 03:40 ALT 42 IU/L (10-60) 07/23/19 03:40 Alkaline Phosphatase 46 IU/L (42-121) 07/23/19 03:40 Total Protein 4.5 g/dL (6.7-8.2) L 07/23/19 03:40 Albumin 2.0 g/dL (3.2-5.5) L 07/23/19 03:40 Globulin 2.5 g/dL (2.1-4.2) 07/23/19 03:40 Albumin/Globulin Ratio 0.8 (1.0-2.2) L 07/23/19 03:40 Amylase 19 U/L (28-100) L 07/22/19 04:35 Lipase 26 U/L (22-51) 07/20/19 13:29 Urine Color DARK YELLOW 07/20/19 23:35 Urine Clarity CLEAR (CLEAR) 07/20/19 23:35 Urine pH 6.5 PH (5.0-7.5) 07/20/19 23:35 Ur Specific [place] <=1.005 (1.002-1.030) 07/20/19 23:35 Urine Protein TRACE mg/dL (NEGATIVE) 07/20/19 23:35 Urine Glucose (UA) NEGATIVE mg/dL (NEGATIVE) 07/20/19 23:35 Urine Ketones 15 mg/dL (NEGATIVE) H 07/20/19 23:35 Urine Occult Blood TRACE-INTA (NEGATIVE) 07/20/19 23:35 Urine Nitrite NEGATIVE (NEGATIVE) 07/20/19 23:35 Urine Bilirubin NEGATIVE (NEGATIVE) 07/20/19 23:35 Urine Urobilinogen 1 (NORMAL) E.U./dL (NORMAL) 07/20/19 23:35 Ur Leukocyte Esterase NEGATIVE (NEGATIVE) 07/20/19 23:35 Ur Microscopic Review NOT INDICATED 07/20/19 23:35 Urine Culture Comments NOT INDICATED 07/20/19 23:35 Nasal Screen MRSA (PCR) NEGATIVE (NEGATIVE) 07/21/19 21:00 Ethyl Alcohol < 5.0 mg/dL 07/20/19 13:29 Sepsis Event Note (H) - Evaluation Current Stage of Sepsis: Ruled out
[2019-07-23 20:34] LABS: ABG BASE EXCESS -3.8 mmol/L (-2.0-3.0); ABG HCO3 19.7 mmol/L (22.0-26.0); ABG PCO2 31 mmHg (34-45); ABG PH 7.42 (7.35-7.45); ABG PO2 93 mmHg (80-100); ABG TCO2 20.7 MMOL/L (21.0-29.0)
[2019-07-23 20:35] LABS: ABG OXYGEN SATURATION 97 % (94-98); ALLEN TEST POSITIVE
[2019-07-24] MEDS: PROPOFOL 1000 MG/100 ML 100 ML IV SCH ×3 (00:49→18:44)
[2019-07-24] MEDS: PIPERACILLIN/TAZOBACTAM 3.375 GM in SODIUM CHLORIDE 0.9% MINIBAG 100 ML IV SCH ×3 (00:55→17:09)
[2019-07-24] MEDS: SODIUM CHLORIDE FLUSH 0.9% 10 ML SYRINGE IVP SCH ×5 (02:00→17:15)
[2019-07-24] MEDS: MORPHINE 2 MG/ML CARPUJECT IVP PRN ×4 (03:55→22:36)
[2019-07-24] MEDS: SODIUM CHLORIDE FLUSH 0.9% 10 ML SYRINGE IVP PRN ×4 (03:56→06:35)
[2019-07-24 05:20] LABS: VBG PH 7.355 (7.31-7.41)
[2019-07-24 05:23] LABS: BASOPHILS % (AUTO) 0.1 %; EOSINOPHILS # (AUTO) 0.2 10^3/uL (0.0-0.7); EOSINOPHILS % (AUTO) 3.2 %; HGB - HEMOGLOBIN 10.3 g/dL (14.0-18.0); LYMPHOCYTES # (AUTO) 0.8 10^3/uL (1.5-3.5); LYMPHOCYTES % (AUTO) 10.5 %; MEAN CORPUSCULAR HEMOGLOBIN 33.4 pg (27.0-31.0); MEAN CORPUSCULAR HGB CONC 31.6 g/dL (32.0-36.0); MEAN CORPUSCULAR VOLUME 105.8 fL (80.0-94.0); MEAN PLATELET VOLUME 10.2 fL (7.4-11.4); MONOCYTES # (AUTO) 1.2 10^3/uL (0.0-1.0); NEUTROPHILS # (AUTO) 5.2 10^3/uL (1.5-6.6); NEUTROPHILS % (AUTO) 69.7 %; PLT - PLATELET COUNT 165 10^3/uL (130-450); RED BLOOD COUNT 3.08 10^6/uL (4.70-6.10); RED CELL DISTRIBUTION WIDTH 14.4 % (12.0-15.0); WHITE BLOOD COUNT 7.5 x10^3/uL (4.8-10.8)
[2019-07-24 05:31] LABS: ALBUMIN 2.1 g/dL (3.2-5.5); ALBUMIN/GLOBULIN RATIO 0.8 (1.0-2.2); BILIRUBIN,TOTAL 0.7 mg/dL (0.2-1.0); CALCIUM 7.5 mg/dL (8.5-10.3); CREATININE 0.6 mg/dL (0.6-1.2); MAGNESIUM 2.5 mg/dL (1.7-2.8); PHOSPHORUS 1.9 mg/dL (2.5-4.6); TOTAL PROTEIN 4.9 g/dL (6.7-8.2)
[2019-07-24] MEDS: metroNIDAZOLE 500 MG/100 ML 500 MG/100 ML BAG IV SCH ×3 (05:35→21:49)
[2019-07-24] MEDS: PANTOPRAZOLE 40 MG VIAL IVP SCH (05:35)
[2019-07-24] MEDS ORDERED: POTASSIUM PHOSPHATE 15 MMOL in SODIUM CHLORIDE 0.9% 250 ML IV ONE (05:45)
--- NOTE | 2019-07-24 08:10 | XRAY Report ---
Reason: increased secretions. On vent Procedure Date: 07/24/2019 Accession Number: [id number] / [id number] Procedure: XR - Chest 1 View X-Ray CPT Code: 32009 Final Report FULL RESULT: EXAM: CHEST RADIOGRAPHY EXAM DATE: 07/24/2019 06:07 AM. CLINICAL HISTORY: Increased secretions. On vent. COMPARISON: 07/21/2019. TECHNIQUE: 1 view. FINDINGS: Devices: Support lines and tubes unchanged including ET tube 6.3 cm above the tracie. Lungs/Pleura: Similar low lung volumes with bibasilar hypoventilatory change. Apparent relative lucency again seen in the region of the right hemidiaphragm. Small pleural effusions. No apical pneumothorax. Mediastinum: Accentuated by low lung volumes. Borderline cardiomegaly. Stable superior mediastinal contour. Other: No acute fracture evident. IMPRESSION: 1. Little significant interval change, noting bibasilar atelectasis/infiltrates and small pleural effusions. 2. Stable support devices. 3. Relative lucency by the right hemidiaphragm similar to prior. 4. Similar borderline cardiomegaly, accentuated by low lung volumes. RADIA
[2019-07-24] MEDS: CHLORHEXIDINE GLUCONATE 15 ML UDC PO SCH ×2 (08:40→20:58)
[2019-07-24] MEDS: MULTIVITAMIN 10 ML, THIAMINE INJ 100 MG, FOLIC ACID INJ 1 MG in SODIUM CHLORIDE 0.9% 1,... IV SCH (08:41)
[2019-07-24] MEDS: ENOXAPARIN 40 MG/0.4 ML SYRINGE SUBQ SCH (08:43)
--- NOTE | 2019-07-24 08:59 | PROVIDER PROGRESS NOTE ---
Subjective - General Admit Date: 07/20/19 Procedure Date: 07/21/19 Post Op Days: 3 Procedure Performed: Exploratory Laparotomy with total abdominal colectomy and Dang's pouch - Review of Systems Wound/Incisions: positive: Dressing dry and intact General: positive: No symptoms (On ventillator) Pulmonary: positive: Other (Ventillator) Cardiovascular: positive: No symptoms Gastrointestinal: positive: Other (Ileostomy beginning to function) Objective - Patient Data Vital Signs: Vital Signs x48h Temp Pulse Pulse Resp BP BP BP 07/24/19 08:00 36.9 C 87 17 144/83 H 169/76 H 07/24/19 07:44 80 07/24/19 06:54 78 17 137/77 H 161/68 H 07/24/19 06:00 84 17 151/84 H 170/74 H 07/24/19 05:27 91 07/24/19 05:00 82 19 159/92 H 178/81 H 07/24/19 04:00 36.8 C 81 19 164/86 H 176/79 H 07/24/19 03:03 80 07/24/19 03:00 77 19 147/78 H 165/70 H 07/24/19 02:00 81 20 140/92 H 152/67 H 07/24/19 01:25 73 07/24/19 01:00 76 18 150/80 H 159/65 H Pulse Ox 07/24/19 08:00 97 07/24/19 07:44 07/24/19 06:54 98 07/24/19 06:00 98 07/24/19 05:27 07/24/19 05:00 97 07/24/19 04:00 99 07/24/19 03:03 07/24/19 03:00 100 07/24/19 02:00 99 07/24/19 01:25 07/24/19 01:00 98 Weight: Weight 07/22/19 07/23/19 07/24/19 23:59 23:59 23:59 Weight (kg) 74.5 kg 77.5 kg 78.5 kg Intake & Output: Intake and Output Totals x24h 07/22/19 07/23/19 07/24/19 23:59 23:59 23:59 Intake Total 4306.341 3900.505 1181.678 Output Total 1154 951 524 Balance 3152.341 2949.505 657.678 - Lab Results Lab Results: 07/24/19 04:50 07/24/19 04:50 Other Lab Results: Lab Results x24hrs 07/24/19 07/24/19 07/24/19 Range/Units 06:32 05:00 04:50 WBC (4.8-10.8) x10^3/uL RBC (4.70-6.10) 10^6/uL Hgb (14.0-18.0) g/dL Hct (42.0-52.0) % MCV (80.0-94.0) fL MCH (27.0-31.0) pg MCHC (32.0-36.0) g/dL RDW (12.0-15.0) % Plt Count (130-450) 10^3/uL MPV (7.4-11.4) fL Neut # (Auto) (1.5-6.6) 10^3/uL Lymph # (Auto) (1.5-3.5) 10^3/uL [place] # (Auto) (0.0-1.0) 10^3/uL Eos # (Auto) (0.0-0.7) 10^3/uL Baso # (Auto) (0.0-0.1) 10^3/uL Absolute Nucleated RBC x10^3/uL Nucleated RBC % /100WBC Bld Gas Analysis Time Sample Site ABG pH (7.35-7.45) ABG pCO2 (34-45) mmHg ABG pO2 (80-100) mmHg ABG HCO3 (22.0-26.0) mmol/L ABG Total CO2 (21.0-29.0) MMOL/L ABG O2 Saturation (94-98) % ABG Base Excess (-2.0-3.0) mmol/L Horacio Test VBG pH 7.355 (7.31-7.41) Ionized Calcium 1.13 L (1.15-1.33) mmol/L Respiration Rate b/min Vent Mode FiO2 Tidal Volume mL PEEP cmH2O Pressure Support Vent cmH2O Sodium 143 (135-145) mmol/L Potassium 3.6 (3.5-5.0) mmol/L Chloride 116 H (101-111) mmol/L Carbon Dioxide 22 (21-32) mmol/L Anion Gap 5.0 L (6-13) BUN 22 H (6-20) mg/dL Creatinine 0.6 (0.6-1.2) mg/dL Estimated GFR (MDRD) 129 (>89) Glucose 142 H (70-100) mg/dL POC Whole Bld Glucose 99 (70 - 100) mg/dL Calcium 7.5 L (8.5-10.3) mg/dL Phosphorus 1.9 L (2.5-4.6) mg/dL Magnesium 2.5 (1.7-2.8) mg/dL Total Bilirubin 0.7 (0.2-1.0) mg/dL AST 16 (10-42) IU/L ALT 34 (10-60) IU/L Alkaline Phosphatase 45 (42-121) IU/L Total Protein 4.9 L (6.7-8.2) g/dL Albumin 2.1 L (3.2-5.5) g/dL Globulin 2.8 (2.1-4.2) g/dL Albumin/Globulin Ratio 0.8 L (1.0-2.2) 07/24/19 07/23/19 07/23/19 Range/Units 04:50 23:50 20:24 WBC 7.5 (4.8-10.8) x10^3/uL RBC 3.08 L (4.70-6.10) 10^6/uL Hgb 10.3 L (14.0-18.0) g/dL Hct 32.6 L (42.0-52.0) % MCV 105.8 H (80.0-94.0) fL MCH 33.4 H (27.0-31.0) pg MCHC 31.6 L (32.0-36.0) g/dL RDW 14.4 (12.0-15.0) % Plt Count 165 (130-450) 10^3/uL MPV 10.2 (7.4-11.4) fL Neut # (Auto) 5.2 (1.5-6.6) 10^3/uL Lymph # (Auto) 0.8 L (1.5-3.5) 10^3/uL [place] # (Auto) 1.2 H (0.0-1.0) 10^3/uL Eos # (Auto) 0.2 (0.0-0.7) 10^3/uL Baso # (Auto) 0.0 (0.0-0.1) 10^3/uL Absolute Nucleated RBC 0.00 x10^3/uL Nucleated RBC % 0.0 /100WBC Bld Gas Analysis Time 2023 Sample Site RIGHT RADIAL ABG pH 7.42 (7.35-7.45) ABG pCO2 31 L (34-45) mmHg ABG pO2 93 (80-100) mmHg ABG HCO3 19.7 L (22.0-26.0) mmol/L ABG Total CO2 20.7 L (21.0-29.0) MMOL/L ABG O2 Saturation 97 (94-98) % ABG Base Excess -3.8 L (-2.0-3.0) mmol/L Horacio Test POSITIVE VBG pH (7.31-7.41) Ionized Calcium (1.15-1.33) mmol/L Respiration Rate 12 b/min Vent Mode SIMV FiO2 30.00 Tidal Volume 500 mL PEEP 5 cmH2O Pressure Support Vent 10 cmH2O Sodium (135-145) mmol/L Potassium (3.5-5.0) mmol/L Chloride (101-111) mmol/L Carbon Dioxide (21-32) mmol/L Anion Gap (6-13) BUN (6-20) mg/dL Creatinine (0.6-1.2) mg/dL Estimated GFR (MDRD) (>89) Glucose (70-100) mg/dL POC Whole Bld Glucose 134 H (70 - 100) mg/dL Calcium (8.5-10.3) mg/dL Phosphorus (2.5-4.6) mg/dL Magnesium (1.7-2.8) mg/dL Total Bilirubin (0.2-1.0) mg/dL AST (10-42) IU/L ALT (10-60) IU/L Alkaline Phosphatase (42-121) IU/L Total Protein (6.7-8.2) g/dL Albumin (3.2-5.5) g/dL Globulin (2.1-4.2) g/dL Albumin/Globulin Ratio (1.0-2.2) 07/23/19 07/23/19 Range/Units 18:11 11:30 WBC (4.8-10.8) x10^3/uL RBC (4.70-6.10) 10^6/uL Hgb (14.0-18.0) g/dL Hct (42.0-52.0) % MCV (80.0-94.0) fL MCH (27.0-31.0) pg MCHC (32.0-36.0) g/dL RDW (12.0-15.0) % Plt Count (130-450) 10^3/uL MPV (7.4-11.4) fL Neut # (Auto) (1.5-6.6) 10^3/uL Lymph # (Auto) (1.5-3.5) 10^3/uL [place] # (Auto) (0.0-1.0) 10^3/uL Eos # (Auto) (0.0-0.7) 10^3/uL Baso # (Auto) (0.0-0.1) 10^3/uL Absolute Nucleated RBC x10^3/uL Nucleated RBC % /100WBC Bld Gas Analysis Time Sample Site ABG pH (7.35-7.45) ABG pCO2 (34-45) mmHg ABG pO2 (80-100) mmHg ABG HCO3 (22.0-26.0) mmol/L ABG Total CO2 (21.0-29.0) MMOL/L ABG O2 Saturation (94-98) % ABG Base Excess (-2.0-3.0) mmol/L Horacio Test VBG pH (7.31-7.41) Ionized Calcium (1.15-1.33) mmol/L Respiration Rate b/min Vent Mode FiO2 Tidal Volume mL PEEP cmH2O Pressure Support Vent cmH2O Sodium (135-145) mmol/L Potassium (3.5-5.0) mmol/L Chloride (101-111) mmol/L Carbon Dioxide (21-32) mmol/L Anion Gap (6-13) BUN (6-20) mg/dL Creatinine (0.6-1.2) mg/dL Estimated GFR (MDRD) (>89) Glucose (70-100) mg/dL POC Whole Bld Glucose 126 H 118 H (70 - 100) mg/dL Calcium (8.5-10.3) mg/dL Phosphorus (2.5-4.6) mg/dL Magnesium (1.7-2.8) mg/dL Total Bilirubin (0.2-1.0) mg/dL AST (10-42) IU/L ALT (10-60) IU/L Alkaline Phosphatase (42-121) IU/L Total Protein (6.7-8.2) g/dL Albumin (3.2-5.5) g/dL Globulin (2.1-4.2) g/dL Albumin/Globulin Ratio (1.0-2.2) - Current Medications Current Medications: Current Medications Generic Name Dose Route Start Last Admin Trade Name Freq PRN Reason Stop Dose Admin Chlorhexidine Gluconate 15 ml 07/22/19 09:00 07/24/19 08:40 Peridex PO 15 ml BID BRO Administration Enoxaparin Sodium 40 mg 07/21/19 09:00 07/24/19 08:43 Lovenox SUBQ 40 mg DAILY BRO Administration Heparin Sodium (Beef Lung) 30 - 50 unit 07/23/19 00:19 07/24/19 04:49 IVP 30 unit PRN PRN Administration Central Line Protocol (<24 hr) Multivitamins 10 ml/ Thiamine 1,011.2 mls @ 100 mls/hr 07/21/19 09:30 07/24/19 08:41 HCl 100 mg/ Folic Acid 1 mg/ IV 100 mls/hr Sodium Chloride DAILY BRO Administration Potassium Chloride/Dextrose/Sod Cl 1,000 mls @ 75 mls/hr 07/21/19 14:24 07/24/19 08:48 D5.45ns W/20 Meq Kcl IV 0 mls/hr .[id number] BRO Infusion Metronidazole 500 mg in 100 mls @ 100 mls/hr 07/21/19 22:00 07/24/19 06:37 Flagyl 500 Mg/100 Ml IV Infused Q8HR BRO Infusion Propofol 100 mls @ 4.23 mls/hr 07/21/19 22:00 07/24/19 08:33 Diprivan IV 0 mcg/kg/min .[id number] BRO 0 mls/hr Titration Protocol 10 MCG/KG/MIN Sodium Chloride 500 mls @ 0 mls/hr 07/21/19 21:49 07/24/19 06:00 Normal Saline 0.9% IV 20 mls/hr Q24H PRN Infusion TKO RATE TKO Piperacillin Sod/Tazobactam 100 mls @ 25 mls/hr 07/22/19 09:00 07/24/19 04:55 Sod 3.375 gm/ Sodium Chloride IV Infused Q8H BRO Infusion Sodium Chloride 500 mls @ 0 mls/hr 07/22/19 08:25 07/23/19 10:00 Normal Saline 0.9% IV Infused Q24H PRN Infusion TKO RATE TKO Potassium Phosphate 15 mmol/ 255 mls @ 63 mls/hr 07/24/19 05:45 07/24/19 06:37 Sodium Chloride IV 07/24/19 09:47 63 mls/hr ONCE ONE Administration Protocol Lorazepam 1 mg 07/21/19 08:48 07/21/19 22:20 Ativan Inj (Vial) IVP 1 mg Q1H PRN Administration CIWA >8 Protocol Morphine Sulfate 2 mg 07/20/19 16:12 07/24/19 05:30 Morphine (Carpuject) IVP 2 mg Q2HR PRN Administration Pain 8 to 10 Multi-Ingred Cream/Lotion/Oil/Oint 1 applic 07/23/19 13:33 07/23/19 14:32 Lubrifresh Pm Ophth Oint EACHEYE 1 applic QPM PRN Administration Dry Eye Pantoprazole Sodium 40 mg 07/22/19 07:00 07/24/19 05:35 Protonix IVP 40 mg QDAC BRO Administration Sodium Chloride 10 ml 07/20/19 16:12 07/24/19 06:35 Normal Saline Flush 0.9% IVP 10 ml PRN PRN Administration NEEDED PER PROVIDER ORDERS Sodium Chloride 10 ml 07/21/19 01:00 07/24/19 02:00 Normal Saline Flush 0.9% IVP 10 ml 0100,0900,1700 BRO Administration Sodium Chloride 10 ml 07/22/19 01:00 07/23/19 21:35 Normal Saline Flush 0.9% IVP 10 ml 0100,0900,1700 BRO Administration Sodium Chloride 10 ml 07/21/19 21:06 07/23/19 18:38 Normal Saline Flush 0.9% IVP 10 ml PRN PRN Administration NEEDED PER PROVIDER ORDERS Sodium Chloride 20 ml 07/21/19 21:49 07/24/19 04:49 Normal Saline Flush 0.9% IVP 20 ml PRN PRN Administration After Blood Draw
--- NOTE | 2019-07-24 09:02 | PROVIDER PROGRESS NOTE ---
Subjective - General Admit Date: 07/20/19 Procedure Date: 07/21/19 Post Op Days: 3 Procedure Performed: Exploratory Laparotomy with total abdominal colectomy and Dang's pouch - Review of Systems Wound/Incisions: positive: Dressing dry and intact General: positive: No symptoms (On ventillator) Pulmonary: positive: Other (Ventillator) Cardiovascular: positive: No symptoms Gastrointestinal: positive: Other (Ileostomy beginning to function) Genitourinary: positive: Other (Kern cath output 20-30ml/hr Scrotal edema) Skin: positive: No symptoms Objective - Patient Data Vital Signs: Vital Signs x48h Temp Pulse Pulse Resp BP BP BP 07/24/19 08:00 36.9 C 87 17 144/83 H 169/76 H 07/24/19 07:44 80 07/24/19 06:54 78 17 137/77 H 161/68 H 07/24/19 06:00 84 17 151/84 H 170/74 H 07/24/19 05:27 91 07/24/19 05:00 82 19 159/92 H 178/81 H 07/24/19 04:00 36.8 C 81 19 164/86 H 176/79 H 07/24/19 03:03 80 07/24/19 03:00 77 19 147/78 H 165/70 H 07/24/19 02:00 81 20 140/92 H 152/67 H 07/24/19 01:25 73 Pulse Ox 07/24/19 08:00 97 07/24/19 07:44 07/24/19 06:54 98 07/24/19 06:00 98 07/24/19 05:27 07/24/19 05:00 97 07/24/19 04:00 99 07/24/19 03:03 07/24/19 03:00 100 07/24/19 02:00 99 07/24/19 01:25 Weight: Weight 07/22/19 07/23/19 07/24/19 23:59 23:59 23:59 Weight (kg) 74.5 kg 77.5 kg 78.5 kg Intake & Output: Intake and Output Totals x24h 07/22/19 07/23/19 07/24/19 23:59 23:59 23:59 Intake Total 4306.341 3900.505 1181.678 Output Total 1154 951 524 Balance 3152.341 2949.505 657.678 - Lab Results Lab Results: 07/24/19 04:50 07/24/19 04:50 Other Lab Results: Lab Results x24hrs 07/24/19 07/24/19 07/24/19 Range/Units 06:32 05:00 04:50 WBC (4.8-10.8) x10^3/uL RBC (4.70-6.10) 10^6/uL Hgb (14.0-18.0) g/dL Hct (42.0-52.0) % MCV (80.0-94.0) fL MCH (27.0-31.0) pg MCHC (32.0-36.0) g/dL RDW (12.0-15.0) % Plt Count (130-450) 10^3/uL MPV (7.4-11.4) fL Neut # (Auto) (1.5-6.6) 10^3/uL Lymph # (Auto) (1.5-3.5) 10^3/uL [place] # (Auto) (0.0-1.0) 10^3/uL Eos # (Auto) (0.0-0.7) 10^3/uL Baso # (Auto) (0.0-0.1) 10^3/uL Absolute Nucleated RBC x10^3/uL Nucleated RBC % /100WBC Bld Gas Analysis Time Sample Site ABG pH (7.35-7.45) ABG pCO2 (34-45) mmHg ABG pO2 (80-100) mmHg ABG HCO3 (22.0-26.0) mmol/L ABG Total CO2 (21.0-29.0) MMOL/L ABG O2 Saturation (94-98) % ABG Base Excess (-2.0-3.0) mmol/L Horacio Test VBG pH 7.355 (7.31-7.41) Ionized Calcium 1.13 L (1.15-1.33) mmol/L Respiration Rate b/min Vent Mode FiO2 Tidal Volume mL PEEP cmH2O Pressure Support Vent cmH2O Sodium 143 (135-145) mmol/L Potassium 3.6 (3.5-5.0) mmol/L Chloride 116 H (101-111) mmol/L Carbon Dioxide 22 (21-32) mmol/L Anion Gap 5.0 L (6-13) BUN 22 H (6-20) mg/dL Creatinine 0.6 (0.6-1.2) mg/dL Estimated GFR (MDRD) 129 (>89) Glucose 142 H (70-100) mg/dL POC Whole Bld Glucose 99 (70 - 100) mg/dL Calcium 7.5 L (8.5-10.3) mg/dL Phosphorus 1.9 L (2.5-4.6) mg/dL Magnesium 2.5 (1.7-2.8) mg/dL Total Bilirubin 0.7 (0.2-1.0) mg/dL AST 16 (10-42) IU/L ALT 34 (10-60) IU/L Alkaline Phosphatase 45 (42-121) IU/L Total Protein 4.9 L (6.7-8.2) g/dL Albumin 2.1 L (3.2-5.5) g/dL Globulin 2.8 (2.1-4.2) g/dL Albumin/Globulin Ratio 0.8 L (1.0-2.2) 07/24/19 07/23/19 07/23/19 Range/Units 04:50 23:50 20:24 WBC 7.5 (4.8-10.8) x10^3/uL RBC 3.08 L (4.70-6.10) 10^6/uL Hgb 10.3 L (14.0-18.0) g/dL Hct 32.6 L (42.0-52.0) % MCV 105.8 H (80.0-94.0) fL MCH 33.4 H (27.0-31.0) pg MCHC 31.6 L (32.0-36.0) g/dL RDW 14.4 (12.0-15.0) % Plt Count 165 (130-450) 10^3/uL MPV 10.2 (7.4-11.4) fL Neut # (Auto) 5.2 (1.5-6.6) 10^3/uL Lymph # (Auto) 0.8 L (1.5-3.5) 10^3/uL [place] # (Auto) 1.2 H (0.0-1.0) 10^3/uL Eos # (Auto) 0.2 (0.0-0.7) 10^3/uL Baso # (Auto) 0.0 (0.0-0.1) 10^3/uL Absolute Nucleated RBC 0.00 x10^3/uL Nucleated RBC % 0.0 /100WBC Bld Gas Analysis Time 2023 Sample Site RIGHT RADIAL ABG pH 7.42 (7.35-7.45) ABG pCO2 31 L (34-45) mmHg ABG pO2 93 (80-100) mmHg ABG HCO3 19.7 L (22.0-26.0) mmol/L ABG Total CO2 20.7 L (21.0-29.0) MMOL/L ABG O2 Saturation 97 (94-98) % ABG Base Excess -3.8 L (-2.0-3.0) mmol/L Horacio Test POSITIVE VBG pH (7.31-7.41) Ionized Calcium (1.15-1.33) mmol/L Respiration Rate 12 b/min Vent Mode SIMV FiO2 30.00 Tidal Volume 500 mL PEEP 5 cmH2O Pressure Support Vent 10 cmH2O Sodium (135-145) mmol/L Potassium (3.5-5.0) mmol/L Chloride (101-111) mmol/L Carbon Dioxide (21-32) mmol/L Anion Gap (6-13) BUN (6-20) mg/dL Creatinine (0.6-1.2) mg/dL Estimated GFR (MDRD) (>89) Glucose (70-100) mg/dL POC Whole Bld Glucose 134 H (70 - 100) mg/dL Calcium (8.5-10.3) mg/dL Phosphorus (2.5-4.6) mg/dL Magnesium (1.7-2.8) mg/dL Total Bilirubin (0.2-1.0) mg/dL AST (10-42) IU/L ALT (10-60) IU/L Alkaline Phosphatase (42-121) IU/L Total Protein (6.7-8.2) g/dL Albumin (3.2-5.5) g/dL Globulin (2.1-4.2) g/dL Albumin/Globulin Ratio (1.0-2.2) 07/23/19 07/23/19 Range/Units 18:11 11:30 WBC (4.8-10.8) x10^3/uL RBC (4.70-6.10) 10^6/uL Hgb (14.0-18.0) g/dL Hct (42.0-52.0) % MCV (80.0-94.0) fL MCH (27.0-31.0) pg MCHC (32.0-36.0) g/dL RDW (12.0-15.0) % Plt Count (130-450) 10^3/uL MPV (7.4-11.4) fL Neut # (Auto) (1.5-6.6) 10^3/uL Lymph # (Auto) (1.5-3.5) 10^3/uL [place] # (Auto) (0.0-1.0) 10^3/uL Eos # (Auto) (0.0-0.7) 10^3/uL Baso # (Auto) (0.0-0.1) 10^3/uL Absolute Nucleated RBC x10^3/uL Nucleated RBC % /100WBC Bld Gas Analysis Time Sample Site ABG pH (7.35-7.45) ABG pCO2 (34-45) mmHg ABG pO2 (80-100) mmHg ABG HCO3 (22.0-26.0) mmol/L ABG Total CO2 (21.0-29.0) MMOL/L ABG O2 Saturation (94-98) % ABG Base Excess (-2.0-3.0) mmol/L Horacio Test VBG pH (7.31-7.41) Ionized Calcium (1.15-1.33) mmol/L Respiration Rate b/min Vent Mode FiO2 Tidal Volume mL PEEP cmH2O Pressure Support Vent cmH2O Sodium (135-145) mmol/L Potassium (3.5-5.0) mmol/L Chloride (101-111) mmol/L Carbon Dioxide (21-32) mmol/L Anion Gap (6-13) BUN (6-20) mg/dL Creatinine (0.6-1.2) mg/dL Estimated GFR (MDRD) (>89) Glucose (70-100) mg/dL POC Whole Bld Glucose 126 H 118 H (70 - 100) mg/dL Calcium (8.5-10.3) mg/dL Phosphorus (2.5-4.6) mg/dL Magnesium (1.7-2.8) mg/dL Total Bilirubin (0.2-1.0) mg/dL AST (10-42) IU/L ALT (10-60) IU/L Alkaline Phosphatase (42-121) IU/L Total Protein (6.7-8.2) g/dL Albumin (3.2-5.5) g/dL Globulin (2.1-4.2) g/dL Albumin/Globulin Ratio (1.0-2.2) - Current Medications Current Medications: Current Medications Generic Name Dose Route Start Last Admin Trade Name Freq PRN Reason Stop Dose Admin Chlorhexidine Gluconate 15 ml 07/22/19 09:00 07/24/19 08:40 Peridex PO 15 ml BID BRO Administration Enoxaparin Sodium 40 mg 07/21/19 09:00 07/24/19 08:43 Lovenox SUBQ 40 mg DAILY BRO Administration Heparin Sodium (Beef Lung) 30 - 50 unit 07/23/19 00:19 07/24/19 04:49 IVP 30 unit PRN PRN Administration Central Line Protocol (<24 hr) Multivitamins 10 ml/ Thiamine 1,011.2 mls @ 100 mls/hr 07/21/19 09:30 07/24/19 08:41 HCl 100 mg/ Folic Acid 1 mg/ IV 100 mls/hr Sodium Chloride DAILY BRO Administration Potassium Chloride/Dextrose/Sod Cl 1,000 mls @ 75 mls/hr 07/21/19 14:24 07/24/19 08:48 D5.45ns W/20 Meq Kcl IV 0 mls/hr .[id number] BRO Infusion Metronidazole 500 mg in 100 mls @ 100 mls/hr 07/21/19 22:00 07/24/19 06:37 Flagyl 500 Mg/100 Ml IV Infused Q8HR BRO Infusion Propofol 100 mls @ 4.23 mls/hr 07/21/19 22:00 07/24/19 08:33 Diprivan IV 0 mcg/kg/min .[id number] BRO 0 mls/hr Titration Protocol 10 MCG/KG/MIN Sodium Chloride 500 mls @ 0 mls/hr 07/21/19 21:49 07/24/19 06:00 Normal Saline 0.9% IV 20 mls/hr Q24H PRN Infusion TKO RATE TKO Piperacillin Sod/Tazobactam 100 mls @ 25 mls/hr 07/22/19 09:00 07/24/19 04:55 Sod 3.375 gm/ Sodium Chloride IV Infused Q8H BRO Infusion Sodium Chloride 500 mls @ 0 mls/hr 07/22/19 08:25 07/23/19 10:00 Normal Saline 0.9% IV Infused Q24H PRN Infusion TKO RATE TKO Potassium Phosphate 15 mmol/ 255 mls @ 63 mls/hr 07/24/19 05:45 07/24/19 06 :37 Sodium Chloride IV 07/24/19 09:47 63 mls/hr ONCE ONE Administration Protocol Lorazepam 1 mg 07/21/19 08:48 07/21/19 22:20 Ativan Inj (Vial) IVP 1 mg Q1H PRN Administration CIWA >8 Protocol Morphine Sulfate 2 mg 07/20/19 16:12 07/24/19 05:30 Morphine (Carpuject) IVP 2 mg Q2HR PRN Administration Pain 8 to 10 Multi-Ingred Cream/Lotion/Oil/Oint 1 applic 07/23/19 13:33 07/23/19 14:32 Lubrifresh Pm Ophth Oint EACHEYE 1 applic QPM PRN Administration Dry Eye Pantoprazole Sodium 40 mg 07/22/19 07:00 07/24/19 05:35 Protonix IVP 40 mg QDAC BRO Administration Sodium Chloride 10 ml 07/20/19 16:12 07/24/19 06:35 Normal Saline Flush 0.9% IVP 10 ml PRN PRN Administration NEEDED PER PROVIDER ORDERS Sodium Chloride 10 ml 07/21/19 01:00 07/24/19 02:00 Normal Saline Flush 0.9% IVP 10 ml 0100,0900,1700 BRO Administration Sodium Chloride 10 ml 07/22/19 01:00 07/23/19 21:35 Normal Saline Flush 0.9% IVP 10 ml 0100,0900,1700 BRO Administration Sodium Chloride 10 ml 07/21/19 21:06 07/23/19 18:38 Normal Saline Flush 0.9% IVP 10 ml PRN PRN Administration NEEDED PER PROVIDER ORDERS Sodium Chloride 20 ml 07/21/19 21:49 07/24/19 04:49 Normal Saline Flush 0.9% IVP 20 ml PRN PRN Administration After Blood Draw Impression/Plan - Problem List Problem List: 84 yo/wm POD #3 s/p Tot abd colectomy w/Kaz pouch and end ileostomy. Abd dressings clean and dry. Ileostomy viable and functional. Currently still on ventillator in ICU w/weaning protocol in progress. Cont ABX and other respiratory tx as per Hospitalist recommendations.
[2019-07-24] MEDS: D5.45NS W/20 MEQ KCL 1,000 ML IV SCH (11:11)
[2019-07-24 11:28] LABS: ABG BASE EXCESS -4.1 mmol/L (-2.0-3.0); ABG HCO3 19.1 mmol/L (22.0-26.0); ABG OXYGEN SATURATION 97 % (94-98); ABG PCO2 29 mmHg (34-45); ABG PH 7.43 (7.35-7.45); ABG PO2 101 mmHg (80-100)
--- NOTE | 2019-07-24 15:37 | PROVIDER PROGRESS NOTE ---
Subjective - General Admit Date: 07/20/19 Procedure Date: 07/21/19 Post Op Days: 3 Procedure Performed: Exploratory Laparotomy with total abdominal colectomy and Dang's pouch - Review of Systems Wound/Incisions: positive: Dressing dry and intact General: positive: No symptoms (On ventillator) Pulmonary: positive: Other (Ventillator) Cardiovascular: positive: No symptoms Gastrointestinal: positive: Other (Ileostomy beginning to function) Genitourinary: positive: Other (Kern cath output 20-30ml/hr Scrotal edema) Skin: positive: No symptoms Objective - Patient Data Vital Signs: Vital Signs x48h Temp Pulse Pulse Resp BP BP Pulse Ox 07/24/19 15:00 117 H 26 H 129/84 H 152/75 H 96 07/24/19 14:08 113 H 07/24/19 14:00 111 H 28 H 134/91 H 96 07/24/19 13:00 36.8 C 107 H 21 127/83 H 99 07/24/19 12:00 96 18 131/68 H 97 07/24/19 11:00 100 16 130/86 H 152/73 H 98 07/24/19 10:00 96 16 158/76 H 07/24/19 09:28 99 07/24/19 09:00 94 17 148/87 H 07/24/19 08:00 36.9 C 87 17 144/83 H 169/76 H 97 07/24/19 07:44 80 Weight: Weight 07/22/19 07/23/19 07/24/19 23:59 23:59 23:59 Weight (kg) 74.5 kg 77.5 kg 78.5 kg Intake & Output: Intake and Output Totals x24h 07/22/19 07/23/19 07/24/19 23:59 23:59 23:59 Intake Total 4306.341 3900.505 2664.178 Output Total 1154 951 819 Balance 3152.341 2949.505 1845.178 - Lab Results Lab Results: 07/24/19 04:50 07/24/19 04:50 Other Lab Results: Lab Results x24hrs 07/24/19 07/24/19 07/24/19 Range/Units 11:59 11:10 06:32 WBC (4.8-10.8) x10^3/uL RBC (4.70-6.10) 10^6/uL Hgb (14.0-18.0) g/dL Hct (42.0-52.0) % MCV (80.0-94.0) fL MCH (27.0-31.0) pg MCHC (32.0-36.0) g/dL RDW (12.0-15.0) % Plt Count (130-450) 10^3/uL MPV (7.4-11.4) fL Neut # (Auto) (1.5-6.6) 10^3/uL Lymph # (Auto) (1.5-3.5) 10^3/uL [place] # (Auto) (0.0-1.0) 10^3/uL Eos # (Auto) (0.0-0.7) 10^3/uL Baso # (Auto) (0.0-0.1) 10^3/uL Absolute Nucleated RBC x10^3/uL Nucleated RBC % /100WBC Bld Gas Analysis Time 1119 Sample Site A-LINE ABG pH 7.43 (7.35-7.45) ABG pCO2 29 L (34-45) mmHg ABG pO2 101 H (80-100) mmHg ABG HCO3 19.1 L (22.0-26.0) mmol/L ABG Total CO2 20.0 L (21.0-29.0) MMOL/L ABG O2 Saturation 97 (94-98) % ABG Base Excess -4.1 L (-2.0-3.0) mmol/L Horacio Test NOT APPLICABLE VBG pH (7.31-7.41) Ionized Calcium (1.15-1.33) mmol/L Respiration Rate b/min O2 Delivery Device C-PAP Vent Mode FiO2 30.00 Tidal Volume mL PEEP 5 cmH2O Pressure Support Vent 10 cmH2O Sodium (135-145) mmol/L Potassium (3.5-5.0) mmol/L Chloride (101-111) mmol/L Carbon Dioxide (21-32) mmol/L Anion Gap (6-13) BUN (6-20) mg/dL Creatinine (0.6-1.2) mg/dL Estimated GFR (MDRD) (>89) Glucose (70-100) mg/dL POC Whole Bld Glucose 110 H 99 (70 - 100) mg/dL Calcium (8.5-10.3) mg/dL Phosphorus (2.5-4.6) mg/dL Magnesium (1.7-2.8) mg/dL Total Bilirubin (0.2-1.0) mg/dL AST (10-42) IU/L ALT (10-60) IU/L Alkaline Phosphatase (42-121) IU/L Total Protein (6.7-8.2) g/dL Albumin (3.2-5.5) g/dL Globulin (2.1-4.2) g/dL Albumin/Globulin Ratio (1.0-2.2) 07/24/19 07/24/19 07/24/19 Range/Units 05:00 04:50 04:50 WBC 7.5 (4.8-10.8) x10^3/uL RBC 3.08 L (4.70-6.10) 10^6/uL Hgb 10.3 L (14.0-18.0) g/dL Hct 32.6 L (42.0-52.0) % MCV 105.8 H (80.0-94.0) fL MCH 33.4 H (27.0-31.0) pg MCHC 31.6 L (32.0-36.0) g/dL RDW 14.4 (12.0-15.0) % Plt Count 165 (130-450) 10^3/uL MPV 10.2 (7.4-11.4) fL Neut # (Auto) 5.2 (1.5-6.6) 10^3/uL Lymph # (Auto) 0.8 L (1.5-3.5) 10^3/uL [place] # (Auto) 1.2 H (0.0-1.0) 10^3/uL Eos # (Auto) 0.2 (0.0-0.7) 10^3/uL Baso # (Auto) 0.0 (0.0-0.1) 10^3/uL Absolute Nucleated RBC 0.00 x10^3/uL Nucleated RBC % 0.0 /100WBC Bld Gas Analysis Time Sample Site ABG pH (7.35-7.45) ABG pCO2 (34-45) mmHg ABG pO2 (80-100) mmHg ABG HCO3 (22.0-26.0) mmol/L ABG Total CO2 (21.0-29.0) MMOL/L ABG O2 Saturation (94-98) % ABG Base Excess (-2.0-3.0) mmol/L Horacio Test VBG pH 7.355 (7.31-7.41) Ionized Calcium 1.13 L (1.15-1.33) mmol/L Respiration Rate b/min O2 Delivery Device Vent Mode FiO2 Tidal Volume mL PEEP cmH2O Pressure Support Vent cmH2O Sodium 143 (135-145) mmol/L Potassium 3.6 (3.5-5.0) mmol/L Chloride 116 H (101-111) mmol/L Carbon Dioxide 22 (21-32) mmol/L Anion Gap 5.0 L (6-13) BUN 22 H (6-20) mg/dL Creatinine 0.6 (0.6-1.2) mg/dL Estimated GFR (MDRD) 129 (>89) Glucose 142 H (70-100) mg/dL POC Whole Bld Glucose (70 - 100) mg/dL Calcium 7.5 L (8.5-10.3) mg/dL Phosphorus 1.9 L (2.5-4.6) mg/dL Magnesium 2.5 (1.7-2.8) mg/dL Total Bilirubin 0.7 (0.2-1.0) mg/dL AST 16 (10-42) IU/L ALT 34 (10-60) IU/L Alkaline Phosphatase 45 (42-121) IU/L Total Protein 4.9 L (6.7-8.2) g/dL Albumin 2.1 L (3.2-5.5) g/dL Globulin 2.8 (2.1-4.2) g/dL Albumin/Globulin Ratio 0.8 L (1.0-2.2) 07/23/19 07/23/19 07/23/19 Range/Units 23:50 20:24 18:11 WBC (4.8-10.8) x10^3/uL RBC (4.70-6.10) 10^6/uL Hgb (14.0-18.0) g/dL Hct (42.0-52.0) % MCV (80.0-94.0) fL MCH (27.0-31.0) pg MCHC (32.0-36.0) g/dL RDW (12.0-15.0) % Plt Count (130-450) 10^3/uL MPV (7.4-11.4) fL Neut # (Auto) (1.5-6.6) 10^3/uL Lymph # (Auto) (1.5-3.5) 10^3/uL [place] # (Auto) (0.0-1.0) 10^3/uL Eos # (Auto) (0.0-0.7) 10^3/uL Baso # (Auto) (0.0-0.1) 10^3/uL Absolute Nucleated RBC x10^3/uL Nucleated RBC % /100WBC Bld Gas Analysis Time 2023 Sample Site RIGHT RADIAL ABG pH 7.42 (7.35-7.45) ABG pCO2 31 L (34-45) mmHg ABG pO2 93 (80-100) mmHg ABG HCO3 19.7 L (22.0-26.0) mmol/L ABG Total CO2 20.7 L (21.0-29.0) MMOL/L ABG O2 Saturation 97 (94-98) % ABG Base Excess -3.8 L (-2.0-3.0) mmol/L Horacio Test POSITIVE VBG pH (7.31-7.41) Ionized Calcium (1.15-1.33) mmol/L Respiration Rate 12 b/min O2 Delivery Device Vent Mode SIMV FiO2 30.00 Tidal Volume 500 mL PEEP 5 cmH2O Pressure Support Vent 10 cmH2O Sodium (135-145) mmol/L Potassium (3.5-5.0) mmol/L Chloride (101-111) mmol/L Carbon Dioxide (21-32) mmol/L Anion Gap (6-13) BUN (6-20) mg/dL Creatinine (0.6-1.2) mg/dL Estimated GFR (MDRD) (>89) Glucose (70-100) mg/dL POC Whole Bld Glucose 134 H 126 H (70 - 100) mg/dL Calcium (8.5-10.3) mg/dL Phosphorus (2.5-4.6) mg/dL Magnesium (1.7-2.8) mg/dL Total Bilirubin (0.2-1.0) mg/dL AST (10-42) IU/L ALT (10-60) IU/L Alkaline Phosphatase (42-121) IU/L Total Protein (6.7-8.2) g/dL Albumin (3.2-5.5) g/dL Globulin (2.1-4.2) g/dL Albumin/Globulin Ratio (1.0-2.2) - Current Medications Current Medications: Current Medications Generic Name Dose Route Start Last Admin Trade Name Freq PRN Reason Stop Dose Admin Chlorhexidine Gluconate 15 ml 07/22/19 09:00 07/24/19 08:40 Peridex PO 15 ml BID BRO Administration Enoxaparin Sodium 40 mg 07/21/19 09:00 07/24/19 08:43 Lovenox SUBQ 40 mg DAILY BRO Administration Heparin Sodium (Beef Lung) 30 - 50 unit 07/23/19 00:19 07/24/19 04:49 IVP 30 unit PRN PRN Administration Central Line Protocol (<24 hr) Multivitamins 10 ml/ Thiamine 1,011.2 mls @ 100 mls/hr 07/21/19 09:30 07/24/19 15:17 HCl 100 mg/ Folic Acid 1 mg/ IV 100 mls/hr Sodium Chloride DAILY BRO Infusion Potassium Chloride/Dextrose/Sod Cl 1,000 mls @ 75 mls/hr 07/21/19 14:24 07/24/19 15:17 D5.45ns W/20 Meq Kcl IV 75 mls/hr .[id number] BRO Infusion Metronidazole 500 mg in 100 mls @ 100 mls/hr 07/21/19 22:00 07/24/19 15:17 Flagyl 500 Mg/100 Ml IV Infused Q8HR BRO Infusion Propofol 100 mls @ 4.23 mls/hr 07/21/19 22:00 07/24/19 08:33 Diprivan IV 0 mcg/kg/min .[id number] BRO 0 mls/hr Titration Protocol 10 MCG/KG/MIN Sodium Chloride 500 mls @ 0 mls/hr 07/21/19 21:49 07/24/19 06:00 Normal Saline 0.9% IV 20 mls/hr Q24H PRN Infusion TKO RATE TKO Piperacillin Sod/Tazobactam 100 mls @ 25 mls/hr 07/22/19 09:00 07/24/19 15:17 Sod 3.375 gm/ Sodium Chloride IV Infused Q8H BRO Infusion Sodium Chloride 500 mls @ 0 mls/hr 07/22/19 08:25 07/23/19 10:00 Normal Saline 0.9% IV Infused Q24H PRN Infusion TKO RATE TKO Lorazepam 1 mg 07/21/19 08:48 07/21/19 22:20 Ativan Inj (Vial) IVP 1 mg Q1H PRN Administration CIWA >8 Protocol Morphine Sulfate 2 mg 07/20/19 16:12 07/24/19 05:30 Morphine (Carpuject) IVP 2 mg Q2HR PRN Administration Pain 8 to 10 Multi-Ingred Cream/Lotion/Oil/Oint 1 applic 07/23/19 13:33 07/23/19 14:32 Lubrifresh Pm Ophth Oint EACHEYE 1 applic QPM PRN Administration Dry Eye Pantoprazole Sodium 40 mg 07/22/19 07:00 07/24/19 05:35 Protonix IVP 40 mg QDAC BRO Administration Sodium Chloride 10 ml 07/20/19 16:12 07/24/19 06:35 Normal Saline Flush 0.9% IVP 10 ml PRN PRN Administration NEEDED PER PROVIDER ORDERS Sodium Chloride 10 ml 07/21/19 01:00 07/24/19 10:44 Normal Saline Flush 0.9% IVP 10 ml 0100,0900,1700 BRO Administration Sodium Chloride 10 ml 07/22/19 01:00 07/24/19 10:45 Normal Saline Flush 0.9% IVP 10 ml 0100,0900,1700 BRO Administration Sodium Chloride 10 ml 07/21/19 21:06 07/23/19 18:38 Normal Saline Flush 0.9% IVP 10 ml PRN PRN Administration NEEDED PER PROVIDER ORDERS Sodium Chloride 20 ml 07/21/19 21:49 07/24/19 04:49 Normal Saline Flush 0.9% IVP 20 ml PRN PRN Administration After Blood Draw Impression/Plan - Problem List Problem List: Patient still on vent. Failed wean attempt. Will try one more time but more than likely will need to stay ventillated till am.
[2019-07-24] MEDS: SODIUM CHLORIDE 0.9% 500 ML IV PRN (15:42)
--- NOTE | 2019-07-24 19:43 | PROVIDER PROGRESS NOTE ---
Assessment/Plan - Problem List (1) On mechanically assisted ventilation Assessment/Plan: Will try a CPAP trial, since he has been off Versed for a day, and off Propofol sedation for at least 8 hours. It was tried twice for an hpour each time, and he tolerated with good sats, but his NIF and wakefulness are too poor, no extubation today. Will resume the vent at night. He may still need an additional day with weaning trials, on the vent. The was updated about his status and plan at his bedside at length today. (2) Bowel obstruction Qualifiers: Intestinal obstruction extent: unspecified extent Qualified Code(s): K56.609 - Unspecified intestinal obstruction, unspecified as to partial versus complete obstruction Assessment/Plan: Obstructing sigmoid tumor removed. Pathiology still pending. 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 IV Zosyn and Flagyl continue. (4) S/P total colectomy Assessment/Plan: As above (5) Dehydration Assessment/Plan: IV fluids including Banana bag continue while he is intubated (6) Hypokalemia Assessment/Plan: ICU electrolyte protocol in place (7) Alcohol abuse Assessment/Plan: His AST is > ALT and the had reported to the last provider, by phone, after he was here a day, that the patient drinks daily and heavily. Yesterday, after being here 1 day, he was more confused and the impression tgerefore was that he was starting to go through alcohol withdrawal. A banana bag was ordered and CIWA protocol with prn iv Ativan. He empirically was on Versed drip for alcohol withdrawal for at least 24 hours in the first[post-op day.. Continue iv Banana Bag (8) Anemia Assessment/Plan: Hemodilutional and EBL. Monitor CBC daily. (9) HTN (hypertension) Assessment/Plan: iv GILDARDO meds if needed - Current Meds Current Meds: Current Medications Generic Name Dose Route Start Last Admin Trade Name Freq PRN Reason Stop Dose Admin Chlorhexidine Gluconate 15 ml 07/22/19 09:00 07/24/19 08:40 Peridex PO 15 ml BID BRO Administration Enoxaparin Sodium 40 mg 07/21/19 09:00 07/24/19 08:43 Lovenox SUBQ 40 mg DAILY BRO Administration Heparin Sodium (Beef Lung) 30 - 50 unit 07/23/19 00:19 07/24/19 04:49 IVP 30 unit PRN PRN Administration Central Line Protocol (<24 hr) Multivitamins 10 ml/ Thiamine 1,011.2 mls @ 100 mls/hr 07/21/19 09:30 07/24/19 19:17 HCl 100 mg/ Folic Acid 1 mg/ IV Infused Sodium Chloride DAILY BRO Infusion Potassium Chloride/Dextrose/Sod Cl 1,000 mls @ 75 mls/hr 07/21/19 14:24 07/24/19 15:17 D5.45ns W/20 Meq Kcl IV 75 mls/hr .[id number] BRO Infusion Metronidazole 500 mg in 100 mls @ 100 mls/hr 07/21/19 22:00 07/24/19 15:17 Flagyl 500 Mg/100 Ml IV Infused Q8HR BRO Infusion Propofol 100 mls @ 4.23 mls/hr 07/21/19 22:00 07/24/19 18:53 Diprivan IV 15 mcg/kg/min .[id number] BRO 6.345 mls/hr Titration Protocol 10 MCG/KG/MIN Sodium Chloride 500 mls @ 0 mls/hr 07/21/19 21:49 07/24/19 15:42 Normal Saline 0.9% IV 20 mls/hr Q24H PRN Administration TKO RATE TKO Piperacillin Sod/Tazobactam 100 mls @ 25 mls/hr 07/22/19 09:00 07/24/19 17:09 Sod 3.375 gm/ Sodium Chloride IV 25 mls/hr Q8H BRO Administration Sodium Chloride 500 mls @ 0 mls/hr 07/22/19 08:25 07/23/19 10:00 Normal Saline 0.9% IV Infused Q24H PRN Infusion TKO RATE TKO Lorazepam 1 mg 07/21/19 08:48 07/21/19 22:20 Ativan Inj (Vial) IVP 1 mg Q1H PRN Administration CIWA >8 Protocol Morphine Sulfate 2 mg 07/20/19 16:12 07/24/19 17:05 Morphine (Carpuject) IVP 2 mg Q2HR PRN Administration Pain 8 to 10 Multi-Ingred Cream/Lotion/Oil/Oint 1 applic 07/23/19 13:33 07/23/19 14:32 Lubrifresh Pm Ophth Oint EACHEYE 1 applic QPM PRN Administration Dry Eye Pantoprazole Sodium 40 mg 07/22/19 07:00 07/24/19 05:35 Protonix IVP 40 mg QDAC BRO Administration Sodium Chloride 10 ml 07/20/19 16:12 07/24/19 06:35 Normal Saline Flush 0.9% IVP 10 ml PRN PRN Administration NEEDED PER PROVIDER ORDERS Sodium Chloride 10 ml 07/21/19 01:00 07/24/19 17:15 Normal Saline Flush 0.9% IVP 10 ml 0100,0900,1700 BRO Administration Sodium Chloride 10 ml 07/22/19 01:00 07/24/19 17:15 Normal Saline Flush 0.9% IVP Not Given 0100,0900,1700 BRO Sodium Chloride 10 ml 07/21/19 21:06 07/23/19 18:38 Normal Saline Flush 0.9% IVP 10 ml PRN PRN Administration NEEDED PER PROVIDER ORDERS Sodium Chloride 20 ml 07/21/19 21:49 07/24/19 04:49 Normal Saline Flush 0.9% IVP 20 ml PRN PRN Administration After Blood Draw - Lab Result Fish Bone Diagrams: 07/25/19 04:15 07/25/19 04:15 - Additional Planning My Orders: My Active Orders 07/24/19 07:52 Miscellaenous Nursing Order [RC] ONCE 07/24/19 11:22 ABG [Arterial Blood Gases - RT] [RC] .ONCE ABG - ARTERIAL BLOOD GAS [BG] Stat 07/25/19 FOLATE [IAI] Routine VITAMIN B12 [IAI] Routine Subjective - Subjective Patient Reports: Other (lethargic) Nursing Reports: Other (He has been off Versed for a day, and off Propofiol for about 10 hours) Objective Vital Signs: Vital Signs - 24 hr 07/23/19 07/23/19 07/23/19 19:43 20:00 21:00 Temperature Heart Rate 84 Heart Rate [ 84 78 Monitoring electrodes] Respiratory 21 18 Rate Blood Pressure 157/86 H 149/87 H [Left Brachial artery] Blood Pressure 159/67 H [Right ABP] Blood Pressure [Right Radial artery] O2 Saturation 97 98 07/23/19 07/23/19 07/23/19 21:35 22:00 23:00 Temperature Heart Rate 80 Heart Rate [ 77 72 Monitoring electrodes] Respiratory 18 18 Rate Blood Pressure 138/78 H 126/77 [Left Brachial artery] Blood Pressure 151/64 H 140/57 H [Right ABP] Blood Pressure [Right Radial artery] O2 Saturation 99 98 07/23/19 07/23/19 07/24/19 23:05 23:41 00:00 Temperature 36.3 C L Heart Rate 74 Heart Rate [ 76 Monitoring electrodes] Respiratory 19 Rate Blood Pressure 151/81 H [Left Brachial artery] Blood Pressure 157/66 H [Right ABP] Blood Pressure [Right Radial artery] O2 Saturation 98 07/24/19 07/24/19 07/24/19 01:00 01:25 02:00 Temperature Heart Rate 73 Heart Rate [ 76 81 Monitoring electrodes] Respiratory 18 20 Rate Blood Pressure 150/80 H 140/92 H [Left Brachial artery] Blood Pressure 159/65 H 152/67 H [Right ABP] Blood Pressure [Right Radial artery] O2 Saturation 98 99 07/24/19 07/24/19 07/24/19 03:00 03:03 04:00 Temperature 36.8 C Heart Rate 80 Heart Rate [ 77 81 Monitoring electrodes] Respiratory 19 19 Rate Blood Pressure 147/78 H 164/86 H [Left Brachial artery] Blood Pressure [Right ABP] Blood Pressure 165/70 H 176/79 H [Right Radial artery] O2 Saturation 100 99 07/24/19 07/24/19 07/24/19 05:00 05:27 06:00 Temperature Heart Rate 91 Heart Rate [ 82 84 Monitoring electrodes] Respiratory 19 17 Rate Blood Pressure 159/92 H 151/84 H [Left Brachial artery] Blood Pressure [Right ABP] Blood Pressure 178/81 H 170/74 H [Right Radial artery] O2 Saturation 97 98 07/24/19 07/24/19 07/24/19 06:54 07:44 08:00 Temperature 36.9 C Heart Rate 80 Heart Rate [ 78 87 Monitoring electrodes] Respiratory 17 17 Rate Blood Pressure 137/77 H 144/83 H [Left Brachial artery] Blood Pressure [Right ABP] Blood Pressure 161/68 H 169/76 H [Right Radial artery] O2 Saturation 98 97 07/24/19 07/24/19 07/24/19 09:00 09:28 10:00 Temperature Heart Rate 99 Heart Rate [ 94 96 Monitoring electrodes] Respiratory 17 16 Rate Blood Pressure 148/87 H 158/76 H [Left Brachial artery] Blood Pressure [Right ABP] Blood Pressure [Right Radial artery] O2 Saturation 07/24/19 07/24/19 07/24/19 11:00 12:00 13:00 Temperature 36.8 C Heart Rate Heart Rate [ 100 96 107 H Monitoring electrodes] Respiratory 16 18 21 Rate Blood Pressure 130/86 H 131/68 H 127/83 H [Left Brachial artery] Blood Pressure [Right ABP] Blood Pressure 152/73 H [Right Radial artery] O2 Saturation 98 97 99 07/24/19 07/24/19 07/24/19 14:00 14:08 15:00 Temperature Heart Rate 113 H Heart Rate [ 111 H 117 H Monitoring electrodes] Respiratory 28 H 26 H Rate Blood Pressure 134/91 H 129/84 H [Left Brachial artery] Blood Pressure [Right ABP] Blood Pressure 152/75 H [Right Radial artery] O2 Saturation 96 96 07/24/19 07/24/19 07/24/19 15:46 16:00 17:00 Temperature 36.7 C Heart Rate 110 H Heart Rate [ 108 H 110 H Monitoring electrodes] Respiratory 26 H 30 H Rate Blood Pressure 127/85 H 137/91 H [Left Brachial artery] Blood Pressure [Right ABP] Blood Pressure 150/69 H 166/79 H [Right Radial artery] O2 Saturation 96 98 07/24/19 07/24/19 07/24/19 17:33 18:00 19:00 Temperature 36.4 C L Heart Rate 102 H Heart Rate [ 111 H 104 H Monitoring electrodes] Respiratory 26 H 22 Rate Blood Pressure 129/83 H 117/78 [Left Brachial artery] Blood Pressure [Right ABP] Blood Pressure 155/74 H [Right Radial artery] O2 Saturation 98 97 Oxygen O2 Source Mechanical ventilator I&O (Last 24 Hrs): Intake and Output Totals x24h 07/22/19 07/23/19 07/24/19 23:59 23:59 23:59 Intake Total 4306.341 3900.505 3200.942 Output Total 1154 951 934 Balance 3152.341 2949.505 2266.942 General: Other (lethargic, moving neck spontaneously, some biting of ET tube) HEENT: Mucous membr. moist/pink, Other (ET and ng in place) Neck: Supple Neuro: Other (Still lethargic, even off Versed and Propofol) Cardiovascular: Regular rate, No murmurs Respiratory: No respiratory distress, Breath sounds nml Abdomen: Other (Bandaged, no bowel sounds) Extremities: No edema - Results Results: Laboratory Results WBC 7.5 x10^3/uL (4.8-10.8) 07/24/19 04:50 RBC 3.08 10^6/uL (4.70-6.10) L 07/24/19 04:50 Hgb 10.3 g/dL (14.0-18.0) L 07/24/19 04:50 Hct 32.6 % (42.0-52.0) L 07/24/19 04:50 MCV 105.8 fL (80.0-94.0) H 07/24/19 04:50 MCH 33.4 pg (27.0-31.0) H 07/24/19 04:50 MCHC 31.6 g/dL (32.0-36.0) L 07/24/19 04:50 RDW 14.4 % (12.0-15.0) 07/24/19 04:50 Plt Count 165 10^3/uL (130-450) 07/24/19 04:50 MPV 10.2 fL (7.4-11.4) 07/24/19 04:50 Neut # (Auto) 5.2 10^3/uL (1.5-6.6) 07/24/19 04:50 Lymph # (Auto) 0.8 10^3/uL (1.5-3.5) L 07/24/19 04:50 Sawyer # (Auto) 1.2 10^3/uL (0.0-1.0) H 07/24/19 04:50 Eos # (Auto) 0.2 10^3/uL (0.0-0.7) 07/24/19 04:50 Baso # (Auto) 0.0 10^3/uL (0.0-0.1) 07/24/19 04:50 Absolute Nucleated RBC 0.00 x10^3/uL 07/24/19 04:50 Total Counted 100 07/23/19 03:40 Band Neuts % (Manual) 0 % (0-10) 07/23/19 03:40 Abnorm Lymph % (Manual) 0 % 07/23/19 03:40 Nucleated RBC % 0.0 /100WBC 07/24/19 04:50 Neutrophils # (Manual) 4.6 10^3/uL (1.5-6.6) 07/23/19 03:40 Lymphocytes # (Manual) 0.5 10^3/uL (1.5-3.5) L 07/23/19 03:40 Monocytes # (Manual) 0.7 10^3/uL (0.0-1.0) 07/23/19 03:40 Eosinophils # (Manual) 0.1 10^3/uL (0-0.7) 07/23/19 03:40 Basophils # (Manual) 0.0 10^3/uL (0-0.1) 07/23/19 03:40 Differential Comment MANUAL DIFFERENTIAL 07/23/19 03:40 Manual Slide Review Indicated 07/21/19 21:36 WBC Morphology NORMAL APPEARANCE (NORMAL) 07/23/19 03:40 Platelet Estimate NORMAL (130-450,000) (NORMAL) 07/23/19 03:40 Platelet Morphology NORMAL APPEARANCE (NORMAL) 07/23/19 03:40 RBC Morph Micro Appear NORMAL APPEARANCE (NORMAL) 07/22/19 04:35 RBC Morph Micro Appear NORMAL APPEARANCE (NORMAL) 07/23/19 03:40 PT 11.2 secs (9.9-12.6) 07/20/19 13:29 INR 1.0 (0.8-1.2) 07/20/19 13:29 Bld Gas Analysis Time 1119 07/24/19 11:10 Sample Site A-LINE 07/24/19 11:10 ABG pH 7.43 (7.35-7.45) 07/24/19 11:10 ABG pCO2 29 mmHg (34-45) L 07/24/19 11:10 ABG pO2 101 mmHg (80-100) H 07/24/19 11:10 ABG HCO3 19.1 mmol/L (22.0-26.0) L 07/24/19 11:10 ABG Total CO2 20.0 MMOL/L (21.0-29.0) L 07/24/19 11:10 ABG O2 Saturation 97 % (94-98) 07/24/19 11:10 ABG Base Excess -4.1 mmol/L (-2.0-3.0) L 07/24/19 11:10 Horacio Test NOT APPLICABLE 07/24/19 11:10 VBG pH 7.355 (7.31-7.41) 07/24/19 05:00 Ionized Calcium 1.13 mmol/L (1.15-1.33) L 07/24/19 05:00 Respiration Rate 12 b/min 07/23/19 20:24 O2 Delivery Device C-PAP 07/24/19 11:10 Vent Mode SIMV 07/23/19 20:24 FiO2 30.00 07/24/19 11:10 Tidal Volume 500 mL 07/23/19 20:24 PEEP 5 cmH2O 07/24/19 11:10 Pressure Support Vent 10 cmH2O 07/24/19 11:10 Sodium 143 mmol/L (135-145) 07/24/19 04:50 Potassium 3.6 mmol/L (3.5-5.0) 07/24/19 04:50 Chloride 116 mmol/L (101-111) H 07/24/19 04:50 Carbon Dioxide 22 mmol/L (21-32) 07/24/19 04:50 Anion Gap 5.0 (6-13) L 07/24/19 04:50 BUN 22 mg/dL (6-20) H 07/24/19 04:50 Creatinine 0.6 mg/dL (0.6-1.2) 07/24/19 04:50 Estimated GFR (MDRD) 129 (>89) 07/24/19 04:50 Glucose 142 mg/dL (70-100) H 07/24/19 04:50 POC Whole Bld Glucose 111 mg/dL (70 - 100) H 07/24/19 18:16 Lactic Acid 1.4 mmol/L (0.5-2.2) 07/21/19 21:36 Calcium 7.5 mg/dL (8.5-10.3) L 07/24/19 04:50 Phosphorus 1.9 mg/dL (2.5-4.6) L 07/24/19 04:50 Magnesium 2.5 mg/dL (1.7-2.8) 07/24/19 04:50 Total Bilirubin 0.7 mg/dL (0.2-1.0) 07/24/19 04:50 AST 16 IU/L (10-42) 07/24/19 04:50 ALT 34 IU/L (10-60) 07/24/19 04:50 Alkaline Phosphatase 45 IU/L (42-121) 07/24/19 04:50 Total Protein 4.9 g/dL (6.7-8.2) L 07/24/19 04:50 Albumin 2.1 g/dL (3.2-5.5) L 07/24/19 04:50 Globulin 2.8 g/dL (2.1-4.2) 07/24/19 04:50 Albumin/Globulin Ratio 0.8 (1.0-2.2) L 07/24/19 04:50 Amylase 19 U/L (28-100) L 07/22/19 04:35 Lipase 26 U/L (22-51) 07/20/19 13:29 Urine Color DARK YELLOW 07/20/19 23:35 Urine Clarity CLEAR (CLEAR) 07/20/19 23:35 Urine pH 6.5 PH (5.0-7.5) 07/20/19 23:35 Ur Specific Darby <=1.005 (1.002-1.030) 07/20/19 23:35 Urine Protein TRACE mg/dL (NEGATIVE) 07/20/19 23:35 Urine Glucose (UA) NEGATIVE mg/dL (NEGATIVE) 07/20/19 23:35 Urine Ketones 15 mg/dL (NEGATIVE) H 07/20/19 23:35 Urine Occult Blood TRACE-INTA (NEGATIVE) 07/20/19 23:35 Urine Nitrite NEGATIVE (NEGATIVE) 07/20/19 23:35 Urine Bilirubin NEGATIVE (NEGATIVE) 07/20/19 23:35 Urine Urobilinogen 1 (NORMAL) E.U./dL (NORMAL) 07/20/19 23:35 Ur Leukocyte Esterase NEGATIVE (NEGATIVE) 07/20/19 23:35 Ur Microscopic Review NOT INDICATED 07/20/19 23:35 Urine Culture Comments NOT INDICATED 07/20/19 23:35 Nasal Screen MRSA (PCR) NEGATIVE (NEGATIVE) 07/21/19 21:00 Ethyl Alcohol < 5.0 mg/dL 07/20/19 13:29 Sepsis Event Note (H) - Evaluation Current Stage of Sepsis: Ruled out
[2019-07-25] MEDS: D5.45NS W/20 MEQ KCL 1,000 ML IV SCH ×2 (00:34→14:20)
[2019-07-25] MEDS: PIPERACILLIN/TAZOBACTAM 3.375 GM in SODIUM CHLORIDE 0.9% MINIBAG 100 ML IV SCH ×3 (00:35→17:14)
[2019-07-25] MEDS: SODIUM CHLORIDE FLUSH 0.9% 10 ML SYRINGE IVP SCH ×6 (00:40→17:54)
[2019-07-25 05:14] LABS: BASOPHILS % (AUTO) 0.1 %; EOSINOPHILS # (AUTO) 0.2 10^3/uL (0.0-0.7); EOSINOPHILS % (AUTO) 2.7 %; HGB - HEMOGLOBIN 10.2 g/dL (14.0-18.0); LYMPHOCYTES % (AUTO) 12.7 %; MEAN CORPUSCULAR HEMOGLOBIN 33.6 pg (27.0-31.0); MEAN CORPUSCULAR VOLUME 104.9 fL (80.0-94.0); MEAN PLATELET VOLUME 10.2 fL (7.4-11.4); MONOCYTES # (AUTO) 1.3 10^3/uL (0.0-1.0); MONOCYTES % (AUTO) 16.3 %; NEUTROPHILS # (AUTO) 5.4 10^3/uL (1.5-6.6); NEUTROPHILS % (AUTO) 67.6 %; PLT - PLATELET COUNT 194 10^3/uL (130-450); RED BLOOD COUNT 3.04 10^6/uL (4.70-6.10); RED CELL DISTRIBUTION WIDTH 14.4 % (12.0-15.0)
[2019-07-25 05:28] LABS: ALBUMIN/GLOBULIN RATIO 0.7 (1.0-2.2); BILIRUBIN,TOTAL 0.5 mg/dL (0.2-1.0); CALCIUM 7.4 mg/dL (8.5-10.3); CREATININE 0.5 mg/dL (0.6-1.2); MAGNESIUM 2.2 mg/dL (1.7-2.8); TOTAL PROTEIN 4.9 g/dL (6.7-8.2)
[2019-07-25] MEDS: metroNIDAZOLE 500 MG/100 ML 500 MG/100 ML BAG IV SCH (05:50)
[2019-07-25 05:53] LABS: VBG PH 7.444 (7.31-7.41)
[2019-07-25] MEDS: PANTOPRAZOLE 40 MG VIAL IVP SCH (06:13)
[2019-07-25] MEDS ORDERED: POTASSIUM PHOSPHATE 15 MMOL in SODIUM CHLORIDE 0.9% 250 ML IV ONE (08:30)
--- NOTE | 2019-07-25 08:58 | PROVIDER PROGRESS NOTE ---
Subjective - General Admit Date: 07/20/19 Procedure Date: 07/21/19 Post Op Days: 4 Procedure Performed: Exploratory Laparotomy with total abdominal colectomy and Dang's pouch - Review of Systems Wound/Incisions: positive: Dressing dry and intact General: positive: No symptoms (On ventillator) Pulmonary: positive: Other (Ventillator) Cardiovascular: positive: No symptoms Gastrointestinal: positive: Other (Ileostomy beginning to function) Genitourinary: positive: Other (Kern cath output 20-30ml/hr Scrotal edema) Skin: positive: No symptoms Objective - Patient Data Vital Signs: Vital Signs x48h Temp Pulse Pulse Resp BP BP Pulse Ox 07/25/19 08:00 36.9 C 96 95 18 145/71 H 98 07/25/19 07:00 101 H 19 112/76 99 07/25/19 06:00 99 18 117/80 99 07/25/19 05:05 89 07/25/19 05:00 94 20 110/76 98 07/25/19 04:00 37.0 C 91 17 118/83 H 98 07/25/19 03:00 98 21 116/79 97 07/25/19 02:30 105 H 07/25/19 02:00 106 H 22 111/72 98 07/25/19 01:00 98 20 110/78 98 07/25/19 00:50 95 Weight: Weight 07/23/19 07/24/19 07/25/19 23:59 23:59 23:59 Weight (kg) 77.5 kg 78.5 kg 82.5 kg Intake & Output: Intake and Output Totals x24h 07/23/19 07/24/19 07/25/19 23:59 23:59 23:59 Intake Total 3900.505 3430.942 1035.797 Output Total 951 1067 607 Balance 2949.505 2363.942 428.797 - Lab Results Lab Results: 07/25/19 04:15 07/25/19 04:15 Other Lab Results: Lab Results x24hrs 07/25/19 07/25/19 07/25/19 Range/Units 05:26 04:15 04:15 WBC (4.8-10.8) x10^3/uL RBC (4.70-6.10) 10^6/uL Hgb (14.0-18.0) g/dL Hct (42.0-52.0) % MCV (80.0-94.0) fL MCH (27.0-31.0) pg MCHC (32.0-36.0) g/dL RDW (12.0-15.0) % Plt Count (130-450) 10^3/uL MPV (7.4-11.4) fL Neut # (Auto) (1.5-6.6) 10^3/uL Lymph # (Auto) (1.5-3.5) 10^3/uL [place] # (Auto) (0.0-1.0) 10^3/uL Eos # (Auto) (0.0-0.7) 10^3/uL Baso # (Auto) (0.0-0.1) 10^3/uL Absolute Nucleated RBC x10^3/uL Nucleated RBC % /100WBC Bld Gas Analysis Time Sample Site ABG pH (7.35-7.45) ABG pCO2 (34-45) mmHg ABG pO2 (80-100) mmHg ABG HCO3 (22.0-26.0) mmol/L ABG Total CO2 (21.0-29.0) MMOL/L ABG O2 Saturation (94-98) % ABG Base Excess (-2.0-3.0) mmol/L Horacio Test VBG pH 7.444 H (7.31-7.41) Ionized Calcium 1.12 L (1.15-1.33) mmol/L O2 Delivery Device FiO2 PEEP cmH2O Pressure Support Vent cmH2O Sodium (135-145) mmol/L Potassium (3.5-5.0) mmol/L Chloride (101-111) mmol/L Carbon Dioxide (21-32) mmol/L Anion Gap (6-13) BUN (6-20) mg/dL Creatinine (0.6-1.2) mg/dL Estimated GFR (MDRD) (>89) Glucose (70-100) mg/dL POC Whole Bld Glucose 137 H (70 - 100) mg/dL Calcium (8.5-10.3) mg/dL Phosphorus (2.5-4.6) mg/dL Magnesium (1.7-2.8) mg/dL Total Bilirubin (0.2-1.0) mg/dL AST (10-42) IU/L ALT (10-60) IU/L Alkaline Phosphatase (42-121) IU/L Total Protein (6.7-8.2) g/dL Albumin (3.2-5.5) g/dL Globulin (2.1-4.2) g/dL Albumin/Globulin Ratio (1.0-2.2) Vitamin B12 488 (180-914) pg/mL Folate 26.00 (5.90 - >24.8) ng/mL 07/25/19 07/25/19 07/24/19 Range/Units 04:15 04:15 23:55 WBC 8.0 (4.8-10.8) x10^3/uL RBC 3.04 L (4.70-6.10) 10^6/uL Hgb 10.2 L (14.0-18.0) g/dL Hct 31.9 L (42.0-52.0) % MCV 104.9 H (80.0-94.0) fL MCH 33.6 H (27.0-31.0) pg MCHC 32.0 (32.0-36.0) g/dL RDW 14.4 (12.0-15.0) % Plt Count 194 (130-450) 10^3/uL MPV 10.2 (7.4-11.4) fL Neut # (Auto) 5.4 (1.5-6.6) 10^3/uL Lymph # (Auto) 1.0 L (1.5-3.5) 10^3/uL Wilbarger # (Auto) 1.3 H (0.0-1.0) 10^3/uL Eos # (Auto) 0.2 (0.0-0.7) 10^3/uL Baso # (Auto) 0.0 (0.0-0.1) 10^3/uL Absolute Nucleated RBC 0.00 x10^3/uL Nucleated RBC % 0.0 /100WBC Bld Gas Analysis Time Sample Site ABG pH (7.35-7.45) ABG pCO2 (34-45) mmHg ABG pO2 (80-100) mmHg ABG HCO3 (22.0-26.0) mmol/L ABG Total CO2 (21.0-29.0) MMOL/L ABG O2 Saturation (94-98) % ABG Base Excess (-2.0-3.0) mmol/L Horacio Test VBG pH (7.31-7.41) Ionized Calcium (1.15-1.33) mmol/L O2 Delivery Device FiO2 PEEP cmH2O Pressure Support Vent cmH2O Sodium 143 (135-145) mmol/L Potassium 3.6 (3.5-5.0) mmol/L Chloride 117 H (101-111) mmol/L Carbon Dioxide 19 L (21-32) mmol/L Anion Gap 7.0 (6-13) BUN 16 (6-20) mg/dL Creatinine 0.5 L (0.6-1.2) mg/dL Estimated GFR (MDRD) 159 (>89) Glucose 136 H (70-100) mg/dL POC Whole Bld Glucose 123 H (70 - 100) mg/dL Calcium 7.4 L (8.5-10.3) mg/dL Phosphorus 2.0 L (2.5-4.6) mg/dL Magnesium 2.2 (1.7-2.8) mg/dL Total Bilirubin 0.5 (0.2-1.0) mg/dL AST 21 (10-42) IU/L ALT 28 (10-60) IU/L Alkaline Phosphatase 48 (42-121) IU/L Total Protein 4.9 L (6.7-8.2) g/dL Albumin 2.0 L (3.2-5.5) g/dL Globulin 2.9 (2.1-4.2) g/dL Albumin/Globulin Ratio 0.7 L (1.0-2.2) Vitamin B12 (180-914) pg/mL Folate (5.90 - >24.8) ng/mL 07/24/19 07/24/19 07/24/19 Range/Units 18:16 11:59 11:10 WBC (4.8-10.8) x10^3/uL RBC (4.70-6.10) 10^6/uL Hgb (14.0-18.0) g/dL Hct (42.0-52.0) % MCV (80.0-94.0) fL MCH (27.0-31.0) pg MCHC (32.0-36.0) g/dL RDW (12.0-15.0) % Plt Count (130-450) 10^3/uL MPV (7.4-11.4) fL Neut # (Auto) (1.5-6.6) 10^3/uL Lymph # (Auto) (1.5-3.5) 10^3/uL [place] # (Auto) (0.0-1.0) 10^3/uL Eos # (Auto) (0.0-0.7) 10^3/uL Baso # (Auto) (0.0-0.1) 10^3/uL Absolute Nucleated RBC x10^3/uL Nucleated RBC % /100WBC Bld Gas Analysis Time 1119 Sample Site A-LINE ABG pH 7.43 (7.35-7.45) ABG pCO2 29 L (34-45) mmHg ABG pO2 101 H (80-100) mmHg ABG HCO3 19.1 L (22.0-26.0) mmol/L ABG Total CO2 20.0 L (21.0-29.0) MMOL/L ABG O2 Saturation 97 (94-98) % ABG Base Excess -4.1 L (-2.0-3.0) mmol/L Horacio Test NOT APPLICABLE VBG pH (7.31-7.41) Ionized Calcium (1.15-1.33) mmol/L O2 Delivery Device C-PAP FiO2 30.00 PEEP 5 cmH2O Pressure Support Vent 10 cmH2O Sodium (135-145) mmol/L Potassium (3.5-5.0) mmol/L Chloride (101-111) mmol/L Carbon Dioxide (21-32) mmol/L Anion Gap (6-13) BUN (6-20) mg/dL Creatinine (0.6-1.2) mg/dL Estimated GFR (MDRD) (>89) Glucose (70-100) mg/dL POC Whole Bld Glucose 111 H 110 H (70 - 100) mg/dL Calcium (8.5-10.3) mg/dL Phosphorus (2.5-4.6) mg/dL Magnesium (1.7-2.8) mg/dL Total Bilirubin (0.2-1.0) mg/dL AST (10-42) IU/L ALT (10-60) IU/L Alkaline Phosphatase (42-121) IU/L Total Protein (6.7-8.2) g/dL Albumin (3.2-5.5) g/dL Globulin (2.1-4.2) g/dL Albumin/Globulin Ratio (1.0-2.2) Vitamin B12 (180-914) pg/mL Folate (5.90 - >24.8) ng/mL - Current Medications Current Medications: Current Medications Generic Name Dose Route Start Last Admin Trade Name Freq PRN Reason Stop Dose Admin Chlorhexidine Gluconate 15 ml 07/22/19 09:00 07/24/19 20:58 Peridex PO 15 ml BID BRO Administration Enoxaparin Sodium 40 mg 07/21/19 09:00 07/24/19 08:43 Lovenox SUBQ 40 mg DAILY BRO Administration Heparin Sodium (Beef Lung) 30 - 50 unit 07/23/19 00:19 07/24/19 04:49 IVP 30 unit PRN PRN Administration Central Line Protocol (<24 hr) Multivitamins 10 ml/ Thiamine 1,011.2 mls @ 100 mls/hr 07/21/19 09:30 07/24/19 19:17 HCl 100 mg/ Folic Acid 1 mg/ IV Infused Sodium Chloride DAILY BRO Infusion Potassium Chloride/Dextrose/Sod Cl 1,000 mls @ 75 mls/hr 07/21/19 14:24 07/25/19 00:34 D5.45ns W/20 Meq Kcl IV 75 mls/hr .[id number] BRO Administration Metronidazole 500 mg in 100 mls @ 100 mls/hr 07/21/19 22:00 07/25/19 06:59 Flagyl 500 Mg/100 Ml IV Infused Q8HR BRO Infusion Propofol 100 mls @ 4.23 mls/hr 07/21/19 22:00 07/25/19 08:15 Diprivan IV 0 mcg/kg/min .[id number] BRO 0 mls/hr Titration Protocol 10 MCG/KG/MIN Sodium Chloride 500 mls @ 0 mls/hr 07/21/19 21:49 07/24/19 15:42 Normal Saline 0.9% IV 20 mls/hr Q24H PRN Administration TKO RATE TKO Piperacillin Sod/Tazobactam 100 mls @ 25 mls/hr 07/22/19 09:00 07/25/19 04:42 Sod 3.375 gm/ Sodium Chloride IV Infused Q8H BRO Infusion Sodium Chloride 500 mls @ 0 mls/hr 07/22/19 08:25 07/23/19 10:00 Normal Saline 0.9% IV Infused Q24H PRN Infusion TKO RATE TKO Lorazepam 1 mg 07/21/19 08:48 07/21/19 22:20 Ativan Inj (Vial) IVP 1 mg Q1H PRN Administration CIWA >8 Protocol Morphine Sulfate 2 mg 07/20/19 16:12 07/24/19 22:36 Morphine (Carpuject) IVP 2 mg Q2HR PRN Administration Pain 8 to 10 Multi-Ingred Cream/Lotion/Oil/Oint 1 applic 07/23/19 13:33 07/23/19 14:32 Lubrifresh Pm Ophth Oint EACHEYE 1 applic QPM PRN Administration Dry Eye Pantoprazole Sodium 40 mg 07/22/19 07:00 07/25/19 06:13 Protonix IVP 40 mg QDAC BRO Administration Sodium Chloride 10 ml 07/20/19 16:12 07/24/19 06:35 Normal Saline Flush 0.9% IVP 10 ml PRN PRN Administration NEEDED PER PROVIDER ORDERS Sodium Chloride 10 ml 07/21/19 01:00 07/25/19 00:40 Normal Saline Flush 0.9% IVP 10 ml 0100,0900,1700 BRO Administration Sodium Chloride 10 ml 07/22/19 01:00 07/25/19 00:40 Normal Saline Flush 0.9% IVP 10 ml 0100,0900,1700 BRO Administration Sodium Chloride 10 ml 07/21/19 21:06 07/23/19 18:38 Normal Saline Flush 0.9% IVP 10 ml PRN PRN Administration NEEDED PER PROVIDER ORDERS Sodium Chloride 20 ml 07/21/19 21:49 07/24/19 04:49 Normal Saline Flush 0.9% IVP 20 ml PRN PRN Administration After Blood Draw - Physical Exam General Appearance: positive: Lethargic Respiratory: positive: Other (Vent) Abdomen: positive: No distention, Other (Ilostomy functional Dressing clean and dry) Impression/Plan - Problem List Problem List: Attempt wean as per Hospitalist recommendations.
[2019-07-25] MEDS: MULTIVITAMIN 10 ML, THIAMINE INJ 100 MG, FOLIC ACID INJ 1 MG in SODIUM CHLORIDE 0.9% 1,... IV SCH (09:01)
[2019-07-25] MEDS: CHLORHEXIDINE GLUCONATE 15 ML UDC PO SCH ×2 (09:30→20:41)
[2019-07-25] MEDS: ENOXAPARIN 40 MG/0.4 ML SYRINGE SUBQ SCH (09:30)
--- NOTE | 2019-07-25 10:10 | PROVIDER PROGRESS NOTE ---
Subjective - Prog Note Date Prog Note Date: 07/25/19 - Subjective Subjective: He remains intubated but is off of sedation and is following commands. He denies any abdominal pain. Current Medications - Current Medications Current Medications: Active Medications Acetaminophen (Tylenol) 650 mg PO Q4HR PRN PRN Reason: Pain 1 to 4 Albuterol () 2.5 mg INH RTQ4H PRN PRN Reason: Wheezing Albuterol/Ipratropium (Duoneb) 3 ml INH RTQID PRN PRN Reason: Shortness of Air/Wheezing Chlorhexidine Gluconate (Peridex) 15 ml PO BID [facility] Last Admin: 07/25/19 09:30 Dose: 15 ml Enoxaparin Sodium (Lovenox) 40 mg SUBQ DAILY [facility] Last Admin: 07/25/19 09:30 Dose: 40 mg Heparin Sodium (Beef Lung) () 30 - 50 unit IVP PRN PRN PRN Reason: Central Line Protocol (<24 hr) Last Admin: 07/24/19 04:49 Dose: 30 unit Hydralazine HCl (Apresoline Inj) 10 mg IVP QID PRN PRN Reason: Hypertensive Emergency Multivitamins 10 ml/ Thiamine HCl 100 mg/ Folic Acid 1 mg/Sodium Chloride 1,011.2 mls @ 100 mls/hr IV DAILY [facility] Last Admin: 07/25/19 09:01 Dose: 100 mls/hr Potassium Chloride/Dextrose/Sod Cl (D5.45ns W/20 Meq Kcl) 1,000 mls @ 75 mls/hr IV .[id number] [facility] Last Admin: 07/25/19 00:34 Dose: 75 mls/hr Propofol (Diprivan) 100 mls @ 4.23 mls/hr IV .[id number] [facility]; Protocol Last Titration: 07/25/19 08:15 Dose: 0 mcg/kg/min, 0 mls/hr Sodium Chloride (Normal Saline 0.9%) 500 mls @ 0 mls/hr IV Q24H PRN PRN Reason: TKO RATE Last Admin: 07/24/19 15:42 Dose: 20 mls/hr Piperacillin Sod/Tazobactam (Sod 3.375 gm/ Sodium Chloride) 100 mls @ 25 mls/hr IV Q8H [facility] Last Admin: 07/25/19 09:30 Dose: 25 mls/hr Sodium Chloride (Normal Saline 0.9%) 500 mls @ 0 mls/hr IV Q24H PRN PRN Reason: TKO RATE Last Infusion: 07/23/19 10:00 Dose: Infused Potassium Phosphate 15 mmol/ (Sodium Chloride) 255 mls @ 63 mls/hr IV ONCE ONE; Protocol Stop: 07/25/19 12:32 Last Admin: 07/25/19 09:01 Dose: 63 mls/hr Lorazepam (Ativan Inj (Vial)) 1 mg IVP Q1H PRN; Protocol PRN Reason: CIWA >8 Last Admin: 07/21/19 22:20 Dose: 1 mg Metoprolol Tartrate (Lopressor Inj) 5 mg IVP Q6H PRN PRN Reason: Hypertensive Emergency Morphine Sulfate (Morphine (Carpuject)) 2 mg IVP Q2HR PRN PRN Reason: Pain 8 to 10 Last Admin: 07/24/19 22:36 Dose: 2 mg Multi-Ingred Cream/Lotion/Oil/Oint (Lubrifresh Pm Ophth Oint) 1 applic EACHEYE QPM PRN PRN Reason: Dry Eye Last Admin: 07/23/19 14:32 Dose: 1 applic Ondansetron HCl (Zofran Inj) 4 mg IVP Q6HR PRN PRN Reason: Nausea / Vomiting Pantoprazole Sodium (Protonix) 40 mg IVP QDAC [facility] Last Admin: 07/25/19 06:13 Dose: 40 mg Sodium Chloride (Normal Saline Flush 0.9%) 10 ml IVP PRN PRN PRN Reason: NEEDED PER PROVIDER ORDERS Last Admin: 07/24/19 06:35 Dose: 10 ml Sodium Chloride (Normal Saline Flush 0.9%) 10 ml IVP 0100,0900,1700 [facility] Last Admin: 07/25/19 09:31 Dose: 10 ml Sodium Chloride (Normal Saline Flush 0.9%) 10 ml IVP 0100,0900,1700 [facility] Last Admin: 07/25/19 09:32 Dose: Not Given Sodium Chloride (Normal Saline Flush 0.9%) 10 ml IVP PRN PRN PRN Reason: NEEDED PER PROVIDER ORDERS Sodium Chloride (Normal Saline Flush 0.9%) 10 ml IVP PRN PRN PRN Reason: NEEDED PER PROVIDER ORDERS Last Admin: 07/23/19 18:38 Dose: 10 ml Sodium Chloride (Normal Saline Flush 0.9%) 20 ml IVP PRN PRN PRN Reason: After Blood Draw Last Admin: 07/24/19 04:49 Dose: 20 ml Aspirin [Aspirin EC] 81 mg PO DAILY 09/09/17 Atorvastatin [Lipitor] 10 mg PO DAILY 09/09/17 Calcium Carbonate/Vitamin D3 [Calcium 500-Vit D3 600 Caplet] 1 tab PO DAILY 1 11/10/16 Carvedilol Phosphate [Coreg Cr] 40 mg PO DAILY 09/09/17 Doxycycline Hyclate 50 mg PO DAILY 09/09/17 Krill Oil/[place]-3/Dha/Epa [[place]-3 Krill Oil Softgel] 1 cap PO DAILY 09/09/17 Lutein/Zeaxanthin [Ocuvite Lutein 25-5 mg Softgel] 1 cap PO DAILY 09/09/17 Ubidecarenone [Co Q-10] 300 mg PO DAILY 09/09/17 dilTIAZem HCl [Diltiazem 24Hr Cd] 300 mg PO DAILY 09/09/17 L. Acidophilus/L. Rhamnosus [Probiotic 15 Billion Cell Cap] 1 each PO DAILY 07/21/19 Lisinopril [Prinivil] 20 mg PO BID 07/21/19 Multivitamin,Therapeutic [Thera] 1 each PO DAILY 07/21/19 Objective - Vital Signs/Intake & Output Reviewed Vital Signs: Yes Vital Signs: Vital Signs x48h Temp Pulse Pulse Resp BP BP Pulse Ox 07/25/19 09:20 101 H 07/25/19 08:00 36.9 C 96 95 18 145/71 H 98 07/25/19 07:00 101 H 19 112/76 99 07/25/19 06:00 99 18 117/80 99 07/25/19 05:05 89 07/25/19 05:00 94 20 110/76 98 07/25/19 04:00 37.0 C 91 17 118/83 H 98 07/25/19 03:00 98 21 116/79 97 07/25/19 02:30 105 H Intake & Output: Intake & Output 07/22/19 07/23/19 07/24/19 07/25/19 23:59 23:59 23:59 23:59 Intake Total 4306.341 3900.505 3430.942 1035.797 Output Total 7151 577 8000 647 Balance 3152.341 2949.505 2363.942 388.797 - Objective General Appearance: positive: Alert, Other (Following commands.) Eyes Bilateral: positive: Normal inspection ENT: positive: ENT inspection nml, Other (NG tube in place.) Neck: positive: Nml inspection Respiratory: positive: No respiratory distress. negative: Wheezes, Rales, Rhonchi Cardiovascular: positive: No murmur, Tachycardia. negative: Bradycardia, Systolic murmur, Diastolic murmur Abdomen: positive: Non-tender, Nml bowel sounds, Bruit (Ilesotomy in place over the right lower quadrant. Dressing in place.). negative: No distention, Tenderness, Guarding, Rebound Skin: positive: No rash, Warm, Dry Extremities: positive: Full ROM, No pedal edema Neurologic/Psychiatric: positive: Other (No focal mot deficits. Following commands and able to give a thumbs up when asked.) - Lab Results Fish Bones: 07/25/19 04:15 07/25/19 04:15 Other Labs: Lab Results x24hrs 07/25/19 07/25/19 07/25/19 Range/Units 05:26 04:15 04:15 WBC (4.8-10.8) x10^3/uL RBC (4.70-6.10) 10^6/uL Hgb (14.0-18.0) g/dL Hct (42.0-52.0) % MCV (80.0-94.0) fL MCH (27.0-31.0) pg MCHC (32.0-36.0) g/dL RDW (12.0-15.0) % Plt Count (130-450) 10^3/uL MPV (7.4-11.4) fL Neut # (Auto) (1.5-6.6) 10^3/uL Lymph # (Auto) (1.5-3.5) 10^3/uL [place] # (Auto) (0.0-1.0) 10^3/uL Eos # (Auto) (0.0-0.7) 10^3/uL Baso # (Auto) (0.0-0.1) 10^3/uL Absolute Nucleated RBC x10^3/uL Nucleated RBC % /100WBC Bld Gas Analysis Time Sample Site ABG pH (7.35-7.45) ABG pCO2 (34-45) mmHg ABG pO2 (80-100) mmHg ABG HCO3 (22.0-26.0) mmol/L ABG Total CO2 (21.0-29.0) MMOL/L ABG O2 Saturation (94-98) % ABG Base Excess (-2.0-3.0) mmol/L Horacio Test VBG pH 7.444 H (7.31-7.41) Ionized Calcium 1.12 L (1.15-1.33) mmol/L O2 Delivery Device FiO2 PEEP cmH2O Pressure Support Vent cmH2O Sodium (135-145) mmol/L Potassium (3.5-5.0) mmol/L Chloride (101-111) mmol/L Carbon Dioxide (21-32) mmol/L Anion Gap (6-13) BUN (6-20) mg/dL Creatinine (0.6-1.2) mg/dL Estimated GFR (MDRD) (>89) Glucose (70-100) mg/dL POC Whole Bld Glucose 137 H (70 - 100) mg/dL Calcium (8.5-10.3) mg/dL Phosphorus (2.5-4.6) mg/dL Magnesium (1.7-2.8) mg/dL Total Bilirubin (0.2-1.0) mg/dL AST (10-42) IU/L ALT (10-60) IU/L Alkaline Phosphatase (42-121) IU/L Total Protein (6.7-8.2) g/dL Albumin (3.2-5.5) g/dL Globulin (2.1-4.2) g/dL Albumin/Globulin Ratio (1.0-2.2) Vitamin B12 488 (180-914) pg/mL Folate 26.00 (5.90 - >24.8) ng/mL 07/25/19 07/25/19 07/24/19 Range/Units 04:15 04:15 23:55 WBC 8.0 (4.8-10.8) x10^3/uL RBC 3.04 L (4.70-6.10) 10^6/uL Hgb 10.2 L (14.0-18.0) g/dL Hct 31.9 L (42.0-52.0) % MCV 104.9 H (80.0-94.0) fL MCH 33.6 H (27.0-31.0) pg MCHC 32.0 (32.0-36.0) g/dL RDW 14.4 (12.0-15.0) % Plt Count 194 (130-450) 10^3/uL MPV 10.2 (7.4-11.4) fL Neut # (Auto) 5.4 (1.5-6.6) 10^3/uL Lymph # (Auto) 1.0 L (1.5-3.5) 10^3/uL [place] # (Auto) 1.3 H (0.0-1.0) 10^3/uL Eos # (Auto) 0.2 (0.0-0.7) 10^3/uL Baso # (Auto) 0.0 (0.0-0.1) 10^3/uL Absolute Nucleated RBC 0.00 x10^3/uL Nucleated RBC % 0.0 /100WBC Bld Gas Analysis Time Sample Site ABG pH (7.35-7.45) ABG pCO2 (34-45) mmHg ABG pO2 (80-100) mmHg ABG HCO3 (22.0-26.0) mmol/L ABG Total CO2 (21.0-29.0) MMOL/L ABG O2 Saturation (94-98) % ABG Base Excess (-2.0-3.0) mmol/L Horacio Test VBG pH (7.31-7.41) Ionized Calcium (1.15-1.33) mmol/L O2 Delivery Device FiO2 PEEP cmH2O Pressure Support Vent cmH2O Sodium 143 (135-145) mmol/L Potassium 3.6 (3.5-5.0) mmol/L Chloride 117 H (101-111) mmol/L Carbon Dioxide 19 L (21-32) mmol/L Anion Gap 7.0 (6-13) BUN 16 (6-20) mg/dL Creatinine 0.5 L (0.6-1.2) mg/dL Estimated GFR (MDRD) 159 (>89) Glucose 136 H (70-100) mg/dL POC Whole Bld Glucose 123 H (70 - 100) mg/dL Calcium 7.4 L (8.5-10.3) mg/dL Phosphorus 2.0 L (2.5-4.6) mg/dL Magnesium 2.2 (1.7-2.8) mg/dL Total Bilirubin 0.5 (0.2-1.0) mg/dL AST 21 (10-42) IU/L ALT 28 (10-60) IU/L Alkaline Phosphatase 48 (42-121) IU/L Total Protein 4.9 L (6.7-8.2) g/dL Albumin 2.0 L (3.2-5.5) g/dL Globulin 2.9 (2.1-4.2) g/dL Albumin/Globulin Ratio 0.7 L (1.0-2.2) Vitamin B12 (180-914) pg/mL Folate (5.90 - >24.8) ng/mL 07/24/19 07/24/19 07/24/19 Range/Units 18:16 11:59 11:10 WBC (4.8-10.8) x10^3/uL RBC (4.70-6.10) 10^6/uL Hgb (14.0-18.0) g/dL Hct (42.0-52.0) % MCV (80.0-94.0) fL MCH (27.0-31.0) pg MCHC (32.0-36.0) g/dL RDW (12.0-15.0) % Plt Count (130-450) 10^3/uL MPV (7.4-11.4) fL Neut # (Auto) (1.5-6.6) 10^3/uL Lymph # (Auto) (1.5-3.5) 10^3/uL [place] # (Auto) (0.0-1.0) 10^3/uL Eos # (Auto) (0.0-0.7) 10^3/uL Baso # (Auto) (0.0-0.1) 10^3/uL Absolute Nucleated RBC x10^3/uL Nucleated RBC % /100WBC Bld Gas Analysis Time 1119 Sample Site A-LINE ABG pH 7.43 (7.35-7.45) ABG pCO2 29 L (34-45) mmHg ABG pO2 101 H (80-100) mmHg ABG HCO3 19.1 L (22.0-26.0) mmol/L ABG Total CO2 20.0 L (21.0-29.0) MMOL/L ABG O2 Saturation 97 (94-98) % ABG Base Excess -4.1 L (-2.0-3.0) mmol/L Horacio Test NOT APPLICABLE VBG pH (7.31-7.41) Ionized Calcium (1.15-1.33) mmol/L O2 Delivery Device C-PAP FiO2 30.00 PEEP 5 cmH2O Pressure Support Vent 10 cmH2O Sodium (135-145) mmol/L Potassium (3.5-5.0) mmol/L Chloride (101-111) mmol/L Carbon Dioxide (21-32) mmol/L Anion Gap (6-13) BUN (6-20) mg/dL Creatinine (0.6-1.2) mg/dL Estimated GFR (MDRD) (>89) Glucose (70-100) mg/dL POC Whole Bld Glucose 111 H 110 H (70 - 100) mg/dL Calcium (8.5-10.3) mg/dL Phosphorus (2.5-4.6) mg/dL Magnesium (1.7-2.8) mg/dL Total Bilirubin (0.2-1.0) mg/dL AST (10-42) IU/L ALT (10-60) IU/L Alkaline Phosphatase (42-121) IU/L Total Protein (6.7-8.2) g/dL Albumin (3.2-5.5) g/dL Globulin (2.1-4.2) g/dL Albumin/Globulin Ratio (1.0-2.2) Vitamin B12 (180-914) pg/mL Folate (5.90 - >24.8) ng/mL ABX Reporting Has patient been on IV antibiotics over the past 48 hours?: Yes Sepsis Event Note (H) - Evaluation Current Stage of Sepsis: Ruled out Assessment/Plan - Problem List (1) Bowel obstruction Impression: He is now status post colectomy on . Concern for sigmoid colon cancer clinically. We will continue empiric antibiotic coverage with Zosyn. Continue pain control with morphine IV as needed. Will discuss with general surgery regarding starting trickle tube feeds. Follow up pathology. Qualifiers: Intestinal obstruction extent: unspecified extent Qualified Code(s): K56 .609 - Unspecified intestinal obstruction, unspecified as to partial versus complete obstruction (2) On mechanically assisted ventilation Impression: His vent settings are minimal and he is awake and following commands today. We will plan for extubation after a short weaning trial. Encourage spirometry use post extubation. PT consult. (3) HTN (hypertension) Impression: We will continue to hold his home lisinopril and carvedilol. Will use IV hydralazine as needed. Will resume his home oral antihypertensives once he is taking PO.
[2019-07-25] MEDS: MORPHINE 2 MG/ML CARPUJECT IVP PRN ×2 (15:31→20:41)
[2019-07-25] MEDS ORDERED: LACTATED RINGERS 500 ML IV ONE (16:54)
[2019-07-25] MEDS ORDERED: LACTATED RINGERS 0 ML IV ONE (17:14)
[2019-07-25] MEDS ORDERED: METOPROLOL 5 MG/5 ML VIAL IVP PRN (18:44)
[2019-07-25] MEDS: LORazepam 2 MG/ML VIAL IVP PRN (19:45)
[2019-07-25 22:57] LABS: ABG BASE EXCESS -5.5 mmol/L (-2.0-3.0); ABG HCO3 18.3 mmol/L (22.0-26.0); ABG OXYGEN SATURATION 96 % (94-98); ABG PCO2 31 mmHg (34-45); ABG PO2 82 mmHg (80-100); ABG TCO2 19.2 MMOL/L (21.0-29.0); ALLEN TEST POSITIVE
[2019-07-26] MEDS: MORPHINE 2 MG/ML CARPUJECT IVP PRN ×3 (01:03→23:33)
[2019-07-26] MEDS: PIPERACILLIN/TAZOBACTAM 3.375 GM in SODIUM CHLORIDE 0.9% MINIBAG 100 ML IV SCH ×3 (01:03→16:37)
[2019-07-26] MEDS: SODIUM CHLORIDE FLUSH 0.9% 10 ML SYRINGE IVP SCH ×7 (01:03→20:32)
[2019-07-26] MEDS: SODIUM CHLORIDE FLUSH 0.9% 10 ML SYRINGE IVP PRN ×3 (04:25→23:34)
[2019-07-26 04:52] LABS: BASOPHILS % (AUTO) 0.3 %; EOSINOPHILS % (AUTO) 0.1 %; HGB - HEMOGLOBIN 10.6 g/dL (14.0-18.0); LYMPHOCYTES % (AUTO) 7.4 %; MEAN CORPUSCULAR HEMOGLOBIN 34.3 pg (27.0-31.0); MEAN CORPUSCULAR HGB CONC 31.9 g/dL (32.0-36.0); MEAN CORPUSCULAR VOLUME 107.4 fL (80.0-94.0); MONOCYTES % (AUTO) 15.5 %; NEUTROPHILS % (AUTO) 75.8 %; PLT - PLATELET COUNT 236 10^3/uL (130-450); RED BLOOD COUNT 3.09 10^6/uL (4.70-6.10); RED CELL DISTRIBUTION WIDTH 14.5 % (12.0-15.0); WHITE BLOOD COUNT 11.7 x10^3/uL (4.8-10.8)
[2019-07-26 04:58] LABS: ABNORMAL LYMPHS % (MANUAL) 0 %
[2019-07-26 05:05] LABS: CALCIUM 7.8 mg/dL (8.5-10.3); CREATININE 0.8 mg/dL (0.6-1.2); MAGNESIUM 2.2 mg/dL (1.7-2.8)
[2019-07-26 05:15] LABS: BAND NEUTROPHILS % (MANUAL) 7 %; DIFFERENTIAL COMMENT MANUAL DIFFERENTIAL; LYMPHOCYTES # (MANUAL) 0.5 10^3/uL (1.5-3.5); LYMPHOCYTES % (MANUAL) 4 %; MONOCYTES # (MANUAL) 0.9 10^3/uL (0.0-1.0); PLATELET ESTIMATE, MANUAL NORMAL (130-450,000) (NORMAL); RBC MORPHOLOGY (MULTIPLE) NORMAL APPEARANCE (NORMAL)
[2019-07-26] MEDS: D5.45NS W/20 MEQ KCL 1,000 ML IV SCH (05:23)
[2019-07-26] MEDS: PANTOPRAZOLE 40 MG VIAL IVP SCH (06:06)
--- NOTE | 2019-07-26 08:12 | XRAY Report ---
Reason: Hypoxia. Cough. Procedure Date: 07/26/2019 Accession Number: [id number] / [id number] Procedure: XR - Chest 1 View X-Ray CPT Code: 06324 Final Report FULL RESULT: EXAM: CHEST RADIOGRAPHY EXAM DATE: 07/26/2019 07:45 AM. CLINICAL HISTORY: Hypoxia. Cough. COMPARISON: CHEST 1 VIEW 07/24/2019 5:47 AM ABDOMEN/PELVIS W/ 07/20/2019 2:19 PM. TECHNIQUE: 1 view. FINDINGS: Lungs/Pleura: There is mid and lower lung opacity. There is an oval-shaped focus of air at the right lung base; this could represent air within colon. Differential consideration would be intraperitoneal free air there is recent surgical history. This finding is stable. There is no evidence of pneumothorax. Mediastinum: There is cardiomegaly. Other: Interval extubation. Right IJ line tip projects over the right atrium. Orogastric tube tip is in the mid stomach. IMPRESSION: 1. Lung volumes are low. There is cardiomegaly. 2. Interval increase in mid and lower lung opacity, suspicious for worsening lung edema, atelectasis, and/or pleural effusions. 3. No evidence of pneumothorax. RADIA
[2019-07-26] MEDS: SODIUM CHLORIDE 0.9% 500 ML IV PRN (08:30)
[2019-07-26] MEDS: CHLORHEXIDINE GLUCONATE 15 ML UDC PO SCH ×2 (08:30→20:31)
[2019-07-26] MEDS: ENOXAPARIN 40 MG/0.4 ML SYRINGE SUBQ SCH (08:30)
[2019-07-26] MEDS: LORazepam 2 MG/ML VIAL IVP PRN (08:31)
[2019-07-26] MEDS ORDERED: FUROSEMIDE 40 MG/4 ML VIAL IVP STA ×2 (08:33→15:42)
[2019-07-26] MEDS: MULTIVITAMIN 10 ML, THIAMINE INJ 100 MG, FOLIC ACID INJ 1 MG in SODIUM CHLORIDE 0.9% 1,... IV SCH (09:03)
--- NOTE | 2019-07-26 09:09 | PROVIDER PROGRESS NOTE ---
Subjective - General Admit Date: 07/20/19 Procedure Date: 07/21/19 Post Op Days: 5 Procedure Performed: Exploratory Laparotomy with total abdominal colectomy and Dang's pouch - Review of Systems Wound/Incisions: positive: Dressing dry and intact General: positive: No symptoms (On ventillator) Pulmonary: positive: Other (Ventillator) Cardiovascular: positive: No symptoms Gastrointestinal: positive: Other (Ileostomy beginning to function) Genitourinary: positive: Other (Kern cath output 20-30ml/hr Scrotal edema) Skin: positive: No symptoms Objective - Patient Data Vital Signs: Vital Signs x48h Temp Pulse Pulse Resp BP Pulse Ox 07/26/19 09:00 102 H 26 H 119/85 H 98 07/26/19 08:49 100 07/26/19 08:00 36.7 C 101 H 28 H 121/83 H 98 07/26/19 07:43 98 07/26/19 07:00 99 24 118/84 H 99 07/26/19 06:10 104 H 07/26/19 06:00 104 H 10 L 120/85 H 100 07/26/19 05:00 97 24 118/87 H 99 07/26/19 04:20 101 H 07/26/19 03:59 36.6 C 99 22 109/82 H 99 07/26/19 03:00 104 H 23 117/82 H 99 07/26/19 02:10 110 H 07/26/19 02:00 109 H 26 H 127/87 H 98 Weight: Weight 07/24/19 07/25/19 07/26/19 23:59 23:59 23:59 Weight (kg) 78.5 kg 82.5 kg 82 kg Intake & Output: Intake and Output Totals x24h 07/24/19 07/25/19 07/26/19 23:59 23:59 23:59 Intake Total 3430.942 4651.997 1513 Output Total 1067 1014 545 Balance 2363.942 3637.997 968 - Lab Results Lab Results: 07/26/19 04:25 07/26/19 04:25 Other Lab Results: Lab Results x24hrs 07/26/19 07/26/19 07/26/19 Range/Units 05:44 04:25 04:25 WBC (4.8-10.8) x10^3/uL RBC (4.70-6.10) 10^6/uL Hgb (14.0-18.0) g/dL Hct (42.0-52.0) % MCV (80.0-94.0) fL MCH (27.0-31.0) pg MCHC (32.0-36.0) g/dL RDW (12.0-15.0) % Plt Count (130-450) 10^3/uL MPV (7.4-11.4) fL Neut # (Auto) Lymph # (Auto) [place] # (Auto) Eos # (Auto) Baso # (Auto) Absolute Nucleated RBC Total Counted Band Neuts % (Manual) (0 - 10) % Abnorm Lymph % (Manual) % Nucleated RBC % Neutrophils # (Manual) (1.5-6.6) 10^3/uL Lymphocytes # (Manual) (1.5-3.5) 10^3/uL Monocytes # (Manual) (0.0-1.0) 10^3/uL Eosinophils # (Manual) (0-0.7) 10^3/uL Basophils # (Manual) (0-0.1) 10^3/uL Differential Comment Platelet Estimate (NORMAL) RBC Morph Micro Appear (NORMAL) Bld Gas Analysis Time Sample Site ABG pH (7.35-7.45) ABG pCO2 (34-45) mmHg ABG pO2 (80-100) mmHg ABG HCO3 (22.0-26.0) mmol/L ABG Total CO2 (21.0-29.0) MMOL/L ABG O2 Saturation (94-98) % ABG Base Excess (-2.0-3.0) mmol/L Horacio Test O2 Delivery Device Vent Mode FiO2 EPAP cmH2O IPAP cmH2O Sodium 145 (135-145) mmol/L Potassium 4.3 (3.5-5.0) mmol/L Chloride 118 H (101-111) mmol/L Carbon Dioxide 20 L (21-32) mmol/L Anion Gap 7.0 (6-13) BUN 18 (6-20) mg/dL Creatinine 0.8 (0.6-1.2) mg/dL Estimated GFR (MDRD) 92 (>89) Glucose 168 H (70-100) mg/dL POC Whole Bld Glucose 137 H (70 - 100) mg/dL Calcium 7.8 L (8.5-10.3) mg/dL Phosphorus 3.0 (2.5-4.6) mg/dL Magnesium 2.2 (1.7-2.8) mg/dL Albumin 1.8 L (3.2-5.5) g/dL 07/26/19 07/25/19 07/25/19 Range/Units 04:25 23:50 22:45 WBC 11.7 H (4.8-10.8) x10^3/uL RBC 3.09 L (4.70-6.10) 10^6/uL Hgb 10.6 L (14.0-18.0) g/dL Hct 33.2 L (42.0-52.0) % MCV 107.4 H (80.0-94.0) fL MCH 34.3 H (27.0-31.0) pg MCHC 31.9 L (32.0-36.0) g/dL RDW 14.5 (12.0-15.0) % Plt Count 236 (130-450) 10^3/uL MPV 10.0 (7.4-11.4) fL Neut # (Auto) Not Reportable Lymph # (Auto) Not Reportable [place] # (Auto) Not Reportable Eos # (Auto) Not Reportable Baso # (Auto) Not Reportable Absolute Nucleated RBC Not Reportable Total Counted 100 Band Neuts % (Manual) 7 (0 - 10) % Abnorm Lymph % (Manual) 0 % Nucleated RBC % Not Reportable Neutrophils # (Manual) 10.3 H (1.5-6.6) 10^3/uL Lymphocytes # (Manual) 0.5 L (1.5-3.5) 10^3/uL Monocytes # (Manual) 0.9 (0.0-1.0) 10^3/uL Eosinophils # (Manual) 0.0 (0-0.7) 10^3/uL Basophils # (Manual) 0.0 (0-0.1) 10^3/uL Differential Comment MANUAL DIFFERENTIAL Platelet Estimate NORMAL (130-450,000) (NORMAL) RBC Morph Micro Appear NORMAL APPEARANCE (NORMAL) Bld Gas Analysis Time 2255 Sample Site RIGHT RADIAL ABG pH 7.40 (7.35-7.45) ABG pCO2 31 L (34-45) mmHg ABG pO2 82 (80-100) mmHg ABG HCO3 18.3 L (22.0-26.0) mmol/L ABG Total CO2 19.2 L (21.0-29.0) MMOL/L ABG O2 Saturation 96 (94-98) % ABG Base Excess -5.5 L (-2.0-3.0) mmol/L Horacio Test POSITIVE O2 Delivery Device BiPAP Vent Mode SYNCHRONOUS/TIMES FiO2 0.50 EPAP 7 cmH2O IPAP 12 cmH2O Sodium (135-145) mmol/L Potassium (3.5-5.0) mmol/L Chloride (101-111) mmol/L Carbon Dioxide (21-32) mmol/L Anion Gap (6-13) BUN (6-20) mg/dL Creatinine (0.6-1.2) mg/dL Estimated GFR (MDRD) (>89) Glucose (70-100) mg/dL POC Whole Bld Glucose 135 H (70 - 100) mg/dL Calcium (8.5-10.3) mg/dL Phosphorus (2.5-4.6) mg/dL Magnesium (1.7-2.8) mg/dL Albumin (3.2-5.5) g/dL 07/25/19 07/25/19 Range/Units 17:54 13:30 WBC (4.8-10.8) x10^3/uL RBC (4.70-6.10) 10^6/uL Hgb (14.0-18.0) g/dL Hct (42.0-52.0) % MCV (80.0-94.0) fL MCH (27.0-31.0) pg MCHC (32.0-36.0) g/dL RDW (12.0-15.0) % Plt Count (130-450) 10^3/uL MPV (7.4-11.4) fL Neut # (Auto) Lymph # (Auto) [place] # (Auto) Eos # (Auto) Baso # (Auto) Absolute Nucleated RBC Total Counted Band Neuts % (Manual) (0 - 10) % Abnorm Lymph % (Manual) % Nucleated RBC % Neutrophils # (Manual) (1.5-6.6) 10^3/uL Lymphocytes # (Manual) (1.5-3.5) 10^3/uL Monocytes # (Manual) (0.0-1.0) 10^3/uL Eosinophils # (Manual) (0-0.7) 10^3/uL Basophils # (Manual) (0-0.1) 10^3/uL Differential Comment Platelet Estimate (NORMAL) RBC Morph Micro Appear (NORMAL) Bld Gas Analysis Time Sample Site ABG pH (7.35-7.45) ABG pCO2 (34-45) mmHg ABG pO2 (80-100) mmHg ABG HCO3 (22.0-26.0) mmol/L ABG Total CO2 (21.0-29.0) MMOL/L ABG O2 Saturation (94-98) % ABG Base Excess (-2.0-3.0) mmol/L Horacio Test O2 Delivery Device Vent Mode FiO2 EPAP cmH2O IPAP cmH2O Sodium (135-145) mmol/L Potassium (3.5-5.0) mmol/L Chloride (101-111) mmol/L Carbon Dioxide (21-32) mmol/L Anion Gap (6-13) BUN (6-20) mg/dL Creatinine (0.6-1.2) mg/dL Estimated GFR (MDRD) (>89) Glucose (70-100) mg/dL POC Whole Bld Glucose 109 H 121 H (70 - 100) mg/dL Calcium (8.5-10.3) mg/dL Phosphorus (2.5-4.6) mg/dL Magnesium (1.7-2.8) mg/dL Albumin (3.2-5.5) g/dL - Current Medications Current Medications: Current Medications Generic Name Dose Route Start Last Admin Trade Name Freq PRN Reason Stop Dose Admin Chlorhexidine Gluconate 15 ml 07/22/19 09:00 07/26/19 08:30 Peridex PO 15 ml BID BRO Administration Enoxaparin Sodium 40 mg 07/21/19 09:00 07/26/19 08:30 Lovenox SUBQ 40 mg DAILY BRO Administration Heparin Sodium (Beef Lung) 30 - 50 unit 07/23/19 00:19 07/26/19 04:25 IVP 50 unit PRN PRN Administration Central Line Protocol (<24 hr) Multivitamins 10 ml/ Thiamine 1,011.2 mls @ 100 mls/hr 07/21/19 09:30 07/26/19 09:03 HCl 100 mg/ Folic Acid 1 mg/ IV 100 mls/hr Sodium Chloride DAILY BRO Administration Sodium Chloride 500 mls @ 0 mls/hr 07/21/19 21:49 07/26/19 08:30 Normal Saline 0.9% IV 25 mls/hr Q24H PRN Administration TKO RATE TKO Piperacillin Sod/Tazobactam 100 mls @ 25 mls/hr 07/22/19 09:00 07/26/19 08:30 Sod 3.375 gm/ Sodium Chloride IV 25 mls/hr Q8H BRO Administration Sodium Chloride 500 mls @ 0 mls/hr 07/22/19 08:25 07/23/19 10:00 Normal Saline 0.9% IV Infused Q24H PRN Infusion TKO RATE TKO Lorazepam 1 mg 07/21/19 08:48 07/26/19 08:31 Ativan Inj (Vial) IVP 1 mg Q1H PRN Administration CIWA >8 Protocol Morphine Sulfate 2 mg 07/20/19 16:12 07/26/19 01:03 Morphine (Carpuject) IVP 2 mg Q2HR PRN Administration Pain 8 to 10 Multi-Ingred Cream/Lotion/Oil/Oint 1 applic 07/23/19 13:33 07/23/19 14:32 Lubrifresh Pm Ophth Oint EACHEYE 1 applic QPM PRN Administration Dry Eye Pantoprazole Sodium 40 mg 07/22/19 07:00 07/26/19 06:06 Protonix IVP 40 mg QDAC BRO Administration Sodium Chloride 10 ml 07/20/19 16:12 07/26/19 04:25 Normal Saline Flush 0.9% IVP 20 ml PRN PRN Administration NEEDED PER PROVIDER ORDERS Sodium Chloride 10 ml 07/21/19 01:00 07/26/19 08:32 Normal Saline Flush 0.9% IVP 10 ml 0100,0900,1700 BRO Administration Sodium Chloride 10 ml 07/22/19 01:00 07/26/19 08:32 Normal Saline Flush 0.9% IVP 10 ml 0100,0900,1700 BRO Administration Sodium Chloride 10 ml 07/21/19 21:06 07/23/19 18:38 Normal Saline Flush 0.9% IVP 10 ml PRN PRN Administration NEEDED PER PROVIDER ORDERS Sodium Chloride 20 ml 07/21/19 21:49 07/24/19 04:49 Normal Saline Flush 0.9% IVP 20 ml PRN PRN Administration After Blood Draw - Physical Exam General Appearance: positive: Lethargic (Just received Ativan prior to my arriva l but did arouse to voice.) Respiratory: positive: Other (Currently on mask) Abdomen: positive: Other (Ileostomy output 150cc. Ostomy slightly edematous.) ABX Reporting Has patient been on IV antibiotics over the past 48 hours?: No Impression/Plan - Problem List Problem List: I&O mismatch. Discussed w/Dr. Zavala and he will diurese w/Talat. Also we felt trickle feeding via NGT should be initiated.
--- NOTE | 2019-07-26 11:24 | PROVIDER PROGRESS NOTE ---
Subjective - Prog Note Date Prog Note Date: 07/26/19 - Subjective Subjective: Patient was extubated yesterday and was placed on nasal cannula. Overnight he was placed on BiPAP as he was tachypneic and hypoxic. This morning he is lethargic but does follow commands. He denies pain. He does feel short of breath. Current Medications - Current Medications Current Medications: Active Medications Acetaminophen (Tylenol) 650 mg PO Q4HR PRN PRN Reason: Pain 1 to 4 Albuterol () 2.5 mg INH RTQ4H PRN PRN Reason: Wheezing Albuterol/Ipratropium (Duoneb) 3 ml INH RTQID PRN PRN Reason: Shortness of Air/Wheezing Chlorhexidine Gluconate (Peridex) 15 ml PO BID [facility] Last Admin: 07/26/19 08:30 Dose: 15 ml Enoxaparin Sodium (Lovenox) 40 mg SUBQ DAILY [facility] Last Admin: 07/26/19 08:30 Dose: 40 mg Heparin Sodium (Beef Lung) () 30 - 50 unit IVP PRN PRN PRN Reason: Central Line Protocol (<24 hr) Last Admin: 07/26/19 04:25 Dose: 50 unit Hydralazine HCl (Apresoline Inj) 10 mg IVP QID PRN PRN Reason: Hypertensive Emergency Multivitamins 10 ml/ Thiamine HCl 100 mg/ Folic Acid 1 mg/Sodium Chloride 1,011.2 mls @ 100 mls/hr IV DAILY [facility] Last Admin: 07/26/19 09:03 Dose: 100 mls/hr Sodium Chloride (Normal Saline 0.9%) 500 mls @ 0 mls/hr IV Q24H PRN PRN Reason: TKO RATE Last Admin: 07/26/19 08:30 Dose: 25 mls/hr Piperacillin Sod/Tazobactam (Sod 3.375 gm/ Sodium Chloride) 100 mls @ 25 mls/hr IV Q8H [facility] Last Admin: 07/26/19 08:30 Dose: 25 mls/hr Sodium Chloride (Normal Saline 0.9%) 500 mls @ 0 mls/hr IV Q24H PRN PRN Reason: TKO RATE Last Infusion: 07/23/19 10:00 Dose: Infused Lorazepam (Ativan Inj (Vial)) 1 mg IVP Q1H PRN; Protocol PRN Reason: CIWA >8 Last Admin: 07/26/19 08:31 Dose: 1 mg Metoprolol Tartrate (Lopressor Inj) 5 mg IVP Q6H PRN PRN Reason: Tachycardia Morphine Sulfate (Morphine (Carpuject)) 2 mg IVP Q2HR PRN PRN Reason: Pain 8 to 10 Last Admin: 07/26/19 01:03 Dose: 2 mg Multi-Ingred Cream/Lotion/Oil/Oint (Lubrifresh Pm Ophth Oint) 1 applic EACHEYE QPM PRN PRN Reason: Dry Eye Last Admin: 07/23/19 14:32 Dose: 1 applic Ondansetron HCl (Zofran Inj) 4 mg IVP Q6HR PRN PRN Reason: Nausea / Vomiting Pantoprazole Sodium (Protonix) 40 mg IVP QDAC [facility] Last Admin: 07/26/19 06:06 Dose: 40 mg Sodium Chloride (Normal Saline Flush 0.9%) 10 ml IVP PRN PRN PRN Reason: NEEDED PER PROVIDER ORDERS Last Admin: 07/26/19 04:25 Dose: 20 ml Sodium Chloride (Normal Saline Flush 0.9%) 10 ml IVP 0100,0900,1700 [facility] Last Admin: 07/26/19 08:32 Dose: 10 ml Sodium Chloride (Normal Saline Flush 0.9%) 10 ml IVP 0100,0900,1700 [facility] Last Admin: 07/26/19 08:32 Dose: 10 ml Sodium Chloride (Normal Saline Flush 0.9%) 10 ml IVP PRN PRN PRN Reason: NEEDED PER PROVIDER ORDERS Sodium Chloride (Normal Saline Flush 0.9%) 10 ml IVP PRN PRN PRN Reason: NEEDED PER PROVIDER ORDERS Last Admin: 07/23/19 18:38 Dose: 10 ml Sodium Chloride (Normal Saline Flush 0.9%) 20 ml IVP PRN PRN PRN Reason: After Blood Draw Last Admin: 07/24/19 04:49 Dose: 20 ml Aspirin [Aspirin EC] 81 mg PO DAILY 09/09/17 Atorvastatin [Lipitor] 10 mg PO DAILY 09/09/17 Calcium Carbonate/Vitamin D3 [Calcium 500-Vit D3 600 Caplet] 1 tab PO DAILY 09/09/17 Carvedilol Phosphate [Coreg Cr] 40 mg PO DAILY 09/09/17 Doxycycline Hyclate 50 mg PO DAILY 09/09/17 Krill Oil/[place]-3/Dha/Epa [[place]-3 Krill Oil Softgel] 1 cap PO DAILY 09/09/17 Lutein/Zeaxanthin [Ocuvite Lutein 25-5 mg Softgel] 1 cap PO DAILY 09/09/17 Ubidecarenone [Co Q-10] 300 mg PO DAILY 09/09/17 dilTIAZem HCl [Diltiazem 24Hr Cd] 300 mg PO DAILY 09/09/17 L. Acidophilus/L. Rhamnosus [Probiotic 15 Billion Cell Cap] 1 each PO DAILY 07/21/19 Lisinopril [Prinivil] 20 mg PO BID 07/21/19 Multivitamin,Therapeutic [Thera] 1 each PO DAILY 07/21/19 Objective - Vital Signs/Intake & Output Reviewed Vital Signs: Yes Vital Signs: Vital Signs x48h Temp Pulse Pulse Resp BP Pulse Ox 07/26/19 11:16 104 H 07/26/19 11:00 105 H 23 128/90 H 100 07/26/19 10:00 100 21 119/82 H 100 07/26/19 09:00 102 H 26 H 119/85 H 98 07/26/19 08:49 100 07/26/19 08:00 36.7 C 101 H 28 H 121/83 H 98 07/26/19 07:43 98 07/26/19 07:00 99 24 118/84 H 99 07/26/19 06:10 104 H 07/26/19 06:00 104 H 10 L 120/85 H 100 07/26/19 05:00 97 24 118/87 H 99 07/26/19 04:20 101 H 07/26/19 03:59 36.6 C 99 22 109/82 H 99 Intake & Output: Intake & Output 07/23/19 07/24/19 07/25/19 07/26/19 23:59 23:59 23:59 23:59 Intake Total 3900.505 3430.942 4651.997 1513 Output Total 951 1067 1014 1330 Balance 2949.505 2363.942 3637.997 183 - Objective General Appearance: positive: No acute distress, Lethargic Eyes Bilateral: positive: Normal inspection ENT: positive: Other (NG tube in place.) Neck: positive: Nml inspection Respiratory: positive: No respiratory distress, Other (BiPAP mask in place. Diminished breath sounds bilaterally.) Cardiovascular: positive: No murmur, Tachycardia. negative: Systolic murmur, Diastolic murmur Abdomen: positive: Non-tender, Other (Ileostomy in place.). negative: No distention Skin: positive: No rash, Warm, Dry Extremities: positive: No pedal edema Neurologic/Psychiatric: positive: Other (He has no focal motor deficits on exam. He does follow commands but is lethargic.) - Lab Results Fish Bones: 07/26/19 04:25 07/26/19 04:25 Other Labs: Lab Results x24hrs 07/26/19 07/26/19 07/26/19 Range/Units 05:44 04:25 04:25 WBC (4.8-10.8) x10^3/uL RBC (4.70-6.10) 10^6/uL Hgb (14.0-18.0) g/dL Hct (42.0-52.0) % MCV (80.0-94.0) fL MCH (27.0-31.0) pg MCHC (32.0-36.0) g/dL RDW (12.0-15.0) % Plt Count (130-450) 10^3/uL MPV (7.4-11.4) fL Neut # (Auto) Lymph # (Auto) [place] # (Auto) Eos # (Auto) Baso # (Auto) Absolute Nucleated RBC Total Counted Band Neuts % (Manual) (0 - 10) % Abnorm Lymph % (Manual) % Nucleated RBC % Neutrophils # (Manual) (1.5-6.6) 10^3/uL Lymphocytes # (Manual) (1.5-3.5) 10^3/uL Monocytes # (Manual) (0.0-1.0) 10^3/uL Eosinophils # (Manual) (0-0.7) 10^3/uL Basophils # (Manual) (0-0.1) 10^3/uL Differential Comment Platelet Estimate (NORMAL) RBC Morph Micro Appear (NORMAL) Bld Gas Analysis Time Sample Site ABG pH (7.35-7.45) ABG pCO2 (34-45) mmHg ABG pO2 (80-100) mmHg ABG HCO3 (22.0-26.0) mmol/L ABG Total CO2 (21.0-29.0) MMOL/L ABG O2 Saturation (94-98) % ABG Base Excess (-2.0-3.0) mmol/L Horacio Test O2 Delivery Device Vent Mode FiO2 EPAP cmH2O IPAP cmH2O Sodium 145 (135-145) mmol/L Potassium 4.3 (3.5-5.0) mmol/L Chloride 118 H (101-111) mmol/L Carbon Dioxide 20 L (21-32) mmol/L Anion Gap 7.0 (6-13) BUN 18 (6-20) mg/dL Creatinine 0.8 (0.6-1.2) mg/dL Estimated GFR (MDRD) 92 (>89) Glucose 168 H (70-100) mg/dL POC Whole Bld Glucose 137 H (70 - 100) mg/dL Calcium 7.8 L (8.5-10.3) mg/dL Phosphorus 3.0 (2.5-4.6) mg/dL Magnesium 2.2 (1.7-2.8) mg/dL Albumin 1.8 L (3.2-5.5) g/dL 07/26/19 07/25/19 07/25/19 Range/Units 04:25 23:50 22:45 WBC 11.7 H (4.8-10.8) x10^3/uL RBC 3.09 L (4.70-6.10) 10^6/uL Hgb 10.6 L (14.0-18.0) g/dL Hct 33.2 L (42.0-52.0) % MCV 107.4 H (80.0-94.0) fL MCH 34.3 H (27.0-31.0) pg MCHC 31.9 L (32.0-36.0) g/dL RDW 14.5 (12.0-15.0) % Plt Count 236 (130-450) 10^3/uL MPV 10.0 (7.4-11.4) fL Neut # (Auto) Not Reportable Lymph # (Auto) Not Reportable [place] # (Auto) Not Reportable Eos # (Auto) Not Reportable Baso # (Auto) Not Reportable Absolute Nucleated RBC Not Reportable Total Counted 100 Band Neuts % (Manual) 7 (0 - 10) % Abnorm Lymph % (Manual) 0 % Nucleated RBC % Not Reportable Neutrophils # (Manual) 10.3 H (1.5-6.6) 10^3/uL Lymphocytes # (Manual) 0.5 L (1.5-3.5) 10^3/uL Monocytes # (Manual) 0.9 (0.0-1.0) 10^3/uL Eosinophils # (Manual) 0.0 (0-0.7) 10^3/uL Basophils # (Manual) 0.0 (0-0.1) 10^3/uL Differential Comment MANUAL DIFFERENTIAL Platelet Estimate NORMAL (130-450,000) (NORMAL) RBC Morph Micro Appear NORMAL APPEARANCE (NORMAL) Bld Gas Analysis Time 2255 Sample Site RIGHT RADIAL ABG pH 7.40 (7.35-7.45) ABG pCO2 31 L (34-45) mmHg ABG pO2 82 (80-100) mmHg ABG HCO3 18.3 L (22.0-26.0) mmol/L ABG Total CO2 19.2 L (21.0-29.0) MMOL/L ABG O2 Saturation 96 (94-98) % ABG Base Excess -5.5 L (-2.0-3.0) mmol/L Horacio Test POSITIVE O2 Delivery Device BiPAP Vent Mode SYNCHRONOUS/TIMES FiO2 0.50 EPAP 7 cmH2O IPAP 12 cmH2O Sodium (135-145) mmol/L Potassium (3.5-5.0) mmol/L Chloride (101-111) mmol/L Carbon Dioxide (21-32) mmol/L Anion Gap (6-13) BUN (6-20) mg/dL Creatinine (0.6-1.2) mg/dL Estimated GFR (MDRD) (>89) Glucose (70-100) mg/dL POC Whole Bld Glucose 135 H (70 - 100) mg/dL Calcium (8.5-10.3) mg/dL Phosphorus (2.5-4.6) mg/dL Magnesium (1.7-2.8) mg/dL Albumin (3.2-5.5) g/dL 07/25/19 07/25/19 Range/Units 17:54 13:30 WBC (4.8-10.8) x10^3/uL RBC (4.70-6.10) 10^6/uL Hgb (14.0-18.0) g/dL Hct (42.0-52.0) % MCV (80.0-94.0) fL MCH (27.0-31.0) pg MCHC (32.0-36.0) g/dL RDW (12.0-15.0) % Plt Count (130-450) 10^3/uL MPV (7.4-11.4) fL Neut # (Auto) Lymph # (Auto) [place] # (Auto) Eos # (Auto) Baso # (Auto) Absolute Nucleated RBC Total Counted Band Neuts % (Manual) (0 - 10) % Abnorm Lymph % (Manual) % Nucleated RBC % Neutrophils # (Manual) (1.5-6.6) 10^3/uL Lymphocytes # (Manual) (1.5-3.5) 10^3/uL Monocytes # (Manual) (0.0-1.0) 10^3/uL Eosinophils # (Manual) (0-0.7) 10^3/uL Basophils # (Manual) (0-0.1) 10^3/uL Differential Comment Platelet Estimate (NORMAL) RBC Morph Micro Appear (NORMAL) Bld Gas Analysis Time Sample Site ABG pH (7.35-7.45) ABG pCO2 (34-45) mmHg ABG pO2 (80-100) mmHg ABG HCO3 (22.0-26.0) mmol/L ABG Total CO2 (21.0-29.0) MMOL/L ABG O2 Saturation (94-98) % ABG Base Excess (-2.0-3.0) mmol/L Horacio Test O2 Delivery Device Vent Mode FiO2 EPAP cmH2O IPAP cmH2O Sodium (135-145) mmol/L Potassium (3.5-5.0) mmol/L Chloride (101-111) mmol/L Carbon Dioxide (21-32) mmol/L Anion Gap (6-13) BUN (6-20) mg/dL Creatinine (0.6-1.2) mg/dL Estimated GFR (MDRD) (>89) Glucose (70-100) mg/dL POC Whole Bld Glucose 109 H 121 H (70 - 100) mg/dL Calcium (8.5-10.3) mg/dL Phosphorus (2.5-4.6) mg/dL Magnesium (1.7-2.8) mg/dL Albumin (3.2-5.5) g/dL - Diagnostic Imaging Diagnostic Imaging Results: positive: Final report reviewed ABX Reporting Has patient been on IV antibiotics over the past 48 hours?: Yes Sepsis Event Note (H) - Evaluation Current Stage of Sepsis: Ruled out Assessment/Plan - Problem List (1) Acute respiratory failure with hypoxia Impression: He was extubated yesterday but remains hypoxic and is now on BiPAP with an FiO2 of 45%. An x-ray completed this morning is concerning for pulmonary vascular congestion and bilateral pleural effusions. We will give a dose of Lasix 40 mg IV given that he is positive nearly 10 L since admission. We will discontinue his IV fluids for the time being. Will attempt to transition to nasal cannula in the afternoon if he responds to diuresis. (2) Bowel obstruction Impression: He is status post colectomy on July 21. There was concern for colon cancer clinically although pathology is pending. We will continue pain control with morphine IV as needed. Will initiate trickle feeds at 10 mL an hour and advance as tolerated. Continue Zosyn IV for 1 more day. Qualifiers: Intestinal obstruction extent: unspecified extent Qualified Code(s): K56.609 - Unspecified intestinal obstruction, unspecified as to partial versus complete obstruction (3) Physical deconditioning Impression: Appears lethargic and clinically deconditioned after being intubated for a few days and undergoing a total colectomy. Will consult PT and OT to evaluate the patient. (4) Hyperchloremic metabolic acidosis Impression: Secondary to hydration with IV saline. We will discontinue IV fluids and monitor his bicarbonate. (5) Alcohol abuse Impression: He is no longer going through withdrawal. (6) HTN (hypertension) Impression: His blood pressure has been well controlled with Lopressor 5 mg IV every 6 hours.Continue hydralazine IV as needed. Will resume his other home antihypertensives as his blood pressure tolerates.
[2019-07-26] MEDS: METOPROLOL 5 MG/5 ML VIAL IVP PRN ×2 (12:45→18:53)
[2019-07-27] MEDS: PIPERACILLIN/TAZOBACTAM 3.375 GM in SODIUM CHLORIDE 0.9% MINIBAG 100 ML IV SCH (01:09)
[2019-07-27] MEDS: METOPROLOL 5 MG/5 ML VIAL IVP PRN ×2 (03:55→10:27)
[2019-07-27] MEDS: SODIUM CHLORIDE FLUSH 0.9% 10 ML SYRINGE IVP SCH ×5 (04:04→18:26)
[2019-07-27] MEDS: SODIUM CHLORIDE FLUSH 0.9% 10 ML SYRINGE IVP PRN ×4 (04:34→06:10)
[2019-07-27 05:00] LABS: BASOPHILS % (AUTO) 0.3 %; EOSINOPHILS # (AUTO) 0.1 10^3/uL (0.0-0.7); EOSINOPHILS % (AUTO) 0.9 %; HGB - HEMOGLOBIN 10.7 g/dL (14.0-18.0); LYMPHOCYTES # (AUTO) 1.2 10^3/uL (1.5-3.5); LYMPHOCYTES % (AUTO) 10.4 %; MEAN CORPUSCULAR HEMOGLOBIN 33.2 pg (27.0-31.0); MEAN CORPUSCULAR HGB CONC 31.2 g/dL (32.0-36.0); MEAN CORPUSCULAR VOLUME 106.5 fL (80.0-94.0); MEAN PLATELET VOLUME 10.3 fL (7.4-11.4); MONOCYTES # (AUTO) 1.3 10^3/uL (0.0-1.0); MONOCYTES % (AUTO) 11.5 %; NEUTROPHILS # (AUTO) 8.4 10^3/uL (1.5-6.6); NEUTROPHILS % (AUTO) 75.3 %; PLT - PLATELET COUNT 292 10^3/uL (130-450); RED BLOOD COUNT 3.22 10^6/uL (4.70-6.10); RED CELL DISTRIBUTION WIDTH 14.4 % (12.0-15.0); WHITE BLOOD COUNT 11.1 x10^3/uL (4.8-10.8)
[2019-07-27 05:15] LABS: BILIRUBIN,DIRECT 0.2 mg/dL (0.1-0.5); BILIRUBIN,TOTAL 0.6 mg/dL (0.2-1.0); CREATININE 0.8 mg/dL (0.6-1.2); MAGNESIUM 2.2 mg/dL (1.7-2.8); PHOSPHORUS 2.6 mg/dL (2.5-4.6); TOTAL PROTEIN 5.2 g/dL (6.7-8.2)
[2019-07-27] MEDS: PANTOPRAZOLE 40 MG VIAL IVP SCH (06:10)
[2019-07-27] MEDS ORDERED: DEXTROSE 5% 1,000 ML IV SCH (09:00)
[2019-07-27] MEDS: CHLORHEXIDINE GLUCONATE 15 ML UDC PO SCH ×2 (09:33→23:03)
[2019-07-27] MEDS: ENOXAPARIN 40 MG/0.4 ML SYRINGE SUBQ SCH (09:34)
[2019-07-27] MEDS ORDERED: diltiaZEM INJ 5 MG/ML VIAL IVP ONE (10:54)
--- NOTE | 2019-07-27 12:28 | PROVIDER PROGRESS NOTE ---
Subjective - Prog Note Date Prog Note Date: 07/27/19 - Subjective Pt reports feeling: Improved Subjective: Reports feeling better today still quite weak. Reports no abdominal pain thirsty he denies feeling short of breath. He would like to eat. He was on BiPAP overnight. Current Medications - Current Medications Current Medications: Active Medications Acetaminophen (Tylenol) 650 mg PO Q4HR PRN PRN Reason: Pain 1 to 4 Albuterol () 2.5 mg INH RTQ4H PRN PRN Reason: Wheezing Albuterol/Ipratropium (Duoneb) 3 ml INH RTQID PRN PRN Reason: Shortness of Air/Wheezing Chlorhexidine Gluconate (Peridex) 15 ml PO BID [facility] Last Admin: 07/27/19 09:33 Dose: 15 ml Enoxaparin Sodium (Lovenox) 40 mg SUBQ DAILY [facility] Last Admin: 07/27/19 09:34 Dose: 40 mg Heparin Sodium (Beef Lung) () 30 - 50 unit IVP PRN PRN PRN Reason: Central Line Protocol (<24 hr) Last Admin: 07/27/19 04:34 Dose: 50 unit Hydralazine HCl (Apresoline Inj) 10 mg IVP QID PRN PRN Reason: Hypertensive Emergency Sodium Chloride (Normal Saline 0.9%) 500 mls @ 0 mls/hr IV Q24H PRN PRN Reason: TKO RATE Last Infusion: 07/27/19 09:20 Dose: Infused Sodium Chloride (Normal Saline 0.9%) 500 mls @ 0 mls/hr IV Q24H PRN PRN Reason: TKO RATE Last Infusion: 07/23/19 10:00 Dose: Infused Dextrose (D5w) 1,000 mls @ 83.333 mls/hr IV .Q12H [facility] Last Admin: 07/27/19 09:20 Dose: 83.333 mls/hr Metoprolol Tartrate (Lopressor Inj) 5 mg IVP Q6H PRN PRN Reason: Tachycardia Last Admin: 07/27/19 10:27 Dose: 5 mg Metoprolol Tartrate (Lopressor Inj) 5 mg IVP Q6HR [facility] Morphine Sulfate (Morphine (Carpuject)) 2 mg IVP Q2HR PRN PRN Reason: Pain 8 to 10 Last Admin: 11/13/19 23:33 Dose: 2 mg Multi-Ingred Cream/Lotion/Oil/Oint (Lubrifresh Pm Ophth Oint) 1 applic EACHEYE QPM PRN PRN Reason: Dry Eye Last Admin: 07/23/19 14:32 Dose: 1 applic Ondansetron HCl (Zofran Inj) 4 mg IVP Q6HR PRN PRN Reason: Nausea / Vomiting Pantoprazole Sodium (Protonix) 40 mg IVP QDAC [facility] Last Admin: 07/27/19 06:10 Dose: 40 mg Sodium Chloride (Normal Saline Flush 0.9%) 10 ml IVP PRN PRN PRN Reason: NEEDED PER PROVIDER ORDERS Last Admin: 07/27/19 06:10 Dose: 10 ml Sodium Chloride (Normal Saline Flush 0.9%) 10 ml IVP 0100,0900,1700 [facility] Last Admin: 07/27/19 10:31 Dose: 10 ml Sodium Chloride (Normal Saline Flush 0.9%) 10 ml IVP 0100,0900,1700 [facility] Last Admin: 07/27/19 10:31 Dose: 10 ml Sodium Chloride (Normal Saline Flush 0.9%) 10 ml IVP PRN PRN PRN Reason: NEEDED PER PROVIDER ORDERS Last Admin: 07/27/19 04:34 Dose: 10 ml Sodium Chloride (Normal Saline Flush 0.9%) 10 ml IVP PRN PRN PRN Reason: NEEDED PER PROVIDER ORDERS Last Admin: 07/27/19 04:34 Dose: 10 ml Sodium Chloride (Normal Saline Flush 0.9%) 20 ml IVP PRN PRN PRN Reason: After Blood Draw Last Admin: 07/24/19 04:49 Dose: 20 ml Aspirin [Aspirin EC] 81 mg PO DAILY 09/09/17 Atorvastatin [Lipitor] 10 mg PO DAILY 09/09/17 Calcium Carbonate/Vitamin D3 [Calcium 500-Vit D3 600 Caplet] 1 tab PO DAILY 09/09/17 Carvedilol Phosphate [Coreg Cr] 40 mg PO DAILY 09/09/17 Doxycycline Hyclate 50 mg PO DAILY 09/09/17 Krill Oil/[place]-3/Dha/Epa [[place]ega-3 Krill Oil Softgel] 1 cap PO DAILY 09/09/17 Lutein/Zeaxanthin [Ocuvite Lutein 25-5 mg Softgel] 1 cap PO DAILY 09/09/17 Ubidecarenone [Co Q-10] 300 mg PO DAILY 09/09/17 dilTIAZem HCl [Diltiazem 24Hr Cd] 300 mg PO DAILY 09/09/17 L. Acidophilus/L. Rhamnosus [Probiotic 15 Billion Cell Cap] 1 each PO DAILY 07/21/19 Lisinopril [Prinivil] 20 mg PO BID 07/21/19 Multivitamin,Therapeutic [Thera] 1 each PO DAILY 07/21/19 Objective - Vital Signs/Intake & Output Reviewed Vital Signs: Yes Vital Signs: Vital Signs x48h Temp Pulse Pulse Resp BP BP Pulse Ox 07/27/19 12:00 133 H 35 H 109/67 92 07/27/19 11:04 110/83 H 07/27/19 11:00 100 20 110/83 H 07/27/19 10:45 143 H 24 124/71 95 07/27/19 10:30 144 H 28 H 111/77 95 07/27/19 10:27 125/78 07/27/19 10:00 116 H 32 H 132/92 H 94 07/27/19 09:00 110 H 24 126/82 H 98 07/27/19 08:00 36.7 C 109 H 23 117/77 98 07/27/19 07:00 102 H 19 115/78 99 07/27/19 06:15 109 H 07/27/19 06:00 105 H 20 122/80 99 07/27/19 05:20 106 H 07/27/19 05:00 109 H 23 130/91 H 99 07/27/19 04:45 109 H 21 125/85 H 99 07/27/19 04:30 103 H 20 129/87 H 129/87 H 99 07/27/19 04:15 102 H 20 127/83 H 99 Intake & Output: Intake & Output 07/24/19 07/25/19 07/26/19 07/27/19 23:59 23:59 23:59 23:59 Intake Total 3430.942 4651.997 2716.2 1150 Output Total 1067 1014 2820 378 Balance 2363.942 3637.997 -103.8 772 - Objective General Appearance: positive: No acute distress, Alert, Lethargic (Improved compared to yesterday.) Eyes Bilateral: positive: Normal inspection, Other (Left eyelid is closed.) ENT: positive: ENT inspection nml, Other (Oxy mask in place. NG tube in place.) Neck: positive: Nml inspection Respiratory: positive: Other (Tachypinic but less than yesterday. Diminished chana ath sounds.). negative: Wheezes, Rales Cardiovascular: positive: No murmur, Irregularly irregular, Tachycardia. negative: Bradycardia, Systolic murmur, Diastolic murmur Abdomen: positive: Non-tender, No distention, Other (Ileostomy in place.). neg ative: Tenderness Skin: positive: No rash, Warm, Dry Extremities: positive: No pedal edema Neurologic/Psychiatric: positive: Other (He has generalized weakness but no focal motor deficits.). negative: Disoriented to person, Disoriented to place - Lab Results Fish Bones: 07/27/19 04:35 07/27/19 18:01 Other Labs: Lab Results x24hrs 07/27/19 07/27/19 07/27/19 Range/Units 05:45 04:35 04:35 WBC 11.1 H (4.8-10.8) x10^3/uL RBC 3.22 L (4.70-6.10) 10^6/uL Hgb 10.7 L (14.0-18.0) g/dL Hct 34.3 L (42.0-52.0) % MCV 106.5 H (80.0-94.0) fL MCH 33.2 H (27.0-31.0) pg MCHC 31.2 L (32.0-36.0) g/dL RDW 14.4 (12.0-15.0) % Plt Count 292 (130-450) 10^3/uL MPV 10.3 (7.4-11.4) fL Neut # (Auto) 8.4 H (1.5-6.6) 10^3/uL Lymph # (Auto) 1.2 L (1.5-3.5) 10^3/uL [place] # (Auto) 1.3 H (0.0-1.0) 10^3/uL Eos # (Auto) 0.1 (0.0-0.7) 10^3/uL Baso # (Auto) 0.0 (0.0-0.1) 10^3/uL Absolute Nucleated RBC 0.03 x10^3/uL Nucleated RBC % 0.3 /100WBC Sodium 147 H (135-145) mmol/L Potassium 3.7 (3.5-5.0) mmol/L Chloride 118 H (101-111) mmol/L Carbon Dioxide 22 (21-32) mmol/L Anion Gap 7.0 (6-13) BUN 26 H (6-20) mg/dL Creatinine 0.8 (0.6-1.2) mg/dL Estimated GFR (MDRD) 92 (>89) Glucose 176 H (70-100) mg/dL POC Whole Bld Glucose 153 H (70 - 100) mg/dL Calcium 8.0 L (8.5-10.3) mg/dL Phosphorus 2.6 (2.5-4.6) mg/dL Magnesium 2.2 (1.7-2.8) mg/dL Total Bilirubin 0.6 (0.2-1.0) mg/dL Direct Bilirubin 0.2 (0.1-0.5) mg/dL AST 21 (10-42) IU/L ALT 25 (10-60) IU/L Alkaline Phosphatase 52 (42-121) IU/L Total Protein 5.2 L (6.7-8.2) g/dL Albumin 2.0 L (3.2-5.5) g/dL Globulin 3.2 (2.1-4.2) g/dL 07/27/19 07/26/19 Range/Units 00:13 18:07 WBC (4.8-10.8) x10^3/uL RBC (4.70-6.10) 10^6/uL Hgb (14.0-18.0) g/dL Hct (42.0-52.0) % MCV (80.0-94.0) fL MCH (27.0-31.0) pg MCHC (32.0-36.0) g/dL RDW (12.0-15.0) % Plt Count (130-450) 10^3/uL MPV (7.4-11.4) fL Neut # (Auto) (1.5-6.6) 10^3/uL Lymph # (Auto) (1.5-3.5) 10^3/uL [place] # (Auto) (0.0-1.0) 10^3/uL Eos # (Auto) (0.0-0.7) 10^3/uL Baso # (Auto) (0.0-0.1) 10^3/uL Absolute Nucleated RBC x10^3/uL Nucleated RBC % /100WBC Sodium (135-145) mmol/L Potassium (3.5-5.0) mmol/L Chloride (101-111) mmol/L Carbon Dioxide (21-32) mmol/L Anion Gap (6-13) BUN (6-20) mg/dL Creatinine (0.6-1.2) mg/dL Estimated GFR (MDRD) (>89) Glucose (70-100) mg/dL POC Whole Bld Glucose 138 H 126 H (70 - 100) mg/dL Calcium (8.5-10.3) mg/dL Phosphorus (2.5-4.6) mg/dL Magnesium (1.7-2.8) mg/dL Total Bilirubin (0.2-1.0) mg/dL Direct Bilirubin (0.1-0.5) mg/dL AST (10-42) IU/L ALT (10-60) IU/L Alkaline Phosphatase (42-121) IU/L Total Protein (6.7-8.2) g/dL Albumin (3.2-5.5) g/dL Globulin (2.1-4.2) g/dL ABX Reporting Has patient been on IV antibiotics over the past 48 hours?: No Sepsis Event Note (H) - Evaluation Current Stage of Sepsis: Ruled out Assessment/Plan - Problem List (1) Acute respiratory failure with hypoxia Impression: He remains hypoxic requiring 4 L of oxygen but he is less tachypneic today. He was able to tolerate being off of the BiPAP yesterday for a few hours. He responded well to IV diuresis. As he does not appear overtly hypervolemic at this time, will hold off on further diuresis. Continue to wean his oxygen for goal saturation greater than 92%. Continue spirometry use. Keep head of bed elevated at 30 degrees. 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 Pathology is pending, but concern is for colon cancer. Will discontinue antibiotics as it has been 5 days of IV Zosyn. There are no clinical signs of infection at this time. Has been tolerating tube feeds. Will ask speech therapy to evaluate him today. Qualifiers: Intestinal obstruction extent: unspecified extent Qualified Code(s): K56.609 - Unspecified intestinal obstruction, unspecified as to partial versus complete obstruction (3) Paroxysmal atrial fibrillation with rapid ventricular response Impression: Went into atrial fibrillation today while working with physical therapy with heart rates in the 140s. This appears to be a new diagnosis for him. We will rate control him with Lopressor 5 mg IV every 6 hours as he is on a beta-deidre at home. Will use Cardizem IV as needed he is also on Cardizem at home. We will check an echocardiogram, troponin and a TSH. (4) Physical deconditioning Impression: Clinically deconditioned after being intubated for a few days and undergoing a total colectomy. He does appear more interactive today and is more alert. We will continue to have him work with PT. He will likely need to go to a SNF on discharge. (5) Hypernatremia Impression: Secondary to decreased free water intake and IV diuresis. We will start him on D5 water and continue free water pushes at 40mL/hr. Continue to monitor his sodium. (6) Hyperchloremic metabolic acidosis Impression: Has improved after the discontinuation of IV saline. (7) Alcohol abuse Impression: He is no longer going through withdrawal. (8) HTN (hypertension) Impression: Has remained normotensive. Will resume his metoprolol IV given the atrial fibrillation.
[2019-07-27] MEDS: INSULIN REGULAR HUMAN 300 UNIT/3 ML VIAL SUBQ SCH ×2 (13:06→18:28)
--- NOTE | 2019-07-27 13:24 | PROVIDER PROGRESS NOTE ---
Subjective - General Admit Date: 07/20/19 Procedure Date: 07/21/19 Post Op Days: 6 Procedure Performed: Exploratory Laparotomy with total abdominal colectomy and Dang's pouch - Review of Systems Wound/Incisions: positive: Dressing dry and intact General: positive: No symptoms (On ventillator) Pulmonary: positive: Other (Ventillator) Cardiovascular: positive: No symptoms Gastrointestinal: positive: Other (Ileostomy beginning to function) Genitourinary: positive: Other (Kern cath output 20-30ml/hr Scrotal edema) Skin: positive: No symptoms Objective - Patient Data Vital Signs: Vital Signs x48h Temp Pulse Pulse Resp BP BP Pulse Ox 07/27/19 12:00 133 H 35 H 109/67 92 07/27/19 11:04 110/83 H 07/27/19 11:00 100 20 110/83 H 07/27/19 10:57 110/83 H 07/27/19 10:45 143 H 24 124/71 95 07/27/19 10:30 144 H 28 H 111/77 95 07/27/19 10:27 125/78 07/27/19 10:00 116 H 32 H 132/92 H 94 07/27/19 09:00 110 H 24 126/82 H 98 07/27/19 08:00 36.7 C 109 H 23 117/77 98 07/27/19 07:00 102 H 19 115/78 99 07/27/19 06:15 109 H 07/27/19 06:00 105 H 20 122/80 99 Weight: Weight 07/25/19 07/26/19 07/27/19 23:59 23:59 23:59 Weight (kg) 82.5 kg 82 kg 83.5 kg Intake & Output: Intake and Output Totals x24h 07/25/19 07/26/19 07/27/19 23:59 23:59 23:59 Intake Total 4651.997 2716.2 1580 Output Total 1014 2820 398 Balance 3637.997 -103.8 1182 - Lab Results Lab Results: 07/27/19 04:35 07/27/19 04:35 Other Lab Results: Lab Results x24hrs 07/27/19 07/27/19 07/27/19 Range/Units 12:15 05:45 04:35 WBC (4.8-10.8) x10^3/uL RBC (4.70-6.10) 10^6/uL Hgb (14.0-18.0) g/dL Hct (42.0-52.0) % MCV (80.0-94.0) fL MCH (27.0-31.0) pg MCHC (32.0-36.0) g/dL RDW (12.0-15.0) % Plt Count (130-450) 10^3/uL MPV (7.4-11.4) fL Neut # (Auto) (1.5-6.6) 10^3/uL Lymph # (Auto) (1.5-3.5) 10^3/uL [place] # (Auto) (0.0-1.0) 10^3/uL Eos # (Auto) (0.0-0.7) 10^3/uL Baso # (Auto) (0.0-0.1) 10^3/uL Absolute Nucleated RBC x10^3/uL Nucleated RBC % /100WBC Sodium 147 H (135-145) mmol/L Potassium 3.7 (3.5-5.0) mmol/L Chloride 118 H (101-111) mmol/L Carbon Dioxide 22 (21-32) mmol/L Anion Gap 7.0 (6-13) BUN 26 H (6-20) mg/dL Creatinine 0.8 (0.6-1.2) mg/dL Estimated GFR (MDRD) 92 (>89) Glucose 176 H (70-100) mg/dL POC Whole Bld Glucose 227 H 153 H (70 - 100) mg/dL Calcium 8.0 L (8.5-10.3) mg/dL Phosphorus 2.6 (2.5-4.6) mg/dL Magnesium 2.2 (1.7-2.8) mg/dL Total Bilirubin 0.6 (0.2-1.0) mg/dL Direct Bilirubin 0.2 (0.1-0.5) mg/dL AST 21 (10-42) IU/L ALT 25 (10-60) IU/L Alkaline Phosphatase 52 (42-121) IU/L Total Protein 5.2 L (6.7-8.2) g/dL Albumin 2.0 L (3.2-5.5) g/dL Globulin 3.2 (2.1-4.2) g/dL 07/27/19 07/27/19 07/26/19 Range/Units 04:35 00:13 18:07 WBC 11.1 H (4.8-10.8) x10^3/uL RBC 3.22 L (4.70-6.10) 10^6/uL Hgb 10.7 L (14.0-18.0) g/dL Hct 34.3 L (42.0-52.0) % MCV 106.5 H (80.0-94.0) fL MCH 33.2 H (27.0-31.0) pg MCHC 31.2 L (32.0-36.0) g/dL RDW 14.4 (12.0-15.0) % Plt Count 292 (130-450) 10^3/uL MPV 10.3 (7.4-11.4) fL Neut # (Auto) 8.4 H (1.5-6.6) 10^3/uL Lymph # (Auto) 1.2 L (1.5-3.5) 10^3/uL [place] # (Auto) 1.3 H (0.0-1.0) 10^3/uL Eos # (Auto) 0.1 (0.0-0.7) 10^3/uL Baso # (Auto) 0.0 (0.0-0.1) 10^3/uL Absolute Nucleated RBC 0.03 x10^3/uL Nucleated RBC % 0.3 /100WBC Sodium (135-145) mmol/L Potassium (3.5-5.0) mmol/L Chloride (101-111) mmol/L Carbon Dioxide (21-32) mmol/L Anion Gap (6-13) BUN (6-20) mg/dL Creatinine (0.6-1.2) mg/dL Estimated GFR (MDRD) (>89) Glucose (70-100) mg/dL POC Whole Bld Glucose 138 H 126 H (70 - 100) mg/dL Calcium (8.5-10.3) mg/dL Phosphorus (2.5-4.6) mg/dL Magnesium (1.7-2.8) mg/dL Total Bilirubin (0.2-1.0) mg/dL Direct Bilirubin (0.1-0.5) mg/dL AST (10-42) IU/L ALT (10-60) IU/L Alkaline Phosphatase (42-121) IU/L Total Protein (6.7-8.2) g/dL Albumin (3.2-5.5) g/dL Globulin (2.1-4.2) g/dL - Current Medications Current Medications: Current Medications Generic Name Dose Route Start Last Admin Trade Name Freq PRN Reason Stop Dose Admin Chlorhexidine Gluconate 15 ml 07/22/19 09:00 07/27/19 09:33 Peridex PO 15 ml BID BRO Administration Enoxaparin Sodium 40 mg 07/21/19 09:00 07/27/19 09:34 Lovenox SUBQ 40 mg DAILY BRO Administration Heparin Sodium (Beef Lung) 30 - 50 unit 07/23/19 00:19 07/27/19 04:34 IVP 50 unit PRN PRN Administration Central Line Protocol (<24 hr) Sodium Chloride 500 mls @ 0 mls/hr 07/21/19 21:49 07/27/19 09:20 Normal Saline 0.9% IV Infused Q24H PRN Infusion TKO RATE TKO Sodium Chloride 500 mls @ 0 mls/hr 07/22/19 08:25 07/23/19 10:00 Normal Saline 0.9% IV Infused Q24H PRN Infusion TKO RATE TKO Dextrose 1,000 mls @ 83.333 mls/hr 07/27/19 09:00 07/27/19 09:20 D5w IV 83.333 mls/hr .Q12H BRO Administration Insulin Human Regular 1 - 9 unit 07/27/19 13:00 07/27/19 13:06 Humulin R SUBQ 5 unit Q6HR BRO Administration Protocol Metoprolol Tartrate 5 mg 07/25/19 23:13 07/27/19 10:27 Lopressor Inj IVP 5 mg Q6H PRN Administration Tachycardia Morphine Sulfate 2 mg 07/20/19 16:12 07/26/19 23:33 Morphine (Carpuject) IVP 2 mg Q2HR PRN Administration Pain 8 to 10 Multi-Ingred Cream/Lotion/Oil/Oint 1 applic 07/23/19 13:33 07/23/19 14:32 Lubrifresh Pm Ophth Oint EACHEYE 1 applic QPM PRN Administration Dry Eye Pantoprazole Sodium 40 mg 07/22/19 07:00 07/27/19 06:10 Protonix IVP 40 mg QDAC BRO Administration Sodium Chloride 10 ml 07/20/19 16:12 07/27/19 06:10 Normal Saline Flush 0.9% IVP 10 ml PRN PRN Administration NEEDED PER PROVIDER ORDERS Sodium Chloride 10 ml 07/21/19 01:00 07/27/19 10:31 Normal Saline Flush 0.9% IVP 10 ml 0100,0900,1700 BRO Administration Sodium Chloride 10 ml 07/22/19 01:00 07/27/19 10:31 Normal Saline Flush 0.9% IVP 10 ml 0100,0900,1700 BRO Administration Sodium Chloride 10 ml 07/21/19 20:29 07/27/19 04:34 Normal Saline Flush 0.9% IVP 10 ml PRN PRN Administration NEEDED PER PROVIDER ORDERS Sodium Chloride 10 ml 07/21/19 21:06 07/27/19 04:34 Normal Saline Flush 0.9% IVP 10 ml PRN PRN Administration NEEDED PER PROVIDER ORDERS Sodium Chloride 20 ml 07/21/19 21:49 07/24/19 04:49 Normal Saline Flush 0.9% IVP 20 ml PRN PRN Administration After Blood Draw - Physical Exam General Appearance: positive: Alert (awakens to voice. Strong handshake.) Respiratory: positive: Breath sounds nml, Rhonchi (Few rhonchi bases but god excursion bilat), Other (On 4l O2/NC) Abdomen: positive: Other (Ileostomy functioning) ABX Reporting Has patient been on IV antibiotics over the past 48 hours?: No Impression/Plan - Problem List Problem List: Improving Cont. present respiratory support. Ambulate at bedside Begin po intake sparingly
[2019-07-27] MEDS: MORPHINE 2 MG/ML CARPUJECT IVP PRN (17:26)
[2019-07-27] MEDS: METOPROLOL 5 MG/5 ML VIAL IVP SCH (17:32)
[2019-07-27] MEDS: FUROSEMIDE 40 MG/4 ML VIAL IVP SCH (18:00)
[2019-07-27 18:20] LABS: CALCIUM 8.3 mg/dL (8.5-10.3); CREATININE 0.8 mg/dL (0.6-1.2)
[2019-07-27] MEDS: POTASSIUM CHLOR 20 MEQ/100 ML 20 MEQ/100 ML BAG IV SCH ×2 (20:08→21:00)
[2019-07-28] MEDS: METOPROLOL 5 MG/5 ML VIAL IVP SCH ×5 (00:09→19:04)
[2019-07-28] MEDS: SODIUM CHLORIDE FLUSH 0.9% 10 ML SYRINGE IVP SCH ×6 (00:14→18:00)
[2019-07-28] MEDS: INSULIN REGULAR HUMAN 300 UNIT/3 ML VIAL SUBQ SCH ×4 (00:16→18:05)
[2019-07-28 04:40] LABS: BASOPHILS % (AUTO) 0.3 %; EOSINOPHILS # (AUTO) 0.5 10^3/uL (0.0-0.7); EOSINOPHILS % (AUTO) 4.2 %; HGB - HEMOGLOBIN 10.8 g/dL (14.0-18.0); LYMPHOCYTES # (AUTO) 0.9 10^3/uL (1.5-3.5); LYMPHOCYTES % (AUTO) 7.4 %; MEAN CORPUSCULAR HEMOGLOBIN 34.5 pg (27.0-31.0); MEAN CORPUSCULAR HGB CONC 32.4 g/dL (32.0-36.0); MEAN CORPUSCULAR VOLUME 106.4 fL (80.0-94.0); MEAN PLATELET VOLUME 10.4 fL (7.4-11.4); MONOCYTES # (AUTO) 0.4 10^3/uL (0.0-1.0); MONOCYTES % (AUTO) 3.8 %; NEUTROPHILS # (AUTO) 9.6 10^3/uL (1.5-6.6); NEUTROPHILS % (AUTO) 83.4 %; PLT - PLATELET COUNT 332 10^3/uL (130-450); RED BLOOD COUNT 3.13 10^6/uL (4.70-6.10); RED CELL DISTRIBUTION WIDTH 14.3 % (12.0-15.0); WHITE BLOOD COUNT 11.5 x10^3/uL (4.8-10.8)
[2019-07-28 04:50] LABS: CALCIUM 8.3 mg/dL (8.5-10.3); CREATININE 0.6 mg/dL (0.6-1.2); PHOSPHORUS 2.8 mg/dL (2.5-4.6)
[2019-07-28] MEDS: METOPROLOL 5 MG/5 ML VIAL IVP PRN ×3 (05:14→10:52)
[2019-07-28] MEDS: PANTOPRAZOLE 40 MG VIAL IVP SCH (06:46)
[2019-07-28] MEDS: SODIUM CHLORIDE 0.9% 500 ML IV PRN (07:57)
[2019-07-28] MEDS: ENOXAPARIN 40 MG/0.4 ML SYRINGE SUBQ SCH (08:54)
[2019-07-28] MEDS: CHLORHEXIDINE GLUCONATE 15 ML UDC PO SCH ×2 (09:03→22:59)
[2019-07-28] MEDS: FUROSEMIDE 40 MG/4 ML VIAL IVP SCH (09:05)
--- NOTE | 2019-07-28 10:46 | PROVIDER PROGRESS NOTE ---
Subjective - Prog Note Date Prog Note Date: 07/28/19 - Subjective Subjective: He reports feeling better this morning. He did not require BiPAP overnight. He denies chest pain, shortness of breath, abdominal pain. He is thirsty and would like to eat. Current Medications - Current Medications Current Medications: Active Medications Acetaminophen (Tylenol) 650 mg PO Q4HR PRN PRN Reason: Pain 1 to 4 Last Admin: 07/27/19 15:42 Dose: 650 mg Albuterol () 2.5 mg INH RTQ4H PRN PRN Reason: Wheezing Albuterol/Ipratropium (Duoneb) 3 ml INH RTQID PRN PRN Reason: Shortness of Air/Wheezing Chlorhexidine Gluconate (Peridex) 15 ml PO BID [facility] Last Admin: 07/28/19 09:03 Dose: 15 ml Enoxaparin Sodium (Lovenox) 40 mg SUBQ DAILY BRO Last Admin: 07/28/19 08:54 Dose: 40 mg Furosemide (Lasix Inj 40 Mg Vial) 40 mg IVP DAILY [facility] Last Admin: 07/28/19 09:05 Dose: 40 mg Heparin Sodium (Beef Lung) () 30 - 50 unit IVP PRN PRN PRN Reason: Central Line Protocol (<24 hr) Last Admin: 07/27/19 04:34 Dose: 50 unit Hydralazine HCl (Apresoline Inj) 10 mg IVP QID PRN PRN Reason: Hypertensive Emergency Sodium Chloride (Normal Saline 0.9%) 500 mls @ 0 mls/hr IV Q24H PRN PRN Reason: TKO RATE Last Admin: 07/28/19 07:57 Dose: 20 mls/hr Sodium Chloride (Normal Saline 0.9%) 500 mls @ 0 mls/hr IV Q24H PRN PRN Reason: TKO RATE Last Infusion: 07/23/19 10:00 Dose: Infused Insulin Human Regular (Humulin R) 1 - 9 unit SUBQ Q6HR [facility]; Protocol Last Admin: 07/28/19 07:05 Dose: Not Given Metoprolol Tartrate (Lopressor Inj) 5 mg IVP Q6H PRN PRN Reason: Tachycardia Last Admin: 07/28/19 07:50 Dose: 5 mg Metoprolol Tartrate (Lopressor Inj) 5 mg IVP Q6HR BRO Last Admin: 07/28/19 07:10 Dose: Not Given Morphine Sulfate (Morphine (Carpuject)) 2 mg IVP Q2HR PRN PRN Reason: Pain 8 to 10 Last Admin: 07/27/19 17:26 Dose: 2 mg Multi-Ingred Cream/Lotion/Oil/Oint (Lubrifresh Pm Ophth Oint) 1 applic EACHEYE QPM PRN PRN Reason: Dry Eye Last Admin: 07/23/19 14:32 Dose: 1 applic Ondansetron HCl (Zofran Inj) 4 mg IVP Q6HR PRN PRN Reason: Nausea / Vomiting Pantoprazole Sodium (Protonix) 40 mg IVP QDAC [facility] Last Admin: 07/28/19 06:46 Dose: 40 mg Sodium Chloride (Normal Saline Flush 0.9%) 10 ml IVP PRN PRN PRN Reason: NEEDED PER PROVIDER ORDERS Last Admin: 07/27/19 06:10 Dose: 10 ml Sodium Chloride (Normal Saline Flush 0.9%) 10 ml IVP 0100,0900,1700 [facility] Last Admin: 07/28/19 09:12 Dose: 40 ml Sodium Chloride (Normal Saline Flush 0.9%) 10 ml IVP 0100,0900,1700 [facility] Last Admin: 07/28/19 09:20 Dose: Not Given Sodium Chloride (Normal Saline Flush 0.9%) 10 ml IVP PRN PRN PRN Reason: NEEDED PER PROVIDER ORDERS Last Admin: 07/27/19 04:34 Dose: 10 ml Sodium Chloride (Normal Saline Flush 0.9%) 10 ml IVP PRN PRN PRN Reason: NEEDED PER PROVIDER ORDERS Last Admin: 07/27/19 04:34 Dose: 10 ml Sodium Chloride (Normal Saline Flush 0.9%) 20 ml IVP PRN PRN PRN Reason: After Blood Draw Last Admin: 07/24/19 04:49 Dose: 20 ml Aspirin [Aspirin EC] 81 mg PO DAILY 09/09/17 Atorvastatin [Lipitor] 10 mg PO DAILY 09/09/17 Calcium Carbonate/Vitamin D3 [Calcium 500-Vit D3 600 Caplet] 1 tab PO DAILY 09/09/17 Carvedilol Phosphate [Coreg Cr] 40 mg PO DAILY 09/09/17 Doxycycline Hyclate 50 mg PO DAILY 09/09/17 Krill Oil/[place]-3/Dha/Epa [[place]-3 Krill Oil Softgel] 1 cap PO DAILY 09/09/17 Lutein/Zeaxanthin [Ocuvite Lutein 25-5 mg Softgel] 1 cap PO DAILY 09/09/17 Ubidecarenone [Co Q-10] 300 mg PO DAILY 09/09/17 dilTIAZem HCl [Diltiazem 24Hr Cd] 300 mg PO DAILY 09/09/17 L. Acidophilus/L. Rhamnosus [Probiotic 15 Billion Cell Cap] 1 each PO DAILY 07/21/19 Lisinopril [Prinivil] 20 mg PO BID 07/21/19 Multivitamin,Therapeutic [Thera] 1 each PO DAILY 07/21/19 Objective - Vital Signs/Intake & Output Reviewed Vital Signs: Yes Vital Signs: Vital Signs x48h Temp Pulse Resp BP BP Pulse Ox 07/28/19 10:00 108 H 25 H 105/58 L 93 07/28/19 09:20 117/72 07/28/19 09:00 97 30 H 117/72 95 07/28/19 08:15 97 122/76 07/28/19 08:00 36.4 C L 95 29 H 109/65 95 07/28/19 07:55 147 H 111/75 07/28/19 07:52 159 H 113/82 H 07/28/19 07:50 118/84 H 07/28/19 07:43 155 H 118/84 H 07/28/19 07:10 112/70 07/28/19 07:00 102 H 22 119/77 95 07/28/19 06:00 98 27 H 117/78 96 07/28/19 05:44 117/76 07/28/19 05:14 138/79 H 07/28/19 05:00 111 H 24 130/84 H 96 07/28/19 04:00 104 H 29 H 129/98 H 100 07/28/19 03:00 107 H 22 130/89 H 100 Intake & Output: Intake & Output 07/25/19 07/26/19 07/27/19 07/28/19 23:59 23:59 23:59 23:59 Intake Total 4651.997 2716.2 3009.442 Output Total 1014 2820 1892 1435 Balance 3637.997 -103.8 1117.442 -1435 - Objective General Appearance: positive: No acute distress, Alert Eyes Bilateral: positive: Normal inspection ENT: positive: ENT inspection nml, Other (Nasal cannula in place.) Neck: positive: Nml inspection Respiratory: positive: No respiratory distress, Other (Is slightly tachypneic but this is improved compared to yesterday. Diminished breath sounds in the bases.). negative: Wheezes, Rales Cardiovascular: positive: No murmur, Tachycardia. negative: Bradycardia, Systolic murmur, Diastolic murmur Abdomen: positive: Non-tender, Other (His abdomen is distended but soft. Ileostomy is in place.). negative: No distention Skin: positive: No rash, Warm, Dry Extremities: positive: No pedal edema Neurologic/Psychiatric: positive: Other (Has general motor weakness but no focal motor deficits.). negative: Disoriented to person, Disoriented to place - Lab Results Fish Bones: 07/28/19 04:05 07/28/19 04:05 Other Labs: Lab Results x24hrs 07/28/19 07/28/19 07/28/19 Range/Units 04:05 04:05 04:05 WBC (4.8-10.8) x10^3/uL RBC (4.70-6.10) 10^6/uL Hgb (14.0-18.0) g/dL Hct (42.0-52.0) % MCV (80.0-94.0) fL MCH (27.0-31.0) pg MCHC (32.0-36.0) g/dL RDW (12.0-15.0) % Plt Count (130-450) 10^3/uL MPV (7.4-11.4) fL Neut # (Auto) (1.5-6.6) 10^3/uL Lymph # (Auto) (1.5-3.5) 10^3/uL [place] # (Auto) (0.0-1.0) 10^3/uL Eos # (Auto) (0.0-0.7) 10^3/uL Baso # (Auto) (0.0-0.1) 10^3/uL Absolute Nucleated RBC x10^3/uL Nucleated RBC % /100WBC Sodium (135-145) mmol/L Potassium (3.5-5.0) mmol/L Chloride (101-111) mmol/L Carbon Dioxide (21-32) mmol/L Anion Gap (6-13) BUN (6-20) mg/dL Creatinine (0.6-1.2) mg/dL Estimated GFR (MDRD) (>89) Glucose (70-100) mg/dL POC Whole Bld Glucose (70 - 100) mg/dL Calcium (8.5-10.3) mg/dL Phosphorus (2.5-4.6) mg/dL Magnesium (1.7-2.8) mg/dL Troponin I High Sens (2.3-19.7) ng/L B-Natriuretic Peptide 2929 H (5-100) pg/mL Albumin 1.9 L (3.2-5.5) g/dL TSH 1.69 (0.34-5.60) uIU/mL 07/28/19 07/28/19 07/28/19 Range/Units 04:05 04:05 00:07 WBC 11.5 H (4.8-10.8) x10^3/uL RBC 3.13 L (4.70-6.10) 10^6/uL Hgb 10.8 L (14.0-18.0) g/dL Hct 33.3 L (42.0-52.0) % MCV 106.4 H (80.0-94.0) fL MCH 34.5 H (27.0-31.0) pg MCHC 32.4 (32.0-36.0) g/dL RDW 14.3 (12.0-15.0) % Plt Count 332 (130-450) 10^3/uL MPV 10.4 (7.4-11.4) fL Neut # (Auto) 9.6 H (1.5-6.6) 10^3/uL Lymph # (Auto) 0.9 L (1.5-3.5) 10^3/uL [place] # (Auto) 0.4 (0.0-1.0) 10^3/uL Eos # (Auto) 0.5 (0.0-0.7) 10^3/uL Baso # (Auto) 0.0 (0.0-0.1) 10^3/uL Absolute Nucleated RBC 0.02 x10^3/uL Nucleated RBC % 0.2 /100WBC Sodium 149 H (135-145) mmol/L Potassium 3.7 (3.5-5.0) mmol/L Chloride 119 H (101-111) mmol/L Carbon Dioxide 24 (21-32) mmol/L Anion Gap 6.0 (6-13) BUN 25 H (6-20) mg/dL Creatinine 0.6 (0.6-1.2) mg/dL Estimated GFR (MDRD) 129 (>89) Glucose 127 H (70-100) mg/dL POC Whole Bld Glucose 128 H (70 - 100) mg/dL Calcium 8.3 L (8.5-10.3) mg/dL Phosphorus 2.8 (2.5-4.6) mg/dL Magnesium 2.0 (1.7-2.8) mg/dL Troponin I High Sens (2.3-19.7) ng/L B-Natriuretic Peptide (5-100) pg/mL Albumin (3.2-5.5) g/dL TSH (0.34-5.60) uIU/mL 07/27/19 07/27/19 07/27/19 Range/Units 18:13 18:01 18:01 WBC (4.8-10.8) x10^3/uL RBC (4.70-6.10) 10^6/uL Hgb (14.0-18.0) g/dL Hct (42.0-52.0) % MCV (80.0-94.0) fL MCH (27.0-31.0) pg MCHC (32.0-36.0) g/dL RDW (12.0-15.0) % Plt Count (130-450) 10^3/uL MPV (7.4-11.4) fL Neut # (Auto) (1.5-6.6) 10^3/uL Lymph # (Auto) (1.5-3.5) 10^3/uL [place] # (Auto) (0.0-1.0) 10^3/uL Eos # (Auto) (0.0-0.7) 10^3/uL Baso # (Auto) (0.0-0.1) 10^3/uL Absolute Nucleated RBC x10^3/uL Nucleated RBC % /100WBC Sodium 145 (135-145) mmol/L Potassium 3.4 L (3.5-5.0) mmol/L Chloride 118 H (101-111) mmol/L Carbon Dioxide 22 (21-32) mmol/L Anion Gap 5.0 L (6-13) BUN 26 H (6-20) mg/dL Creatinine 0.8 (0.6-1.2) mg/dL Estimated GFR (MDRD) 92 (>89) Glucose 161 H (70-100) mg/dL POC Whole Bld Glucose 141 H (70 - 100) mg/dL Calcium 8.3 L (8.5-10.3) mg/dL Phosphorus (2.5-4.6) mg/dL Magnesium (1.7-2.8) mg/dL Troponin I High Sens 135.4 H* (2.3-19.7) ng/L B-Natriuretic Peptide (5-100) pg/mL Albumin (3.2-5.5) g/dL TSH (0.34-5.60) uIU/mL 07/27/19 07/27/19 Range/Units 14:22 12:15 WBC (4.8-10.8) x10^3/uL RBC (4.70-6.10) 10^6/uL Hgb (14.0-18.0) g/dL Hct (42.0-52.0) % MCV (80.0-94.0) fL MCH (27.0-31.0) pg MCHC (32.0-36.0) g/dL RDW (12.0-15.0) % Plt Count (130-450) 10^3/uL MPV (7.4-11.4) fL Neut # (Auto) (1.5-6.6) 10^3/uL Lymph # (Auto) (1.5-3.5) 10^3/uL [place] # (Auto) (0.0-1.0) 10^3/uL Eos # (Auto) (0.0-0.7) 10^3/uL Baso # (Auto) (0.0-0.1) 10^3/uL Absolute Nucleated RBC x10^3/uL Nucleated RBC % /100WBC Sodium (135-145) mmol/L Potassium (3.5-5.0) mmol/L Chloride (101-111) mmol/L Carbon Dioxide (21-32) mmol/L Anion Gap (6-13) BUN (6-20) mg/dL Creatinine (0.6-1.2) mg/dL Estimated GFR (MDRD) (>89) Glucose (70-100) mg/dL POC Whole Bld Glucose 227 H (70 - 100) mg/dL Calcium (8.5-10.3) mg/dL Phosphorus (2.5-4.6) mg/dL Magnesium (1.7-2.8) mg/dL Troponin I High Sens 142.8 H* (2.3-19.7) ng/L B-Natriuretic Peptide (5-100) pg/mL Albumin (3.2-5.5) g/dL TSH (0.34-5.60) uIU/mL ABX Reporting Has patient been on IV antibiotics over the past 48 hours?: No Sepsis Event Note (H) - Evaluation Current Stage of Sepsis: Ruled out Assessment/Plan - Problem List (1) Acute respiratory failure with hypoxia Impression: To needs to improve from respiratory stand of view. He is now on 2 L of oxygen via nasal cannula. He did not require BiPAP throughout the day yesterday. Hypoxia secondary to pulmonary vascular congestion and pleural effusion in the setting of new heart failure. We will continue to diurese him with IV Lasix. Continue to wean the oxygen as tolerated for goal saturation greater than 92%. (2) Acute systolic (congestive) heart failure Impression: The new finding for him. Echocardiogram yesterday revealed an ejection fraction of 20 to 25%. His troponins were elevated in the 130s but are trending down. He reports no chest pain. EKG without obvious signs of ischemia. Do not suspect that he had ACS as the cause of his heart failure. This may have been an old finding that is evident now. He does appear slightly hypervolemic given his elevated BNP and pulmonary vascular congestion. Will diurese him with IV Lasix at this time. He will need goal-directed therapy on discharge and outpatient cardiology follow-up. The echo was also concerning for LV thrombus. I discussed this with the on-call crowning hammer operator and upon further review, they believe it is likely the endocardium and not an actual thrombus. They recommended repeating a limited echocardiogram with Defiinity. This will be done today. If there is concern for thrombus, he will need to be anticoagulated. (3) Paroxysmal atrial fibrillation with rapid ventricular response Impression: He has been in and out of sinus rhythm throughout the past 24 hours. When he is in A. fib, his rates are in the 150s and 160s. We will continue standing Lopressor IV for rate control. Will consider digoxin loading dose if he remains difficult to rate control. Will avoid calcium channel blockers given his heart failure.He will need anticoagulation at some point. (4) Bowel obstruction Impression: Status post total colectomy on July 21. 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 3 out of 17 mesenteric lymph nodes were positive. He will require outpatient oncology follow-up. Pleated 5 days of IV Zosyn as he had toxic megacolon on presentation.Unable to pass his swallow evaluation and therefore we will place a Dobbhoff today via radiology. We will continue tube feeds over the weekend and asked speech to reevaluate him on Wednesday. 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 3 out of 17 mesenteric lymph nodes were positive. CT did show a 2cm lesion in the Liver. Unclear if this is metastatic or not. He will require outpatient oncology follow-up (6) Physical deconditioning Impression: He continues to improve on a daily basis from a strength point of view. We will continue with physical therapy as tolerated. He will require a SNF on discharge. (7) Hypernatremia Impression: This is secondary to decreased free water intake as well as diuresis with IV Lasix. His sodium is elevated at 149. Will restart free water pushes via the Dobbhoff once it is placed. If his sodium continues to rise, will start D5 water. (8) Alcohol abuse Impression: He is no longer going through alcohol withdrawal. (9) HTN (hypertension) Impression: He is currently normotensive. We will continue with standing Lopressor IV. Will resume his home antihypertensives as tolerated.
[2019-07-28] MEDS ORDERED: LIDOCAINE JELLY 2% 5 ML TUBE TOP ONE (10:49)
[2019-07-28] MEDS: METOPROLOL 5 MG/5 ML VIAL IVP STA ×2 (11:13→17:11)
[2019-07-28] MEDS ORDERED: IOTHALAMATE MEGLUMINE 50 ML VIAL ONE (11:50)
--- NOTE | 2019-07-28 13:18 | PROVIDER PROGRESS NOTE ---
Subjective - General Admit Date: 07/20/19 Procedure Date: 07/21/19 Post Op Days: 7 Procedure Performed: Exploratory Laparotomy with total abdominal colectomy and Dang's pouch - Review of Systems Wound/Incisions: positive: Dressing dry and intact General: positive: No symptoms (On ventillator) Pulmonary: positive: Other (Ventillator) Cardiovascular: positive: No symptoms Gastrointestinal: positive: Other (Ileostomy beginning to function) Genitourinary: positive: Other (Kern cath output 20-30ml/hr Scrotal edema) Skin: positive: No symptoms Objective - Patient Data Vital Signs: Vital Signs x48h Temp Pulse Resp BP BP Pulse Ox 07/28/19 13:00 104 H 34 H 125/82 H 98 07/28/19 12:41 36.4 C L 07/28/19 12:00 108 H 33 H 127/84 H 95 07/28/19 11:18 109/77 07/28/19 11:00 133 H 24 109/77 99 07/28/19 10:52 123/87 H 07/28/19 10:00 108 H 25 H 105/58 L 93 07/28/19 09:20 117/72 07/28/19 09:00 97 30 H 117/72 95 07/28/19 08:15 97 122/76 07/28/19 08:00 36.4 C L 95 29 H 109/65 95 07/28/19 07:55 147 H 111/75 07/28/19 07:52 159 H 113/82 H 07/28/19 07:50 118/84 H 07/28/19 07:43 155 H 118/84 H 07/28/19 07:10 112/70 07/28/19 07:00 102 H 22 119/77 95 07/28/19 06:00 98 27 H 117/78 96 07/28/19 05:44 117/76 Weight: Weight 07/26/19 07/27/19 07/28/19 23:59 23:59 23:59 Weight (kg) 82 kg 83.5 kg 82 kg Intake & Output: Intake and Output Totals x24h 07/26/19 07/27/19 07/28/19 23:59 23:59 23:59 Intake Total 2716.2 3009.442 Output Total 2820 1892 2095 Balance -103.8 1117.442 -6634 - Lab Results Lab Results: 07/28/19 04:05 07/28/19 04:05 Other Lab Results: Lab Results x24hrs 07/28/19 07/28/19 07/28/19 Range/Units 12:37 04:05 04:05 WBC (4.8-10.8) x10^3/uL RBC (4.70-6.10) 10^6/uL Hgb (14.0-18.0) g/dL Hct (42.0-52.0) % MCV (80.0-94.0) fL MCH (27.0-31.0) pg MCHC (32.0-36.0) g/dL RDW (12.0-15.0) % Plt Count (130-450) 10^3/uL MPV (7.4-11.4) fL Neut # (Auto) (1.5-6.6) 10^3/uL Lymph # (Auto) (1.5-3.5) 10^3/uL [place] # (Auto) (0.0-1.0) 10^3/uL Eos # (Auto) (0.0-0.7) 10^3/uL Baso # (Auto) (0.0-0.1) 10^3/uL Absolute Nucleated RBC x10^3/uL Nucleated RBC % /100WBC Sodium (135-145) mmol/L Potassium (3.5-5.0) mmol/L Chloride (101-111) mmol/L Carbon Dioxide (21-32) mmol/L Anion Gap (6-13) BUN (6-20) mg/dL Creatinine (0.6-1.2) mg/dL Estimated GFR (MDRD) (>89) Glucose (70-100) mg/dL POC Whole Bld Glucose 116 H (70 - 100) mg/dL Calcium (8.5-10.3) mg/dL Phosphorus (2.5-4.6) mg/dL Magnesium (1.7-2.8) mg/dL Troponin I High Sens (2.3-19.7) ng/L B-Natriuretic Peptide 2929 H (5-100) pg/mL Albumin 1.9 L (3.2-5.5) g/dL TSH (0.34-5.60) uIU/mL 07/28/19 07/28/19 07/28/19 Range/Units 04:05 04:05 04:05 WBC 11.5 H (4.8-10.8) x10^3/uL RBC 3.13 L (4.70-6.10) 10^6/uL Hgb 10.8 L (14.0-18.0) g/dL Hct 33.3 L (42.0-52.0) % MCV 106.4 H (80.0-94.0) fL MCH 34.5 H (27.0-31.0) pg MCHC 32.4 (32.0-36.0) g/dL RDW 14.3 (12.0-15.0) % Plt Count 332 (130-450) 10^3/uL MPV 10.4 (7.4-11.4) fL Neut # (Auto) 9.6 H (1.5-6.6) 10^3/uL Lymph # (Auto) 0.9 L (1.5-3.5) 10^3/uL [place] # (Auto) 0.4 (0.0-1.0) 10^3/uL Eos # (Auto) 0.5 (0.0-0.7) 10^3/uL Baso # (Auto) 0.0 (0.0-0.1) 10^3/uL Absolute Nucleated RBC 0.02 x10^3/uL Nucleated RBC % 0.2 /100WBC Sodium 149 H (135-145) mmol/L Potassium 3.7 (3.5-5.0) mmol/L Chloride 119 H (101-111) mmol/L Carbon Dioxide 24 (21-32) mmol/L Anion Gap 6.0 (6-13) BUN 25 H (6-20) mg/dL Creatinine 0.6 (0.6-1.2) mg/dL Estimated GFR (MDRD) 129 (>89) Glucose 127 H (70-100) mg/dL POC Whole Bld Glucose (70 - 100) mg/dL Calcium 8.3 L (8.5-10.3) mg/dL Phosphorus 2.8 (2.5-4.6) mg/dL Magnesium 2.0 (1.7-2.8) mg/dL Troponin I High Sens (2.3-19.7) ng/L B-Natriuretic Peptide (5-100) pg/mL Albumin (3.2-5.5) g/dL TSH 1.69 (0.34-5.60) uIU/mL 07/28/19 07/27/19 07/27/19 Range/Units 00:07 18:13 18:01 WBC (4.8-10.8) x10^3/uL RBC (4.70-6.10) 10^6/uL Hgb (14.0-18.0) g/dL Hct (42.0-52.0) % MCV (80.0-94.0) fL MCH (27.0-31.0) pg MCHC (32.0-36.0) g/dL RDW (12.0-15.0) % Plt Count (130-450) 10^3/uL MPV (7.4-11.4) fL Neut # (Auto) (1.5-6.6) 10^3/uL Lymph # (Auto) (1.5-3.5) 10^3/uL [place] # (Auto) (0.0-1.0) 10^3/uL Eos # (Auto) (0.0-0.7) 10^3/uL Baso # (Auto) (0.0-0.1) 10^3/uL Absolute Nucleated RBC x10^3/uL Nucleated RBC % /100WBC Sodium (135-145) mmol/L Potassium (3.5-5.0) mmol/L Chloride (101-111) mmol/L Carbon Dioxide (21-32) mmol/L Anion Gap (6-13) BUN (6-20) mg/dL Creatinine (0.6-1.2) mg/dL Estimated GFR (MDRD) (>89) Glucose (70-100) mg/dL POC Whole Bld Glucose 128 H 141 H (70 - 100) mg/dL Calcium (8.5-10.3) mg/dL Phosphorus (2.5-4.6) mg/dL Magnesium (1.7-2.8) mg/dL Troponin I High Sens 135.4 H* (2.3-19.7) ng/L B-Natriuretic Peptide (5-100) pg/mL Albumin (3.2-5.5) g/dL TSH (0.34-5.60) uIU/mL 07/27/19 07/27/19 Range/Units 18:01 14:22 WBC (4.8-10.8) x10^3/uL RBC (4.70-6.10) 10^6/uL Hgb (14.0-18.0) g/dL Hct (42.0-52.0) % MCV (80.0-94.0) fL MCH (27.0-31.0) pg MCHC (32.0-36.0) g/dL RDW (12.0-15.0) % Plt Count (130-450) 10^3/uL MPV (7.4-11.4) fL Neut # (Auto) (1.5-6.6) 10^3/uL Lymph # (Auto) (1.5-3.5) 10^3/uL [place] # (Auto) (0.0-1.0) 10^3/uL Eos # (Auto) (0.0-0.7) 10^3/uL Baso # (Auto) (0.0-0.1) 10^3/uL Absolute Nucleated RBC x10^3/uL Nucleated RBC % /100WBC Sodium 145 (135-145) mmol/L Potassium 3.4 L (3.5-5.0) mmol/L Chloride 118 H (101-111) mmol/L Carbon Dioxide 22 (21-32) mmol/L Anion Gap 5.0 L (6-13) BUN 26 H (6-20) mg/dL Creatinine 0.8 (0.6-1.2) mg/dL Estimated GFR (MDRD) 92 (>89) Glucose 161 H (70-100) mg/dL POC Whole Bld Glucose (70 - 100) mg/dL Calcium 8.3 L (8.5-10.3) mg/dL Phosphorus (2.5-4.6) mg/dL Magnesium (1.7-2.8) mg/dL Troponin I High Sens 142.8 H* (2.3-19.7) ng/L B-Natriuretic Peptide (5-100) pg/mL Albumin (3.2-5.5) g/dL TSH (0.34-5.60) uIU/mL - Current Medications Current Medications: Current Medications Generic Name Dose Route Start Last Admin Trade Name Freq PRN Reason Stop Dose Admin Acetaminophen 650 mg 07/20/19 16:12 07/27/19 15:42 Tylenol PO 650 mg Q4HR PRN Administration Pain 1 to 4 Chlorhexidine Gluconate 15 ml 07/22/19 09:00 07/28/19 09:03 Peridex PO 15 ml BID [facility] Administration Enoxaparin Sodium 40 mg 07/21/19 09:00 07/28/19 08:54 Lovenox SUBQ 40 mg DAILY BRO Administration Furosemide 40 mg 07/27/19 17:22 07/28/19 09:05 Lasix Inj 40 Mg Vial IVP 40 mg DAILY [facility] Administration Heparin Sodium (Beef Lung) 30 - 50 unit 07/23/19 00:19 07/27/19 04:34 IVP 50 unit PRN PRN Administration Central Line Protocol (<24 hr) Sodium Chloride 500 mls @ 0 mls/hr 07/21/19 21:49 07/28/19 07:57 Normal Saline 0.9% IV 20 mls/hr Q24H PRN Administration TKO RATE TKO Sodium Chloride 500 mls @ 0 mls/hr 07/22/19 08:25 07/23/19 10:00 Normal Saline 0.9% IV Infused Q24H PRN Infusion TKO RATE TKO Insulin Human Regular 1 - 9 unit 07/27/19 13:00 07/28/19 07:05 Humulin R SUBQ Not Given Q6HR [facility] Protocol Metoprolol Tartrate 5 mg 07/25/19 23:13 07/28/19 10:52 Lopressor Inj IVP 5 mg Q6H PRN Administration Tachycardia Metoprolol Tartrate 5 mg 07/27/19 18:00 07/28/19 07:10 Lopressor Inj IVP Not Given Q6HR [facility] Morphine Sulfate 2 mg 07/20/19 16:12 07/27/19 17:26 Morphine (Carpuject) IVP 2 mg Q2HR PRN Administration Pain 8 to 10 Multi-Ingred Cream/Lotion/Oil/Oint 1 applic 07/23/19 13:33 07/23/19 14:32 Lubrifresh Pm Ophth Oint EACHEYE 1 applic QPM PRN Administration Dry Eye Pantoprazole Sodium 40 mg 07/22/19 07:00 07/28/19 06:46 Protonix IVP 40 mg QDAC BRO Administration Sodium Chloride 10 ml 07/20/19 16:12 07/27/19 06:10 Normal Saline Flush 0.9% IVP 10 ml PRN PRN Administration NEEDED PER PROVIDER ORDERS Sodium Chloride 10 ml 07/21/19 01:00 07/28/19 09:12 Normal Saline Flush 0.9% IVP 40 ml 0100,0900,1700 BRO Administration Sodium Chloride 10 ml 07/22/19 01:00 07/28/19 09:20 Normal Saline Flush 0.9% IVP Not Given 0100,0900,1700 BRO Sodium Chloride 10 ml 07/21/19 20:29 07/27/19 04:34 Normal Saline Flush 0.9% IVP 10 ml PRN PRN Administration NEEDED PER PROVIDER ORDERS Sodium Chloride 10 ml 07/21/19 21:06 07/27/19 04:34 Normal Saline Flush 0.9% IVP 10 ml PRN PRN Administration NEEDED PER PROVIDER ORDERS Sodium Chloride 20 ml 07/21/19 21:49 07/24/19 04:49 Normal Saline Flush 0.9% IVP 20 ml PRN PRN Administration After Blood Draw - Physical Exam Wound/Incisions: positive: Dressing dry and intact General Appearance: positive: No acute distress Respiratory: positive: No respiratory distress Abdomen: positive: Other (and tympanitcDistended) Impression/Plan - Problem List Problem List: See Hospitalist note. Begin gradual tube feedings, ambulate w/assist.
[2019-07-28] MEDS: SODIUM CHLORIDE FLUSH 0.9% 10 ML SYRINGE IVP PRN ×2 (13:21→19:07)
[2019-07-28] MEDS ORDERED: PERFLUTREN LIPID MICROSPHERES 1.65 MG/1.5 ML VIAL IVP ONE (13:59)
[2019-07-28] MEDS ORDERED: MIN OIL/DIMETHICON/COCONUT OIL 92 GM TUBE TOP PRN (14:49)
--- NOTE | 2019-07-28 16:43 | XRAY Report ---
Reason: Dobhoff placement. Procedure Date: 07/28/2019 Accession Number: [id number] / [id number] Procedure: FL - Fluoro Independent Procedure CPT Code: Final Report FULL RESULT: EXAM: FLUOROSCOPIC GUIDANCE EXAM DATE: 07/28/2019 12:00 PM. CLINICAL HISTORY: Dobbhoff placement. COMPARISON: ABDOMEN 1 VIEW 07/21/2019 12:24 PM. FINDINGS: Tip of weighted tip feeding tube is at the junction of third and fourth portion of duodenum. IMPRESSION: Fluoroscopic guidance provided for feeding tube placement. Total fluoroscopy time: 1 minute 47 seconds. Number of images: 1. RADIA
[2019-07-28] MEDS ORDERED: METOPROLOL 5 MG/5 ML VIAL IVP STA (17:30)
[2019-07-28] MEDS ORDERED: DIGOXIN 500 MCG/2 ML AMP IVP STA (17:57)
[2019-07-28 20:40] LABS: CALCIUM 8.1 mg/dL (8.5-10.3); CREATININE 0.8 mg/dL (0.6-1.2)
--- NOTE | 2019-07-29 01:18 | XRAY Report ---
Reason: severe aspiration Procedure Date: 07/29/2019 Accession Number: [id number] / [id number] Procedure: XR - Chest 1 View X-Ray CPT Code: 84345 Final Report FULL RESULT: EXAM: CHEST RADIOGRAPHY EXAM DATE: 07/29/2019 12:28 AM. CLINICAL HISTORY: Severe aspiration. COMPARISON: CHEST 1 VIEW 07/26/2019 7:28 AM. TECHNIQUE: 1 view. FINDINGS: Support devices: Multiple support devices are stable. Lungs/Pleura: Moderate bibasilar opacities are stable. No gross pneumothorax. No increasing effusion. Mediastinum: Stable heart size. No mediastinal shift. Other: None. IMPRESSION: 1. Stable support devices. 2. Moderate bibasilar opacities are grossly stable. RADIA
[2019-07-29] MEDS: SODIUM CHLORIDE FLUSH 0.9% 10 ML SYRINGE IVP SCH (01:40)
--- NOTE | 2019-07-29 01:43 | XRAY Report ---
Reason: POD #8 for bowel resection, now w pain, distension Procedure Date: 07/29/2019 Accession Number: [id number] / [id number] Procedure: XR - Abdomen 1 View X-Ray CPT Code: 97566 Final Report FULL RESULT: EXAM: ABDOMEN RADIOGRAPHY EXAM DATE: 07/29/2019 01:04 AM. CLINICAL HISTORY: POD 8 for bowel resection, now w pain, distension. COMPARISON: ABDOMEN 1 VIEW 07/21/2019 12:24 PM. TECHNIQUE: Upright view. FINDINGS: Bowel Gas Pattern: Multiple dilated loops of small bowel. Other: Weighted feeding tube terminating in the duodenum. Skin clips. IMPRESSION: Postoperative changes. Multiple dilated small bowel loops. No free gas seen. RADIA
--- NOTE | 2019-07-29 02:14 | PROVIDER PROGRESS NOTE ---
[employer] Learning Support Teacher Note - [employer] Learning Support Teacher Note [employer] Learning Support Teacher Note: July 29, 2019 02: 15 RN called me to see the patient approximately 1130 tonight. He is postoperative day 8 for a colon resection, Dang's pouch, and ileostomy for toxic megacolon and probable colon cancer with mets to the liver. Today has been complicated by in and out of atrial fibrillation. His respiratory status has been improving so that he has been off of oxygen. Tube feedings were started today. Nurse reports that he has been having increasing distended abdomen starting around 7:00. Last audible bowel tones around 6 PM. His ostomy bag is full of gas. No stool yet. At approximately 1130 she checked on him and found him to have aspirated. Brown bilious material. O2 sats a drop. Heart rate went back up into the 130s. Selected Entries 07/28/19 23:00 Respiratory 126 H Rate Blood Pressure 135/84 H [Left Brachial artery] O2 Saturation 95 These vital signs are before he had his incident. With the incident his blood pressure is stable, heart rate is in the 130s, and O2 sat is 100% on a n onrebreather. Vigorous suction has been done. Trying to get a lot of that aspirated material out of his mouth and back of his throat. is at the bedside and tearful because this is a setback. On examination right eye is open. Left eye lid has drifted shut. Course upper airway sounds diffusely that are very rhonchorous and wet sounding with respiratory rate in the 20s to low 30s. Tachycardic irregular rate and rhythm. The abdomen is tympanitic, distended, and I am not hearing bowel sounds. It is not rigid. While he is uncomfortable with palpation and tells me so, it is not very painful. Plain film of the abdomen shows dilated loops of small bowel, no free air Plain film of the chest shows the stable bilateral bibasilar opacities without change Assessment/plan 1. Acute respiratory failure with hypoxia from aspiration. This gentleman is already being treated for pneumonia and had been on Zosyn and Flagyl. He had successfully come off pressors. Now a new setback. He initially required 15 L of a nonrebreather. We have changed him to high flow oxygen and he is 92% saturated on 7 L. Plan: Remove Dobbhoff feeding tube General surgery notified NG placed to low intermittent suction No antibiotics at this time unless he spikes a fever or has further decompensation. Continue to closely monitor respiratory status Long discussion with his . She is understandably upset. Is been an up-and-down roller coaster course. 2. Probable ileus. He has dilated loops of small bowel. Not tolerating tube feeds. Again, general surgery has been notified. NG tube placed, low intermittent suction.
[2019-07-29] MEDS ORDERED: ACETAMINOPHEN 1,000 MG/100 ML 100 ML IV PRN (02:44)
[2019-07-29 02:50] VITALS: BP 115/65
--- NOTE | 2019-07-29 08:05 | Discharge Plan ---
Discharge Plan Problem Reviewed?: Yes Disposition: 20 No Smoking: If you smoke, Please STOP! Call for help. Follow-up with: Nereyda Dowell PA [Primary Care Provider] -
--- NOTE | 2019-07-29 23:48 | DISCHARGE SUMMARY ---
"Discharge Summary Discharge Disposition: 20 - DIAGNOSES Discharge Diagnoses with Status of Each Condition: 1. Toxic megacolon 2. 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 Intestinal necrosis 4. Acute respiratory failure with hypoxia 5. Shock due to systemic infection next line 6 aspiration pneumonia due to gastric secretions 7. Acute systolic congestive heart failure, new diagnosis 8. Dehydration 9. Hyperchloremic metabolic acidosis [place] 10. paroxysmal atrial fibrillation with rapid ventricular response 11. Alcohol abuse 12. Hypertension 13. History of coronary artery disease 14. Physical deconditioning 15. 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 HLD, CAD, who presents ER by private vehicle accompanied by his , complain of abdominal distension. pt report he has abdominal distended for three days. He report he did not have bowel movement for three days as well. He denies nausea, vomiting or abdominal pain. He report he did not eat much for three days because of distended abdomen. he report he never had EGD or colonoscopy. He report he has long-standing issues with his left eye. he also report he has generalized weakness and multiple falls but without injury. He denies any history of abdominal surgeries. He denies recent weight loss, GI bleed. CT of abdomen reveals dilated small and large bowel with abrupt transition to normal caliber in the proximal sigmoid colon, concerning for occul t colon cancer. surgeon Dr. Guajardo was consulted. Dr. Guajardo recommended to have return flow enema for pt. pt is admitted for above medical reason. - Past Medical History Cardiovascular: reports: Hypertension, High cholesterol, Coronary artery disease HEENT: reports: None - CONSULTS | PROCEDURES Procedures: 1. Abdomen pelvis CT with a 2 cm hypoenhancing lesion within the posterior aspect of the liver. Fatty infiltration. Trace right pleural effusion with right lower lobe segment atelectasis. Groundglass opacities within the left lingula and left lower lobe. Cardiomegaly. Dilated small and large bowel foci of pseudo-pneumatosis seen within the a sending colon and cecum. No obvious bowel wall thickening. Abrupt transition to normal caliber within the proximal sigmoid colon. No obvious mass. 2. Multiple chest x-rays showing bibasilar atelectasis. This was in spite of severe aspiration on the morning of July 29. That chest x-ray was also stable and relatively unchanged. 3. Abdomen plain film done on the morning of showed multiple dilated loops of small bowel. No free air. 4. Blood cultures negative after 5 days. 5. Total abdominal colectomy, Kaz pouch, and ileostomy July 21. . Pathology showed infiltrating colonic adenocarcinoma, 3 cm x 3 cm x 1.3 cm. Poorly differentiated. 3 of 17 mesenteric nodes positive. - HOSPITAL COURSE Hospital Course: He presented his abdominal pain and distention. In the emergency room he was felt to be dehydrated, and bowel obstruction was suspected. CAT scan of the abdomen confirmed probable obstruction. This gentleman underwent a total colectomy, Dang's pouch, and end ileostomy for toxic megacolon, necrotic bowel, caused by colon cancer. Final pathology did show 3 lymph nodes positive. There is suspicion that he had metastatic disease to the liver. Postoperatively he developed acute respiratory failure with hypoxia that required prolonged intubation. Even after extubation, he required BiPAP. Various causes of his respiratory failure were treated including fluid overload, atelectasis. He had episodes of atrial fibrillation that needed rate control with beta-blockers and digoxin. He developed hyperchloremic metabolic acidosis from use of normal saline. He was found to have a history of alcohol abuse confirmed by his and he received thiamine and folate. Troponins and telemetry were monitored closely because of his history of coronary artery disease.While there was a rise in troponin to the 140s. This is considered a positive rise, he was not felt to have a myocardial infarction but more a demand response to the tachycardia and atrial fibrillation with RVR. He was finally turning the corner, rate was being controlled, and he was coming off oxygen. Dobbhoff feeding tube was inserted and he began to have tube feedings. Over the course of 48 hours his abdomen became more distended with air. This is in spite of his colostomy bag having air in it. Atrial fibrillation became more uncontrolled and he needed increasing beta-deidre and dig loading. General surgery felt that he may need digital manipulation of his ostomy to open that up and was planning to do that. However, the patient had massive aspiration of his gastric secretions and tube feeds. He immediately desaturated, had further respiratory failure, put on BiPAP or high flow oxygen. Dobbhoff was removed, NG tube placed, and there was immediate 500 cc removed. Chest x-ray showed no new changes to bilateral lower lobe infiltrates. Plain film showed dilated small bowel with air-fluid levels. No free air.It was felt that he developed ileus with the tube feeds. And that ileus led to dilated loops of small bowel, retained gastric secretions and then the aspiration. was at the bedside. In spite of NG placement, and oxygen, he began showing signs of system failure. Although oxygen saturation was stable, blood pressure was approximately 112 systolic, his distal forearms and hands turned cyanotic. Legs from the knees on down became very mottled and feet were ice cold. He became more more obtunded and unresponsive. His did not want further interventions done. He is already had a very aurelio hospital course, had a new diagnosis of stage IV colon cancer, and she felt that he would not want to continue living life this way. He was DO NOT RESUSCITATE and the patient with his at the bedside. - ALLERGIES Allergies/Adverse Reactions: Allergies Allergy/AdvReac Type Severity Reaction Status Date / Time No Known Drug Allergies Allergy Verified 09/09/17 00:22 - MEDICATIONS Home Medications: Ambulatory Orders Medication Instructions Recorded Confirmed Aspirin [Aspirin EC] 81 mg PO DAILY 09/09/17 07/21/19 Atorvastatin [Lipitor] 10 mg PO DAILY 09/09/17 07/21/19 Calcium Carbonate/Vitamin D3 1 tab PO DAILY 09/09/17 07/21/19 [Calcium 500-Vit D3 600 Caplet] Carvedilol Phosphate [Coreg Cr] 40 mg PO DAILY 09/09/17 07/21/19 Doxycycline Hyclate 50 mg PO DAILY 09/09/17 07/21/19 Krill Oil/[place]-3/Dha/Epa [[place]-3 1 cap PO DAILY 09/09/17 07/21/19 Krill Oil Softgel] Lutein/Zeaxanthin [Ocuvite Lutein 1 cap PO DAILY 09/09/17 07/21/19 25-5 mg Softgel] Ubidecarenone [Co Q-10] 300 mg PO DAILY 09/09/17 07/21/19 dilTIAZem HCl [Diltiazem 24Hr Cd] 300 mg PO DAILY 09/09/17 07/21/19 L. Acidophilus/L. Rhamnosus 1 each PO DAILY 07/21/19 07/21/19 [Probiotic 15 Billion Cell Cap] Lisinopril [Prinivil] 20 mg PO BID 07/21/19 07/21/19 Multivitamin,Therapeutic [Thera] 1 each PO DAILY 07/21/19 07/21/19 - LABS Result Diagrams: 07/28/19 04:05 07/28/19 20:27 - TIME SPENT Time Spent in Discharge (Minutes): 35"
== END 2019-07-29 05:45 | disposition expired | DRG 329 ==
LOC: ED 12:57 → MS2 16:12 → ICU 07-21 20:14
PROVIDERS: ADMIT Nurse Practitioner Gerontology; ATTEND Specialist
PROC: 0DTP0ZZ Resection of Rectum, Open Approach (ICD-10-PCS; 2019-07-21)
PROC: 0D1B0Z4 Bypass Ileum to Cutaneous, Open Approach (ICD-10-PCS; 2019-07-21)
PROC: 07TB0ZZ Resection of Mesenteric Lymphatic, Open Approach (ICD-10-PCS; 2019-07-21)
PROC: 5A1945Z Respiratory Ventilation, 24-96 Consecutive Hours (ICD-10-PCS; 2019-07-21)
PROC: 0DTE0ZZ Resection of Large Intestine, Open Approach (ICD-10-PCS; principal; 2019-07-21 14:15)
DX: K56.609 Unspecified intestinal obstruction, unspecified as to partial versus complete obstruction (principal); K76.9 Liver disease, unspecified; R18.8 Other ascites; I10 Essential (primary) hypertension; E78.00 Pure hypercholesterolemia, unspecified; C18.7 Malignant neoplasm of sigmoid colon; J96.01 Acute respiratory failure with hypoxia; R65.21 Severe sepsis with septic shock; J69.0 Pneumonitis due to inhalation of food and vomit; I50.21 Acute systolic (congestive) heart failure; K55.30 Necrotizing enterocolitis, unspecified; T81.44XA Sepsis following a procedure, initial encounter; C77.2 Secondary and unspecified malignant neoplasm of intra-abdominal lymph nodes; K59.31 Toxic megacolon; J95.89 Other postprocedural complications and disorders of respiratory system, not elsewhere classified; E87.2 Acidosis; E87.0 Hyperosmolality and hypernatremia; K91.89 Other postprocedural complications and disorders of digestive system; K56.7 Ileus, unspecified; J98.11 Atelectasis; F10.239 Alcohol dependence with withdrawal, unspecified; N17.9 Acute kidney failure, unspecified; I48.0 Paroxysmal atrial fibrillation; E87.8 Other disorders of electrolyte and fluid balance, not elsewhere classified; E86.0 Dehydration; I11.0 Hypertensive heart disease with heart failure; E87.6 Hypokalemia; D53.9 Nutritional anemia, unspecified; I25.10 Atherosclerotic heart disease of native coronary artery without angina pectoris; E78.5 Hyperlipidemia, unspecified; Y83.6 Removal of other organ (partial) (total) as the cause of abnormal reaction of the patient, or of later complication, without mention of misadventure at the time of the procedure; Y92.230 Patient room in hospital as the place of occurrence of the external cause; T50.3X5A Adverse effect of electrolytic, caloric and water-balance agents, initial encounter; R79.89 Other specified abnormal findings of blood chemistry; H57.9 Unspecified disorder of eye and adnexa; R29.6 Repeated falls; Z66 Do not resuscitate; Z51.5 Encounter for palliative care; Z78.1 Physical restraint status; Z79.82 Long term (current) use of aspirin; Z79.899 Other long term (current) drug therapy
CPT/HCPCS: 36415; 36600; 71045; 74018; 74177; 76000; 80048; 80053; 80076; 81003; 82040; 82150; 82330; 82607; 82746; 82803; 83605; 83690; 83735; 83880; 84100; 84443; 84484; 85025; 85610; 87040; 87150; 92526; 92610; 93005; 93306; 94002; 94003; 94660; 96360; 97163; 99284; 99285; A6250; A9270; C8929; J0171; J0330; J1650; J1815; J2060; J3010; J3411; J3490; J7120; Q9957; Q9961; Q9967; 80320; 81001; 84134; 87086; 94770